=== PATIENT | male | born 1950 | race Caucasian/White ===

== ENCOUNTER 2017-09-06 16:12 | Observation (INO) | payer OTHER ==
[2017-09-06] MEDS ORDERED: MORPHINE 4 MG/ML SYR ONE (17:37)
[2017-09-06] MEDS ORDERED: ONDANSETRON 4 MG/2 ML VIAL ONE ×2 (17:37→21:20)
[2017-09-06] MEDS ORDERED: NA CHLORIDE 0.9% 1,000 ML ONE ×2 (17:37→20:48)
[2017-09-06 18:01] LABS: Absolute Lymphocytes (CBC) 1.5 K/uL (0.7-4.9); Absolute Monocytes 1.4 K/uL (0.1-1.3); Absolute Neutrophil 14.2 K/uL (1.8-8.0); Basophils % 0.6 % (0-1.3); Eosinophils % 1.8 % (0-4.4); Lymphocytes % 8.4 % (15.3-44.8); MCH 28.4 pg (27.0-35.0); MCV 87.1 fL (80-100); MPV 10.4 fL (7.6-11.3); Monocytes % 8.2 % (3.3-12.3); RBC Red Blood Cell Count 5.17 M/uL (4.33-5.43)
[2017-09-06 18:13] LABS: Bicarbonate 30 mEq/L (21-31); Glucose Level 99 mg/dL (65-120); Lipase 27 U/L (22-51); Potassium 3.9 mEq/L (3.6-5.0); Sodium Level 138 mEq/L (135-145)
[2017-09-06 18:19] LABS: ALT/SGPT 22 IU/L (10-60); AST/SGOT 17 IU/L (10-42); Albumin 4.4 g/dL (3.2-5.5); Alkaline Phosphatase 74 IU/L (42-121); Amylase Level 55 U/L (28-100); BUN Blood Urea Nitrogen 16 mg/dL (6-20); Bilirubin Direct 0.1 mg/dL (0-0.2); Bilirubin Total 0.9 mg/dL (0.3-1.2); Protein, Total 7.5 g/dL (6.0-8.3)
[2017-09-06 18:50] LABS: Urine Blood NEGATIVE (NEG); Urine Glucose 2+ (NEG); Urine Protein NEGATIVE (NEG); Urine Specific Gravity 1.025 (1.005-1.030); Urine pH 6.5 (5.0-7.0)
--- NOTE | 2017-09-06 20:30 | RAD REPORT ---
EXAM DESCRIPTION: CT - Abdomen Pelvis W Contrast - 09/06/2017 7:59 pm CLINICAL HISTORY: Abdominal pain. Lower abdominal pain COMPARISON: None. TECHNIQUE: Computed axial tomography of the abdomen and pelvis was obtained. 100 cc Isovue-300 is ad ministered intravenously. Oral contrast was given. All CT scans are performed using dose optimization technique as appropriate and may include automated exposure control or mA/KV adjustment according to patient size. FINDINGS: The liver, spleen, pancreas, adrenals and left kidney appear unremarkable. A nonobstructing [address] calculus is present within the right kidney A 6 millimeter calcification is present within the base of the appendix. The appendix is dilated and fluid-filled. Moderate stranding is present within the adjacent fat. A 26 x 1.5 millimeter curvilinear radiopaque structure is present within the posterior lower pelvis The heart is mildly enlarged IMPRESSION: Appendicitis 26 x 1.5 millimeter curvilinear radiopaque structure within the posterior lower pelvis is of uncertai n etiology. This may represent a foreign body
--- NOTE | 2017-09-06 20:42 | EDPHYS ---
Physician Documentation [facility] Name: Sony Luciano Age: 67 yrs Sex: Male : 1950 Arrival Date: 09/06/2017 Time: 16:12 Bed 15 Private MD: Rom Hamilton V ED Physician Kvng Kim HPI: 09/06 17:15 This 67 yrs old Male presents to ER via Ambulatory with complaints of kb Abdominal Pain. 17:15 The patient presents with abdominal pain in the lower abdomen. Onset: The kb symptoms/episode began/occurred this morning. The symptoms do not radiate. Associated signs and symptoms: Pertinent negatives: nausea, vomiting, and diarrhea, anorexia, fever. The symptoms are described as constant. Modifying factors: The symptoms are alleviated by nothing, the symptoms are aggravated by pressure. Severity of pain: At its worst the pain was moderate in the emergency department the pain is unchanged. The patient has not experienced similar symptoms in the past. The patient has not recently seen a physician. Pt reports lower abd pain since waking up this morning. Denies any other symptoms. States he has had a suppository and an enema today because he didn't have a BM this morning. Last BM was yesterday. States he is very regular so he should have had one this morning. Historical: - Allergies: 16:25 No Known Allergies; hb - Home Meds: 16:25 Pradaxa oral oral [Active]; hb - PMHx: 16:25 Irregular heart rate; hb - PSHx: 16:25 Shoulder - RIGHT; Shoulder - LEFT; hb - Immunization history:: Adult Immunizations up to date. - Social history:: Smoking status: Patient/guardian denies using tobacco. ROS: 17:18 Constitutional: Negative for fever, chills, and weight loss, Cardiovascular: Negative kb for chest pain, palpitations, and edema, Respiratory: Negative for shortness of breath, cough, wheezing, and pleuritic chest pain, Back: Negative for injury and pain, : Negative for injury, bleeding, discharge, and swelling, MS/Extremity: Negative for injury and deformity, Skin: Negative for injury, rash, and discoloration, Neuro: Negative for headache, weakness, numbness, tingling, and seizure. 17:18 Abdomen/GI: Positive for abdominal pain, Negative for nausea, vomiting, and diarrhea, constipation, abdominal cramps, abdominal distension, anorexia. Exam: 17:17 Constitutional: This is a well developed, well nourished patient who is awake, alert, kb and in no acute distress. Head/Face: Normocephalic, atraumatic. Chest/axilla: Normal chest wall appearance and motion. Nontender with no deformity. No lesions are appreciated. Cardiovascular: Regular rate and rhythm with a normal S1 and S2. No gallops, murmurs, or rubs. Normal PMI, no JVD. No pulse deficits. Respiratory: Lungs have equal breath sounds bilaterally, clear to auscultation and percussion. No rales, rhonchi or wheezes noted. No increased work of breathing, no retractions or nasal flaring. Back: No spinal tenderness. No costovertebral tenderness. Full range of motion. Skin: Warm, dry with normal turgor. Normal color with no rashes, no lesions, and no evidence of cellulitis. MS/ Extremity: Pulses equal, no cyanosis. Neurovascular intact. Full, normal range of motion. Neuro: Awake and alert, GCS 15, oriented to person, place, time, and situation. Cranial nerves II-XII grossly intact. Motor strength 5/5 in all extremities. Sensory grossly intact. Cerebellar exam normal. Normal gait. 17:17 Abdomen/GI: Inspection: abdomen appears normal, Bowel sounds: normal, in all quadrants, Palpation: soft, in all quadrants, nontender, in the right upper quadrant, left upper quadrant and left lower quadrant, moderate abdominal tenderness, in the right lower quadrant. Vital Signs: 16:23 BP 171 / 101; Pulse 87; Resp 18; Temp 98.4; Pulse Ox 100% on R/A; Weight 104.33 kg; hb Height 5 ft. 11 in. (180.34 cm); Pain 7/10; 18:00 BP 145 / 98; Pulse 92; Resp 18; Pulse Ox 99% on R/A; ph 19:00 BP 148 / 78; Pulse 90; Resp 18; Pulse Ox 99% on R/A; ph 20:04 BP 147 / 88; Pulse 84; Resp 16; Pulse Ox 97% on R/A; mt 21:30 BP 145 / 86; Pulse 82; Resp 17; Temp 97.9(O); Pulse Ox 100% ; Pain 6/10; bs1 16:23 Body Mass Index 32.08 (104.33 kg, 180.34 cm) hb MDM: 17:07 Patient medically screened. kb 17:17 Data reviewed: vital signs, nurses notes. Data interpreted: Pulse oximetry: on room air kb is 100 %. Interpretation: normal. 20:41 Counseling: I had a detailed discussion with the patient and/or guardian regarding: the kb historical points, exam findings, and any diagnostic results supporting the discharge/admit diagnosis, lab results, radiology results, the need for further work-up and treatment in the hospital. Physician consultation: Jamie Soto MD was contacted at 20:41, regarding admission, to the operating room, patient's condition, and will see patient in ED, shortly. 09/06 17:08 Order name: Amylase, Serum; Complete Time: 18:20 kb 09/06 17:08 Order name: Basic Metabolic Panel; Complete Time: 18:20 kb 09/06 17:08 Order name: CBC with Diff; Complete Time: 18:03 kb 09/06 17:08 Order name: Hepatic Function; Complete Time: 18:20 kb 09/06 17:08 Order name: Lipase; Complete Time: 18:20 kb 09/06 17:57 Order name: Urine Dipstick--Ancillary (enter results) bd 09/06 17:15 Order name: CT Abd/Pelvis - W/Contrast; Complete Time: 20:32 kb 09/06 17:57 Order name: Urine Dipstick-Ancillary; Complete Time: 18:53 EDMS 09/06 20:36 Order name: Chest Single View XRAY; Complete Time: 21:26 kb 09/06 17:08 Order name: Urine Dipstick-Ancillary (obtain specimen); Complete Time: 17:55 kb 09/06 17:08 Order name: IV Saline Lock; Complete Time: 17:55 kb 09/06 17:08 Order name: Labs collected and sent; Complete Time: 17:55 kb 09/06 20:36 Order name: EKG; Complete Time: 20:37 kb 09/06 20:36 Order name: EKG - Nurse/Tech; Complete Time: 21:12 kb 09/06 21:36 Order name: Blood Glucose Level; Complete Time: 21:36 bs1 Administered Medications: 17:54 Drug: Zofran 4 mg Route: IVP; Site: left antecubital; ph 21:42 Follow up: Response: No adverse reaction bs1 17:55 Drug: NS 0.9% 1000 ml Route: IV; Rate: 1000 ml; Site: left antecubital; ph 21:36 Follow up: IV Status: Completed infusion bs1 17:55 Drug: morphine 4 mg Route: IVP; Site: left antecubital; ph 21:42 Follow up: Response: No adverse reaction bs1 21:11 Drug: Flagyl 500 mg Volume: 100 ml; Route: IVPB; Rate: 200 ml/hr; Infused Over: 30 bs1 mins; Site: right antecubital; 21:36 Follow up: IV Status: Infusion continued upon admission bs1 21:11 Drug: NS 0.9% 1000 ml Route: IV; Rate: 125 ml/hr; Site: right antecubital; bs1 21:36 Follow up: IV Status: Infusion continued upon admission bs1 21:12 Drug: Cipro 400 mg Volume: 200 ml; Route: IVPB; Infused Over: 60 mins; Site: right bs1 antecubital; 21:37 Follow up: IV Status: Infusion continued upon admission bs1 Disposition: 09/06/17 20:41 Hospitalization ordered by Jamie Soto for Observation. Preliminary diagnosis is Acute appendicitis. - Bed requested for Telemetry/MedSurg (observation). - Status is Observation. bs1 - Condition is Stable. - Problem is new. - Symptoms are unchanged. UTI on Admission? No Addendum: 09/10/2017 19:16 Co-signature as Attending Physician, Kvng Kim MD. g s Signatures: Dispatcher [employer] EDWA Aline Tapia, LIAM-Rosa WHEELER-Augusta Kelley RN JUSTINA Fanny Whitlock RN JUSTINA Chelita Reaves, RN JUSTINA Kvng Kim MD MD Daniela Salcido, RN RN bs1 Corrections: (The following items were deleted from the chart) 09/06 20:45 20:41 Hospitalization Ordered by Jamie Soto MD for Observation. Preliminary mw diagnosis is Acute appendicitis. Bed requested for Telemetry/MedSurg (observation). Status is Observation. Condition is Stable. Problem is new. Symptoms are unchanged. UTI on Admission? No. kb 20:56 20:45 09/06/2017 20:41 Hospitalization Ordered by Jamie Soto MD for Observation. mw Preliminary diagnosis is Acute appendicitis. Bed requested for Telemetry/MedSurg (observation). Status is Observation. Condition is Stable. Problem is new. Symptoms are unchanged. UTI on Admission? No. mw 21:42 20:56 09/06/2017 20:41 Hospitalization Ordered by Jamie Soto MD for Observation. bs1 Preliminary diagnosis is Acute appendicitis. Bed requested for Telemetry/MedSurg (observation). Status is Observation. Condition is Stable. Problem is new. Symptoms are unchanged. UTI on Admission? No. mw
--- NOTE | 2017-09-06 20:42 | ER ---
Nurse's Notes [facility] Name: Sony Luciano Age: 67 yrs Sex: Male : 1950 Arrival Date: 09/06/2017 Time: 16:12 Bed 15 Private MD: Rom Hamilton V Diagnosis: Acute appendicitis Presentation: 09/06 16:21 Presenting complaint: Patient states: Lower abdominal pain upon waking today. Denies hb N/V/D. Last BM was yesterday. Transition of care: patient was not received from another setting of care. Onset of symptoms was September 06, 2017. Initial Sepsis Screen: Does the patient meet any 2 criteria? No. Patient's initial sepsis screen is negative. Does the patient have a suspected source of infection? No. Patient's initial sepsis screen is negative. Care prior to arrival: None. 16:21 Method Of Arrival: Ambulatory hb 16:21 Acuity: CHRIS 3 hb Historical: - Allergies: 16:25 No Known Allergies; hb - Home Meds: 16:25 Pradaxa oral oral [Active]; hb - PMHx: 16:25 Irregular heart rate; hb - PSHx: 16:25 Shoulder - RIGHT; Shoulder - LEFT; hb - Immunization history:: Adult Immunizations up to date. - Social history:: Smoking status: Patient/guardian denies using tobacco. Screenin:56 Abuse screen: Denies threats or abuse. Denies injuries from another. Nutritional ph screening: No deficits noted. Tuberculosis screening: No symptoms or risk factors identified. Fall Risk None identified. Assessment: 17:30 General: Appears in no apparent distress. comfortable, slender, well groomed, Behavior ph is calm, cooperative, appropriate for age, Denies fever, feeling ill. Pain: Complains of pain in right lower quadrant and left lower quadrant Pain does not radiate. Neuro: Level of Consciousness is awake, alert, obeys commands, Oriented to person, place, time, situation. Cardiovascular: Capillary refill < 3 seconds Patient's skin is warm and dry. Respiratory: Airway is patent Respiratory effort is even, unlabored, Respiratory pattern is regular, symmetrical. GI: Abdomen is flat, non-distended, Bowel sounds present X 4 quads. Abd is soft X 4 quads Abdomen is tender to palpation in right lower quadrant Reports lower abdominal pain, Patient currently denies constipation, diarrhea, nausea, vomiting. : Denies burning with urination, inability to void, urinary frequency. Derm: Skin is intact, is healthy with good turgor, Skin is pink, warm \T\ dry. Musculoskeletal: Circulation, motion, and sensation intact. Range of motion: intact in all extremities. 17:55 Reassessment: Pt completed PO contrast, CT notified. ph 18:31 Reassessment: Patient appears in no apparent distress at this time. Patient and/or ph family updated on plan of care and expected duration. Pain level reassessed. Patient is alert, oriented x 3, equal unlabored respirations, skin warm/dry/pink. Pt resting quietly, awaiting CT scan. 19:10 Reassessment: Patient appears in no apparent distress at this time. No changes from bs1 previously documented assessment. Patient and/or family updated on plan of care and expected duration. Pain level reassessed. Patient is alert, oriented x 3, equal unlabored respirations, skin warm/dry/pink. Report received from JUSTINA Escobedo. Pain: Complains of pain in abdomen and left lower quadrant and left upper quadrant and right upper quadrant and right lower quadrant Pain does not radiate. Neuro: Level of Consciousness is awake, alert, obeys commands, Oriented to person, place, time, situation, Appropriate for age. Respiratory: Airway is patent Respiratory effort is even, unlabored, Respiratory pattern is regular, symmetrical, Breath sounds are clear bilaterally. GI: Abdomen is flat, non-distended, Bowel sounds present X 4 quads. Abd is soft X 4 quads Abdomen is tender to palpation X 4 quads. 20:30 Reassessment: No changes from previously documented assessment. Patient and/or family bs1 updated on plan of care and expected duration. Pain level reassessed. Patient is alert, oriented x 3, equal unlabored respirations, skin warm/dry/pink. 21:39 Reassessment: Patient appears in no apparent distress at this time. No changes from bs1 previously documented assessment. Patient and/or family updated on plan of care and expected duration. Pain level reassessed. Patient is alert, oriented x 3, equal unlabored respirations, skin warm/dry/pink. Patient going straight to OR, report given to JUSTINA Mccann, EKG done, BG 89, vitals wnl. Vital Signs: 16:23 BP 171 / 101; Pulse 87; Resp 18; Temp 98.4; Pulse Ox 100% on R/A; Weight 104.33 kg; hb Height 5 ft. 11 in. (180.34 cm); Pain 7/10; 18:00 BP 145 / 98; Pulse 92; Resp 18; Pulse Ox 99% on R/A; ph 19:00 BP 148 / 78; Pulse 90; Resp 18; Pulse Ox 99% on R/A; ph 20:04 BP 147 / 88; Pulse 84; Resp 16; Pulse Ox 97% on R/A; mt 21:30 BP 145 / 86; Pulse 82; Resp 17; Temp 97.9(O); Pulse Ox 100% ; Pain 6/10; bs1 16:23 Body Mass Index 32.08 (104.33 kg, 180.34 cm) hb ED Course: 16:12 Patient arrived in ED. as 16:14 Rom Hamilton MD is Private Physician. as 16:23 Triage completed. hb 16:23 Arm band placed on left wrist. hb 17:07 Aline Tapia FNP-C is PHCP. kb 17:07 Kvng Kim MD is Attending Physician. kb 17:11 Fanny Whitlock, JUSTINA is Primary Nurse. ph 17:50 Initial lab(s) drawn, by me, sent to lab. Inserted saline lock: 22 gauge in left ph antecubital area, using aseptic technique. Blood collected. 17:59 Patient has correct armband on for positive identification. Placed in gown. Bed in low ph position. Call light in reach. Side rails up X 1. Pulse ox on. NIBP on. Warm blanket given. 18:00 No provider procedures requiring assistance completed. ph 19:[address] via wheelchair. nj 19:59 CT Abd/Pelvis - W/Contrast In Process Unspecified. EDMS 20:00 CT completed. Patient tolerated procedure well. Patient moved back from CT. nj 20:41 Jamie Soto MD is Hospitalizing Provider. kb 21:02 X-ray completed. Portable x-ray completed in exam room. Patient tolerated procedure bb2 well. 21:03 Chest Single View XRAY In Process Unspecified. EDMS 21:41 Patient admitted, IV remains in place. intact. bs1 Administered Medications: 17:54 Drug: Zofran 4 mg Route: IVP; Site: left antecubital; ph 21:42 Follow up: Response: No adverse reaction bs1 17:55 Drug: NS 0.9% 1000 ml Route: IV; Rate: 1000 ml; Site: left antecubital; ph 21:36 Follow up: IV Status: Completed infusion bs1 17:55 Drug: morphine 4 mg Route: IVP; Site: left antecubital; ph 21:42 Follow up: Response: No adverse reaction bs1 21:11 Drug: Flagyl 500 mg Volume: 100 ml; Route: IVPB; Rate: 200 ml/hr; Infused Over: 30 bs1 mins; Site: right antecubital; 21:36 Follow up: IV Status: Infusion continued upon admission bs1 21:11 Drug: NS 0.9% 1000 ml Route: IV; Rate: 125 ml/hr; Site: right antecubital; bs1 21:36 Follow up: IV Status: Infusion continued upon admission bs1 21:12 Drug: Cipro 400 mg Volume: 200 ml; Route: IVPB; Infused Over: 60 mins; Site: right bs1 antecubital; 21:37 Follow up: IV Status: Infusion continued upon admission bs1 Outcome: 20:41 Decision to Hospitalize by Provider. kb 21:40 Admitted to OR accompanied by nurse, via stretcher, with chart, Other Report given to bs1 JUSTINA Mccann. patient going straight to OR then to rm 211. 21:40 Condition: stable 21:40 Instructed on the need for admit, Demonstrated understanding of instructions. 21:42 Patient left the ED. bs1 Signatures: Dispatcher [employer] EDUT Aline Tapia, KRISTEN WHEELER-Sherly Hoffmann Patricia, RN RN Chelita Reaves RN RN Carlos, Kerwin Morelos, Daniela Reed mt, Brittany, RN RN bs1 Corrections: (The following items were deleted from the chart) 18:33 17:56 General: Appears in no apparent distress. comfortable, slender, well groomed, ph Behavior is calm, cooperative, appropriate for age, Denies fever, feeling ill, ph 18:33 17:56 Pain: Complains of pain in right lower quadrant and left lower quadrant Pain does ph not radiate. ph 18:33 17:56 Neuro: Level of Consciousness is awake, alert, obeys commands, Oriented to ph person, place, time, situation, ph 18:33 17:56 Cardiovascular: Capillary refill < 3 seconds Patient's skin is warm and dry. ph ph 18:33 17:56 Respiratory: Airway is patent Respiratory effort is even, unlabored, Respiratory ph pattern is regular, symmetrical, ph 18:33 17:56 GI: Abdomen is flat, non-distended, Bowel sounds present X 4 quads. Abd is soft X ph 4 quads Abdomen is tender to palpation in right lower quadrant Reports lower abdominal pain, Patient currently denies constipation, diarrhea, nausea, vomiting, ph 18:33 17:56 Derm: Skin is intact, is healthy with good turgor, Skin is pink, warm \T\ dry. ph ph 18:33 17:56 : Denies burning with urination, inability to void, urinary frequency, ph ph 18:33 17:56 Musculoskeletal: Circulation, motion, and sensation intact. Range of motion: ph intact in all extremities, ph
[2017-09-06] MEDS ORDERED: METRONIDAZOLE 500mg IVPB 500 MG/100 ML BAG IV ONE (20:48)
[2017-09-06] MEDS ORDERED: CIPROFLOXACIN 400mg IV 400 MG/200 ML BAG IV ONE (20:48)
[2017-09-06] MEDS ORDERED: PROPOFOL 200 MG/20 ML VIAL IV ONE (21:19)
[2017-09-06] MEDS ORDERED: MIDAZOLAM HCL 2 MG/2 ML INJ ONE (21:19)
[2017-09-06] MEDS ORDERED: GLYCOPYRROLATE 0.2 MG/ML SYR ONE (21:20)
[2017-09-06] MEDS ORDERED: FENTANYL CITR 100 MCG/2 ML ONE (21:20)
[2017-09-06] MEDS ORDERED: KETOROLAC 30 MG/ML INJ ONE (21:21)
[2017-09-06] MEDS ORDERED: LIDOCAINE 1% MPF 5 ML VIAL ONE (21:21)
[2017-09-06] MEDS ORDERED: ROCURONIUM 50 MG/5 ML VIAL IV ONE (21:21)
[2017-09-06] MEDS ORDERED: NEOSTIGMINE 1 MG/ML -5 ML SYRINGE ONE (21:22)
--- NOTE | 2017-09-06 21:23 | RAD REPORT ---
EXAM DESCRIPTION: [place] Single View09/06/2017 9:03 pm CLINICAL HISTORY: abd pain COMPARISON: June 2017 FINDINGS: The lungs appear clear of acute infiltrate. The heart is mildly to moderately enlarged IMPRESSION: No acute abnormalities displayed
--- NOTE | 2017-09-06 21:37 | P.BOP ---
Preoperative diagnosis: acute appendicitis Postoperative diagnosis: same Primary procedure: Laparoscopic appendectomy Estimated blood loss: <10cc Specimen: rhonda Findings: as above Anesthesia: General Complications: None Transferred to: Recovery Room Condition: Good
[2017-09-06] MEDS ORDERED: MORPHINE 4 MG/ML SYR IV PRN (22:06)
[2017-09-06] MEDS ORDERED: ACETAMINOPHEN 500 MG TAB PO PRN (22:06)
[2017-09-06] MEDS ORDERED: ONDANSETRON 4 MG/2 ML VIAL IV PRN (22:06)
[2017-09-06] MEDS ORDERED: HYDRALAZINE HCL 20 MG/ML VIAL ONE (22:57)
[2017-09-06] MEDS ORDERED: D50W 25 GM/50 ML SYRINGE IV ONE (23:04)
[2017-09-06] MEDS ORDERED: HYDROCODONE/APAP 7.5/325 MG TAB PO PRN (23:13)
[2017-09-06] MEDS: NA CHLORIDE 0.9% 1,000 ML IV SCH (23:47)
[2017-09-06] MEDS: METRONIDAZOLE 500mg IVPB 500 MG/100 ML BAG IV SCH (23:47)
[2017-09-07 05:15] LABS: Absolute Lymphocytes (CBC) 1.7 K/uL (0.7-4.9); Absolute Monocytes 1.4 K/uL (0.1-1.3); Absolute Neutrophil 12.2 K/uL (1.8-8.0); Basophils % 0.4 % (0-1.3); Eosinophils % 1.2 % (0-4.4); Hematocrit 40.5 % (39.6-49.0); Lymphocytes % 10.9 % (15.3-44.8); MCH 28.7 pg (27.0-35.0); MCV 87.6 fL (80-100); MPV 11.2 fL (7.6-11.3); Monocytes % 9.1 % (3.3-12.3); RBC Red Blood Cell Count 4.63 M/uL (4.33-5.43)
[2017-09-07 05:45] LABS: BUN Blood Urea Nitrogen 14 mg/dL (6-20); Bicarbonate 26 mEq/L (21-31); Glucose Level 80 mg/dL (65-120); Potassium 3.8 mEq/L (3.6-5.0); Sodium Level 141 mEq/L (135-145)
[2017-09-07] MEDS: NA CHLORIDE 0.9% 1,000 ML IV SCH (05:48)
[2017-09-07] MEDS: METRONIDAZOLE 500mg IVPB 500 MG/100 ML BAG IV SCH ×2 (05:48→11:48)
[2017-09-07] MEDS ORDERED: PNEUMOCOCCAL VACCINE 0.5 ML IMVAC ONE (06:00)
[2017-09-07] MEDS ORDERED: Morphine 2 MG/2 ML SYR IV PRN (07:18)
[2017-09-07] MEDS ORDERED: CIPROFLOXACIN 400mg IV 400 MG/200 ML BAG IV SCH (09:00)
--- NOTE | 2017-09-07 10:25 | HP ---
Date of Admission: 09/06/2017 Diagnosis: Right lower quadrant pain. History Of Present Illness: This is the case of a 67-year-old patient complaining of periumbilical r ight lower quadrant pain since yesterday associated with nausea and vomiting. Today, it is getting w orse, so he has had to come to the ER [facility]. He denies any dysuria, hematuria, hematochezia, or me carlos. Denies any recent traveling out of the country. Denies any family member sick at home. [facility] had a colonoscopy about 3 years ago and it was negative. The patient had a shoulder surgery about 2 weeks ago. He is a chronic user of Pradaxa. He is right now rehabbed for his shoul tyson. Past Medical History: Irregular heat rate. Medications: Pradaxa. Past Surgical History: Right shoulder surgery recently. Family History: No colon cancer. Social History: He does not smoke. He does not drink alcohol. Review of Systems: Constitutional: The patient denies any fever or chills. Respiratory: Denies any shortness of breath. Gastrointestinal: As above. He denies any dysuria, hematuria. Physical Examination: General: The patient is awake and alert. HEENT: Pupils are equal and reactive, anicteric. Neck: Supple. Chest: Clear. Heart: S1, S2. Abdomen: Right lower quadrant tenderness with guarding and rebound. Rectal: Deferred. Genitalia: Deferred. Extremities: In the right upper extremity, the patient has immobilized shoulder, although he can fle x his elbow and put it over his body torso. No cyanosis. Dorsalis pedis pulses bilaterally present. Also, no cyanosis of the hands. Neuro: Cranial nerves 2 through 12 grossly within normal limits. Laboratory Data: Blood work shows WBC count of 17.5 with a potassium 3.9 and creatinine is 0.78. Imaging: CAT scan of abdomen and pelvis interpreted by Dr. Taveras as acute appendicitis. Also righ t kidney stone, the patient has pain. Assessment: This is a 67-year-old patient with acute appendicitis. The benefits, alternatives, and risks of emergent laparoscopic, possible open appendectomy fully explained to the patient, which incl ude but are not limited to infection, bleeding, damage to adjacent structures, anesthesia complicatio n, abscess, PR, even . He also understands this may not relieve any symptoms. He might need mo re than one surgical intervention. He understood. The OR was emergently called. LINWOOD Voice ID: [id number]
--- NOTE | 2017-09-07 12:13 | P.HP ---
Certification for Inpatient Patient admitted to: Inpatient With expected LOS: >2 Midnights Practitioner: I am a practitioner with admitting privileges, knowledge of patient current condition, hospital course, and medical plan of care. Services: Services provided to patient in accordance with Admission requirements found in Title 42 Section 412.3 of the Code of Federal Regulations Patient History Date of Service: 09/07/17 Reason for admission: CONSTIPATION. History of Present Illness: MR. WALLACE HAS HAD CONSTIPATION JUST LATELY. HE IS USUALLY REGULAR. COMES TO ER . HE SAID HE DID NOT HAVE MUCH PAIN. HE HAD TAKEN AN ENEMA YESTERDAY. HE WAS TENDER RLQ PER EXAMINER. HIS CT SCAN SHOWED ACUTE APPENDICITIS. HE HAD SURGERY BY DR. Klarissa GALINDO AND NOW HE IS ON THE FLOOR. I AM HIS PCMD. THEY CALLED ME TO MANAGE HIS DM. Allergies No Known Allergies Allergy (Unverified 09/07/17 09:51) Home Medications: Allopurinol [Zyloprim*] 300 mg PO DAILY 09/07/17 Dabigatran Etexilate Mesylate [Pradaxa*] 150 mg PO DAILY 09/07/17 Digoxin [Lanoxin] 250 mg PO DAILY 09/07/17 Empagliflozin/Metformin HCl [Synjardy 12.5-1,000 mg Tablet] 12.5 units PO BID Furosemide 40 mg PO DAILY 09/07/17 Insulin Glargine,Hum.rec.anlog [Lantus] 70 units SQ BID 09/07/17 Lisinopril 40 mg PO DAILY 09/07/17 Potassium Chloride [Klor-Con 10] 10 meq PO DAILY 09/07/17 Rosuvastatin [Crestor*] 20 mg PO BEDTIME 09/07/17 - Past Medical/Surgical History Has patient received pneumonia vaccine in the past: Yes Diabetic: Yes -: Diabetes Mellitus -: Afib -: HTN -: Sleep Apnea -: R shoulder surgery - Family History Father -: Other (see notes) Notes: Dad has no known disease Mother -: Other (see notes) Notes: Brain tumor - Social History Smoking Status: Never smoker Alcohol use: Yes CD- Drugs: No Caffeine use: Yes Place of Residence: Home Review of Systems 10-point ROS is otherwise unremarkable Physical Examination - Vital Signs Temperature: 97.8 F Blood Pressure: 153/74 Pulse: 94 Respirations: 16 Pulse Ox (%): 98 - Physical Exam General: Alert, In no apparent distress HEENT: Atraumatic, PERRLA, Mucous membr. moist/pink, EOMI, Sclerae nonicteric Neck: Supple, 2+ carotid pulse no bruit, No LAD, Without JVD or thyroid abnormality Respiratory: Clear to auscultation bilaterally, Normal air movement Cardiovascular: Regular rate/rhythm, Normal S1 S2 Gastrointestinal: Normal bowel sounds, Non-distended (POST OP TENDER.), No tenderness Musculoskeletal: No tenderness Integumentary: No rashes Neurological: Normal gait, Normal speech, Normal strength at 5/5 x4 extr, Normal tone, Normal affect Lymphatics: No axilla or inguinal lymphadenopathy - Studies Laboratory Data (last 24 hrs) 09/06/17 17:50: WBC 17.5 H, Hgb 14.7, Hct 45.0, Plt Count 194 09/06/17 17:50: Sodium 138, Potassium 3.9, BUN 16, Creatinine 0.78, Glucose 99, Total Bilirubin 0.9, AST 17, ALT 22, Alkaline Phosphatase 74, Amylase 55, Lipase 27 Assessment and Plan - Problems (Diagnosis) (1) Foreign body Current Visit: Yes Status: Acute Plan: ON CT SCAN UNCLEAR WHAT THIS IS COULD THIS BE IN RECTUM? HE TOOK AN ENEMA BUT FRIEND SAYS THE WHOLE TUBE WAS INTACT. (2) Diabetes Current Visit: Yes Status: Acute Qualifiers: Diabetes mellitus type: type 2 (3) A-fib Current Visit: Yes Status: Acute Plan: STABLE. Qualifiers: Atrial fibrillation type: chronic Qualified Code(s): I48.2 - Chronic atrial fibrillation (4) Acute appendicitis Onset Date: 09/07/17 Current Visit: Yes Status: Acute Plan: SP SURGERY. STABLE MEDIALLY. - Advance Directives Does patient have a Living Will: Yes Does patient have a Durable POA for Healthcare: Yes
--- NOTE | 2017-09-07 14:19 | P.DS ---
Admission Date: 09/06/17 Discharge Date: 09/07/17 Disposition: ROUTINE DISCHARGE Discharge Condition: GOOD Reason for Admission: appendicitis, peritonitis Vital Signs/Physical Exam: Temp Pulse Resp BP Pulse Ox 97.8 F 94 H 16 153/74 H 98 09/07/17 12:13 09/07/17 12:13 09/07/17 12:13 09/07/17 12:13 09/07/17 12:13 General: Alert, In no apparent distress, Oriented x3, Cooperative HEENT: PERRLA, EOMI Neck: Supple Cardiovascular: No edema, Normal pulses Gastrointestinal: Soft and benign Musculoskeletal: No erythema, No tenderness, No warmth Integumentary: No rashes, No breakdown, No cyanosis Neurological: Normal speech Laboratory Data at Discharge: WBC 15.5 K/uL (4.3-10.9) H 09/07/17 04:17 Hgb 13.3 g/dL (13.6-17.9) L 09/07/17 04:17 Hct 40.5 % (39.6-49.0) 09/07/17 04:17 Plt Count 170 K/uL (152-406) 09/07/17 04:17 Sodium 141 mEq/L (135-145) 09/07/17 04:17 Potassium 3.8 mEq/L (3.6-5.0) 09/07/17 04:17 BUN 14 mg/dL (6-20) 09/07/17 04:17 Creatinine 0.71 mg/dL (0.61-1.24) 09/07/17 04:17 Glucose 80 mg/dL (65-120) 09/07/17 04:17 Total Bilirubin 0.9 mg/dL (0.3-1.2) 09/06/17 17:50 AST 17 IU/L (10-42) 09/06/17 17:50 ALT 22 IU/L (10-60) 09/06/17 17:50 Alkaline Phosphatase 74 IU/L (42-121) 09/06/17 17:50 Amylase 55 U/L (28-100) 09/06/17 17:50 Lipase 27 U/L (22-51) 09/06/17 17:50 Home Medications: Allopurinol [Zyloprim*] 300 mg PO DAILY 09/07/17 Ciprofloxacin HCl [Cipro 500 MG Tablet] 500 mg PO BID #12 tab 09/07/17 Codeine/APAP [Tylenol W/Codeine #3 tab] 1 tab PO Q4HP PRN #30 tab 09/07/17 Dabigatran Etexilate Mesylate [Pradaxa*] 150 mg PO DAILY 09/07/17 Digoxin [Lanoxin] 250 mg PO DAILY 09/07/17 Empagliflozin/Metformin HCl [Synjardy 12.5-1,000 mg Tablet] 12.5 units PO BID Furosemide 40 mg PO DAILY 09/07/17 Insulin Glargine,Hum.rec.anlog [Lantus] 70 units SQ BID 09/07/17 Lisinopril 40 mg PO DAILY 09/07/17 Potassium Chloride [Klor-Con 10] 10 meq PO DAILY 09/07/17 Rosuvastatin [Crestor*] 20 mg PO BEDTIME 09/07/17 New Medications: Ciprofloxacin HCl [Cipro 500 MG Tablet] 500 mg PO BID #12 tab Codeine/APAP [Tylenol W/Codeine #3 tab] 1 tab PO Q4HP PRN #30 tab PRN Reason: Pain Diet: AHA Activity: No lifting more than 10 lbs Followup: Rom Hamilton MD [ACTIVE - CAN ADMIT] - 1 Week (Follow up in office in 1 week. Call to schedule an appointment.) Jamie Soto MD [ACTIVE - CAN ADMIT] - 1 Week (Follow up in office in 1 week. Call to schedule an appointment. )
--- NOTE | 2017-09-07 14:38 | EKG ---
Test Date: 2017-09-06 Test Time: 22:50:14 Production Operations Engineer: RT Brown MEASUREMENT RESULTS: Intervals: Rate: 83 ID: QRSD: [id number] QT: 376 QTc: 441 [place]: P: ID: QRS: [id number] T: 158 INTERPRETIVE STATEMENTS: Atrial fibrillation Incomplete left bundle branch block Nonspecific ST and T wave abnormality, probably digitalis effect Abnormal ECG Compared to ECG 09/06/2017 21:02:57 No significant changes Electronically Signed On 09-07-17 14:34:20 CDT by Tad Renee
--- NOTE | 2017-09-07 14:39 | EKG ---
Test Date: 2017-09-06 Test Time: 21:02:57 Telecom Specialist: LES MEASUREMENT RESULTS: Intervals: Rate: 89 OR: QRSD: 118 QT: 364 QTc: 442 [place]: P: OR: QRS: -3 T: 120 INTERPRETIVE STATEMENTS: Atrial fibrillation Incomplete left bundle branch block Nonspecific ST and T wave abnormality, probably digitalis effect Abnormal ECG Compared to ECG 03/09/2012 10:08:12 ST (T wave) deviation now present Electronically Signed On 09-07-17 14:34:24 CDT by Tad Renee
[2017-09-07] MEDS ORDERED: EMPAGLIFLOZIN PO SCH (21:00)
[2017-09-07] MEDS ORDERED: ROSUVASTATIN 10 MG TAB PO SCH (21:00)
[2017-09-07] MEDS ORDERED: INSULIN DETEMIR 100 UNIT/1 ML INSULIN SQ SCH (21:00)
[2017-09-07] MEDS ORDERED: METFORMIN HCL PO SCH (21:00)
[2017-09-07] MEDS ORDERED: [UNRECOGNIZED DRUG - OTHER] PO SCH (21:00)
[2017-09-08] MEDS ORDERED: ALLOPURINOL 300 MG TAB PO SCH (09:00)
[2017-09-08] MEDS ORDERED: FUROSEMIDE 40 MG TABLET PO SCH (09:00)
[2017-09-08] MEDS ORDERED: LISINOPRIL 20 MG TAB PO SCH (09:00)
[2017-09-08] MEDS ORDERED: POTASSIUM CL SA 10 MEQ TAB PO SCH (09:00)
[2017-09-08] MEDS ORDERED: DIGOXIN 0.25 MG TABLET PO SCH (09:00)
[2017-09-08] MEDS ORDERED: DABIGATRAN 150 MG CAP PO SCH (09:00)
--- NOTE | 2017-10-19 00:53 | OP ---
Date of Procedure: 09/06/2017 Surgeon: Jamie Soto MD Diagnosis: Acute appendicitis. Postoperative Diagnosis: Acute appendicitis. Procedure: Laparoscopic appendectomy. Estimated Blood Loss: Less than 10 cc. Specimen: Appendix. Anesthesia: General plus local. Indications: This is a case of a male who came to us with above diagnosis. Fully explained the bene fits, alternatives, and risks of laparoscopic, possible open appendectomy which include but are not l imited to infection, bleeding, damage to adjacent structures, anesthesia complication, RI, and even d eath. He also understands that this may not relieve any symptoms. He might need more than one surgi zehra intervention. He understood and signed a consent. Description Of Procedure: The patient was brought to the operating room and placed in supine positio n. Anesthesia was done without complication. Abdominal area was prepped and draped in the usual elena rile fashion. Marcaine 0.5% was injected for local anesthetic, followed by sharp incision of the ski n in the periumbilical region. Incision was carried down to the fascia, which was opened under direc t vision. Peritoneum was encountered and opened under direct vision. Vicryl #1 was placed inside th e fascia. Tim trocar was carefully introduced. No bleeding was obtained. I proceeded to put 2 m ore trocars, 5 mm each one of them, 1 in the suprapubic area and another one in the left lower quadra nt using the same technique, which consisted of local anesthetic, sharp incision of the skin, and int roduction of the trocars under direct vision. This allowed me to visualize the area of the right upp er quadrant with that of an appendix, looks inflamed, so the base of the appendix seems to be spared, so we created a window in the base of the appendix, transected that with an Endo-ABBY 45 mm 3.5 and t ransected the base of the appendix with Endo-ABBY 45 mm 3.5 and the mesoappendix transected with an En do-ABBY 45 mm 2.5. No bowel leak and no bleeding. At that moment, I removed the appendix with an end o sac through the umbilical incision. The area was inspected once again after irrigation and suction and the area looks intact with no bleeding and no bowel leak. At that moment, I proceeded to remove the trocars under direct vision, deflated the pneumoperitoneum, closed the fascia with #1 Vicryl, ir rigated the subcu tissue, closed that with 3-0 chromic, and skin was approximated. Sponge count and instrument count were correct. The patient tolerated the procedure well. The patient was sent to re covery room in stable condition. RSOARIO/OZZIE Voice ID: [id number] Report ID: [id number]
== END 2017-09-07 14:21 | disposition home or self-care (01) ==
LOC: ER 16:12 → 2ND 21:02
PROVIDERS: ADMIT Surgery; ATTEND Surgery
PROC: 0DTJ4ZZ Resection of Appendix, Percutaneous Endoscopic Approach (ICD-10-PCS; principal; 2017-09-06 21:30)
DX: K35.80 Unspecified acute appendicitis (principal); E11.9 Type 2 diabetes mellitus without complications; I48.2 Chronic atrial fibrillation; I10 Essential (primary) hypertension; R93.5 Abnormal findings on diagnostic imaging of other abdominal regions, including retroperitoneum; Z23 Encounter for immunization
CPT/HCPCS: 36415; 71045; 74177; 80048; 80076; 81003; 82150; 82962; 83690; 85025; 88304; 88305; 90670; 93005; 96361; 96365; 96368; 96375; 99285; G0009; G0378; J0360; J0744; J2250; J2405; J2710; J3010; J7030; Q9967

== ENCOUNTER 2022-11-25 06:24 | Day surgery (SDC) | payer OTHER ==
--- NOTE | 2022-11-23 15:05 | RAD REPORT ---
EXAM DESCRIPTION: Campbell Castañeda (2 Views)11/23/2022 2:50 pm CLINICAL HISTORY: Preop for hernia repair COMPARISON: 2018 FINDINGS: The lungs appear clear of acute infiltrate. The heart is moderately to markedly enlarged IMPRESSION: No acute abnormalities displayed
[2022-11-23 15:07] LABS: Hematocrit 49.4 % (39.6-49.0); Lymphocytes % 19.6 % (15.3-44.8); MCV 92.3 fL (80-100); MPV 9.6 fL (7.6-11.3); RBC Red Blood Cell Count 5.35 M/uL (4.33-5.43)
[2022-11-23 17:52] LABS: Potassium 4.6 mEq/L (3.5-5.1)
[2022-11-25] MEDS ORDERED: NA CHLORIDE 0.9% 1,000 ML ONE ×2 (06:52→09:20)
[2022-11-25] MEDS ORDERED: CEFAZOLIN SODIUM 1 GM/VIAL ONE (06:52)
[2022-11-25] MEDS ORDERED: FENTANYL CITR 100 MCG/2 ML ONE (07:16)
[2022-11-25] MEDS ORDERED: KETOROLAC 30 MG/ML INJ ONE (07:16)
[2022-11-25] MEDS ORDERED: LIDOCAINE 2% MPF 5 ML VIAL ONE (07:16)
[2022-11-25] MEDS ORDERED: ROCURONIUM 50 MG/5 ML VIAL IV ONE (07:16)
[2022-11-25] MEDS ORDERED: propofoL 200 MG/20 ML VIAL IV ONE (07:16)
[2022-11-25] MEDS ORDERED: MIDAZOLAM HCL 2 MG/2 ML INJ ONE (07:17)
[2022-11-25] MEDS ORDERED: ONDANSETRON 4 MG/2 ML VIAL ONE (07:17)
[2022-11-25] MEDS ORDERED: GLYCOPYRROLATE 0.2 MG/ML SYR ONE ×3 (08:10→08:35)
--- NOTE | 2022-11-25 08:19 | P.BOP ---
Preoperative diagnosis: incarcerated tender umbilical hernia Postoperative diagnosis: same Primary procedure: Laparoscopic repair of incarcerated tender umbilical hernia with mesh 3x3cm Agriculture Inspector: SARAH MENDES (RACE CAR DRIVER) Estimated blood loss: <10cc Specimen: sac Findings: incarcerated omentum Anesthesia: General Complications: None Implants: medium ventralex Transferred to: Recovery Room Condition: Good
[2022-11-25] MEDS ORDERED: NEOSTIGMINE 1 MG/ML -10 ML VIAL ONE (08:43)
[2022-11-25 09:36] VITALS: BP 102/43; TEMP 96.4; O2SAT 96
--- NOTE | 2022-11-25 16:26 | DS ---
Date of Discharge: 11/25/2022 Diagnosis: Incarcerated tender umbilical hernia. Procedure: Laparoscopic repair of incarcerated tender umbilical hernia with mesh. Disposition: Home. Activity: As tolerated. No heavy lifting. Plan: Follow up in my office in 1 week. Call for appointment at [phone]. Keep area dry for 48 taj rs, then may shower. Keep Steri-Strips intact. ROSARIO/OZZIE Voice ID: [id number] Report ID: [id number]
--- NOTE | 2022-11-25 16:26 | OP ---
Date of Procedure: 11/25/2022 Surgeon: Jamie Soto MD Procurement Inspector: Deana Bustillo. Preoperative Diagnosis: Incarcerated tender umbilical hernia. Postoperative Diagnosis: Incarcerated tender umbilical hernia. Procedure: Laparoscopic repair of incarcerated tender umbilical hernia with mesh. Estimated Blood Loss: Less than 10 cc. Findings: Incarcerated omentum. Anesthesia: General plus local. Implant: A medium Ventralex mesh. Indication: This is the case of a male, who comes to us with a tender umbilical hernia, cannot be re duced. Benefits, alternatives, and risks of laparoscopic possible repair of umbilical hernia fully e xplained. The area of concern is about 3 x 3 cm. This patient understands the benefits, alternative s, and risks, which include, but not limited to infection, bleeding, damage to adjacent structures, a nesthesia complication, recurrence, CA, and even . He also understands this may not relieve any symptoms. He might need more than one surgical intervention. He also understands the importance of losing weight and being careful with heavy lifting. Constipation is important to avoid too. He und erstands we may use mesh in that regions, so all the pros and cons of mesh were discussed with the sawyer guzman and all the questions were answered to his satisfaction. He signed a consent. The area of con cern was marked by me and the patient in the holding room. Procedure In Detail: The patient was brought to the operating room, placed in supine position. Anes thesia was done without complication. Abdominal area was prepped and draped in the usual sterile fas hion. Local anesthesia was applied followed by sharp incision of the skin in the infraumbilical hammad on. The incision was carried down until we found the fascial edges. We opened the umbilical hernia sac and we found the patient to have the omentum trapped in that area. Some adhesions were removed w ith the scissors and then we were able to reduce omentum after fully inspecting and making sure it wa s viable. We cleaned the fascial edges. We noticed the fascial edges are friable, so we have to tri m them and then I believe he is going to benefit from a mesh in that region, so we put a Tim troca r through that region and obtained pneumoperitoneum. We placed 5 mm trocar to each side of the abdom en. This allowed me to change the camera to those and visualize the area properly. We selected the mesh that covered the area about 3-5 cm. We placed Vicryl #1 inside the fascia to approximate the ar ea after the mesh was placed in. The mesh was then secured in place circumferentially with the help of the SorbaFix fixation device to minimize the chance of intestines getting in between. Once we hav e those areas there, we were able to tie the umbilical fascial edges and approximate with the help wi th #1 Vicryl. This created air and water tight. We looked at the mesh once again inside, we already cut the straps that came attached to it. It looks nice and flat against the abdominal wall. We ins pected the omentum once again and looks viable. So, at that moment, I proceeded to deflate pneumoper itoneum, removed the trocars and closed the subcutaneous tissue with 3-0 chromic and skin with 3-0 ch romic and Steri-Strips on top. Sponge count, instrument counts correct. The patient tolerated the p rocedure well. The patient was sent to recovery in stable condition. ROSARIO/OZZIE Voice ID: [id number] Report ID: [id number]
== END 2022-11-25 10:15 | disposition home or self-care (01) ==
LOC: PRE 06:24 → OR 10:15
PROVIDERS: ATTEND Surgery
PROC: 0WUF4JZ Supplement Abdominal Wall with Synthetic Substitute, Percutaneous Endoscopic Approach (ICD-10-PCS; principal; 2022-11-25 07:30)
DX: K42.0 Umbilical hernia with obstruction, without gangrene (principal)
CPT/HCPCS: 85025; 80048; 36415; 82947 ×2; 88304; 71046; 49594; J2704; J2710; J2001; J2250; J3010; J2405; J7030 ×2; J0690

== ENCOUNTER 2022-12-03 11:46 | Inpatient (IN) | payer OTHER ==
[2022-12-03] MEDS ORDERED: NACHLORIDE 0.45% 1,000 ML IV SCH ×2 (13:00)
[2022-12-03] MEDS ORDERED: ONDANSETRON 4 MG/2 ML VIAL IV PRN (13:00)
[2022-12-03] MEDS ORDERED: ACETAMINOPHEN 325 MG TABLET PO PRN (13:00)
[2022-12-03] MEDS ORDERED: LOPERAMIDE HCL 2 MG CAPSULE PO PRN (13:00)
[2022-12-03] MEDS ORDERED: ONDANSETRON 4 MG (ODT) TAB PO PRN (13:00)
[2022-12-03] MEDS ORDERED: DIPHENHYDRAMINE 25 MG TAB/CAP PO PRN (13:00)
[2022-12-03] MEDS ORDERED: POLYETHYL GLY 3350 17 GM/DOSE PO PRN (13:00)
[2022-12-03] MEDS ORDERED: D50W 25 GM/50 ML SYRINGE IV PRN ×2 (13:05→13:37)
[2022-12-03] MEDS ORDERED: GLUCAGON 1 MG/VIAL IM PRN ×2 (13:05→13:37)
[2022-12-03] MEDS: INSULIN -REGULAR HUMAN 50 UNIT/0.5 ML ML IV ONE ×2 (13:08→16:54)
[2022-12-03] MEDS ORDERED: D50W 25 GM/50 ML SYRINGE IV ONE ×2 (13:15→16:37)
[2022-12-03] MEDS ORDERED: SODIUM ZIRCONIUM CYCLOSILICATE 10 GM/PKT PO ONE (13:15)
[2022-12-03] MEDS ORDERED: D10W 125 ML IV PRN (13:17)
--- NOTE | 2022-12-03 13:17 | EKG ---
Test Date: 2022-12-03 Test Time: 13:10:44 Account Collector: RIMMA MEASUREMENT RESULTS: Intervals: Rate: 29 [place]: QRSD: 162 QT: 502 QTc: 348 [place]: P: CA: QRS: -71 T: 75 INTERPRETIVE STATEMENTS: Idioventricular rhythm Left axis deviation Left bundle branch block Abnormal ECG Compared to ECG 09/06/2017 22:50:14 Idioventricular rhythm now present Left-axis deviation now present Atrial fibrillation no longer present ST (T wave) deviation no longer present Electronically Signed On 12-03-22 13:16:59 CDT by Luis Haque
[2022-12-03 13:57] LABS: Absolute Lymphocytes (CBC) 2.6 K/uL (0.7-4.9); Hematocrit 48.3 % (39.6-49.0); Lymphocytes % 20.5 % (15.3-44.8); MCV 93.1 fL (80-100); MPV 9.7 fL (7.6-11.3); RBC Red Blood Cell Count 5.18 M/uL (4.33-5.43)
[2022-12-03 14:00] LABS: Albumin 4.3 g/dL (3.4-5.0); Bilirubin Direct 0.2 mg/dL (0-0.2); Bilirubin Indirect, Calculated 0.3 mg/dL (0.2-0.8); Bilirubin Total 0.5 mg/dL (0.2-1.0); Protein, Total 7.9 g/dL (6.4-8.2)
[2022-12-03 14:19] LABS: Digoxin Level 1.7 ng/mL (0.80-2.00)
[2022-12-03 14:23] LABS: Potassium 8.1 mEq/L (3.5-5.1)
--- NOTE | 2022-12-03 14:42 | RAD REPORT ---
EXAM DESCRIPTION: RAD - Chest Pa And Lat (2 Views) - 12/03/2022 2:13 pm CLINICAL HISTORY: direct admit COMPARISON: Chest Pa And Lat (2 Views) dated 11/23/2022; Chest Single View dated 09/06/2017; Chest Pa And Lat (2 Views) dated 06/30/2017; CHEST PA AND LAT 2 VIEW dated 03/09/2012 FINDINGS: Lines: None. Lungs: No evidence of edema or pneumonia. Pleural: No significant pleural effusions or pneumothorax. Cardiac: Cardiomegaly. Mediastinum: Within normal limits. Bones: No acute fractures. Other: None IMPRESSION: No acute cardiopulmonary disease.
[2022-12-03] MEDS ORDERED: ALBUTEROL 2.5 MG/3 ML NEB SOL ONE (15:05)
[2022-12-03] MEDS ORDERED: ALBUTEROL 2.5 MG/3 ML NEB SOL NEB ONE (15:11)
[2022-12-03] MEDS ORDERED: CALCIUM GLUCONATE 1 GM IVPB 1 GM/50 ML BAG IV ONE (15:30)
[2022-12-03] MEDS ORDERED: NS 0.9% VIAL 10 ML ONE (15:40)
[2022-12-03] MEDS ORDERED: HEPARIN 5000 UNIT/ML 1 ML VIAL ONE (15:41)
[2022-12-03] MEDS ORDERED: NA CHLORIDE 0.9% 100 ML ONE (15:41)
[2022-12-03] MEDS ORDERED: NS 0.9% VIAL 20 ML ONE (15:48)
[2022-12-03 15:55] LABS: Phosphorus 6.4 mg/dL (2.5-4.9); Thyroid Stimulating Hormone 0.714 uIU/mL (0.358-3.740)
[2022-12-03] MEDS: ALBUTEROL 2.5 MG/3 ML NEB SOL NEB SCH ×3 (16:00→23:30)
[2022-12-03 16:12] LABS: Arterial Blood Carboxyhemoglob 1.2 % (0-1.5); Blood Gas Oxyhemoglobin 93.9 % (94-97); Blood O2 Saturation 96.2 % (92-98.5)
[2022-12-03] MEDS ORDERED: FUROSEMIDE 40 MG/4 ML VIAL IV ONE ×2 (16:17→23:22)
[2022-12-03] MEDS ORDERED: LIDOCAINE 1% 20 ML MDV ONE (16:17)
--- NOTE | 2022-12-03 16:51 | P.CNS ---
Date of Consult: 12/03/22 Reason for consult: Needs urgent dialysis History of present illness: Patient is a 72-year-old gentleman who was admitted with hyperkalemia. Patient was given Bactrim. He was unaware that he was allergic to it. He states that he had a hernia surgery about a week ago. Was doing well until recently. Once the labs were done and patient was admitted to ICU and nephrology consult was obtained. Patient's heart rate is in the 20s. Blood pressure is maintained however. There is no attempt to pace the patient at this time. And I was asked to put a stat Leo catheter for urgent hemodialysis. Review of systems: Patient is awake alert no acute distress. Past medical history: Diabetes type 2, A-fib, Past surgical history: Appendectomy and umbilical hernia repair Allergies: Bactrim Social history: Does not smoke drinks alcohol occasionally Family history: Noncontributory Vital signs: Heart rate in the 20s on paced, blood pressure is within normal limits and afebrile Physical exam: Awake, alert and oriented x3 Head and neck exam: No masses Chest: Clear Heart: S1-S2 Abdomen: Soft Extremity: Neurovascular intact, nontender Neuro: Nonfocal Diagnostic data: Potassium of 8.2 Assessment: Hyperkalemia requiring urgent dialysis Plan/recommendation: Placement of Leo catheter. Patient and understands risk, benefits and alternatives and agrees to procedure. Procedure note: First, patient prepped and draped in usual sterile fashion in the right groin. Doppler device used to locate the right femoral artery. It was difficult because of patient's significant bradycardia. Lidocaine 1% was infiltrated locally. 18-gauge needle used to access presumably the right femoral vein. Blood was dark and did not appear to be pulsatile. Vein was dilated and Seldinger technique was used catheter was placed. There was a very weak pulsatile flow at this time through the catheter. A stat ABG was done. It was consistent with arterial blood. Catheter was removed. Direct pressure was applied for at least 20 minutes. There was no hematoma noted and there was no evidence of bleeding noted pressure dressing was applied and a sandbag was placed. Right neck was prepped and draped in the usual sterile fashion. Lidocaine 1% was infiltrated locally. 18-gauge needle used to access the right IJ vein. Derrick dewire passed. Vein dilated. Seldinger technique used. Catheter placed and secured with 3-0 nylon. Nonpulsatile dark blood was seen. Catheter was flushed with heparin and packed with heparin with good blood flow. 3-0 nylon was used to secure the catheter to the skin. Sterile dressing was applied. Chest x-ray has been ordered. Patient tarted the procedure in stable condition. Dr. Hamilton and the were made aware of difficulty with the right groin region. CC:
--- NOTE | 2022-12-03 17:01 | RAD REPORT ---
EXAM DESCRIPTION: RAD - Chest Single View - 12/03/2022 4:55 pm CLINICAL HISTORY: R/O Pneumo. COMPARISON: Chest Pa And Lat (2 Views) dated 12/03/2022; Chest Pa And Lat (2 Views) dated 11/23/2022; Chest Single View dated 09/06/2017; Chest Pa And Lat (2 Views) dated 06/30/2017 FINDINGS: Lines: Right IJ approach dialysis catheter. The tip is partially obscured by the defibrill ator pads. Lungs: No evidence of edema or pneumonia. Pleural: No significant pleural effusions or pneumothorax. Cardiac: Cardiomegaly. Mediastinum: Within normal limits. Bones: No acute fractures. Other: None IMPRESSION: No pneumothorax. Tip of the dialysis catheter is obscured by the defibrillator pads and cannot be assessed.
[2022-12-03] MEDS ORDERED: DOPAMINE/D5W 400 MG/250 ML BAG IV SCH (17:15)
[2022-12-03] MEDS ORDERED: PNEUMOCOCCAL VACCINE 0.5 ML IMVAC ONE (18:00)
[2022-12-03 19:07] LABS: Protime INR 1.24
[2022-12-03 19:28] LABS: Potassium 6.4 mEq/L (3.5-5.1)
[2022-12-03 19:29] LABS: Bilirubin Total 0.5 mg/dL (0.2-1.0); Magnesium 2.5 mg/dL (1.6-2.4); Phosphorus 6.1 mg/dL (2.5-4.9); Protein, Total 7.4 g/dL (6.4-8.2); Troponin High Sensitivity 30.8 pg/mL (<58.9); Uric Acid 7.8 mg/dL (3.5-7.2)
[2022-12-03 19:32] LABS: Potassium 6.4 mEq/L (3.5-5.1)
[2022-12-03 20:11] LABS: Hepatitis B surface AG Interp. Nonreactive (Nonreactive)
[2022-12-03 20:13] LABS: Hepatitis B Surface Ab - Quant < 3.10 mIU/mL (<8.0)
--- NOTE | 2022-12-03 20:43 | RAD REPORT ---
EXAM DESCRIPTION: RAD - Abdomen 1 View (KUB) - 12/03/2022 6:17 pm CLINICAL HISTORY: jaimie COMPARISON: Chest Single View dated 12/03/2022; Abdomen Pelvis W Contrast dated 09/06/2017 FINDINGS: Nonobstructive bowel gas pattern. No acute osseous abnormality.Visualized lungs are unrema rkable.No abnormal calcifications. Thin linear radiopaque foreign body overlying the pelvis is of unc ertain etiology. It was present on the prior CT from 09/06/2017. IMPRESSION: Nonobstructive bowel gas pattern.
[2022-12-03 21:00] VITALS: BMI 33.2
[2022-12-03] MEDS: INSULIN -REGULAR HUMAN 50 UNIT/0.5 ML ML SQ SCH (21:00)
[2022-12-03] MEDS: SODIUM ZIRCONIUM CYCLOSILICATE 10 GM/PKT PO SCH (21:00)
--- NOTE | 2022-12-03 22:33 | CON ---
Date of Consultation: 12/03/2022 Reason For Consultation: Bradycardia. History Of Present Illness: 72-year-old male who has history of diabetes, atrial fibrillation, hyper tension, he was on digoxin and he was on some diuretics and potassium supplements. He apparently was given Bactrim recently. He went into acute renal failure and presented with severe symptomatic eliot ycardia, heart rate in the low 20s, very fatigued and however, maintaining good blood pressure. Eval uated him by bedside. He was alert, awake, oriented x3, and blood pressure is above 65 with a mean p erfusing pressure was about 65 and systolic was in the 130s. Past Medical History: As outlined above in the HPI. Medications: Refer reconciliation sheet for detailed list. Allergies: NO KNOWN DRUG ALLERGIES. Family History: No premature coronary artery disease or cancer. Social History: Does not smoke or drink. Does not use any drugs. Review of Systems: All systems reviewed and they are negative except mentioned in HPI. Physical Examination: Vital Signs: Reviewed. Head and Neck: Pupils are equal, reactive to light. Intact eye movements. No JVD. No cervical nod es. Neck is supple. Thyroid is not enlarged. Lungs: Clear to auscultation bilaterally. No rhonchi, rales, or crackles. No accessory muscle use. Heart: Regular rate and rhythm. No extra sounds. Abdomen: Soft, nontender. Bowel sounds positive. No organomegaly. No masses or hernia. No rigidi ty or rebound. Extremities: No edema, clubbing, cyanosis. Intact pulses. Skin: No rashes. Neurologic: Alert, awake, oriented x3. No acute focal deficits appreciated. Lymph Nodes: No cervical or axillary lymphadenopathy. Investigations: Potassium is 7, BUN 55, creatinine 7.35. Hemoglobin is 15.6. Assessment And Recommendation: 1.Profound sinus bradycardia. This is due to hyperkalemia. Recommend emergent dialysis, to place a Leo catheter, and start dialysis immediately. 2.I put the patient on transcutaneous pacing and he is maintaining good blood pressure and acceptabl e heart rate. After correcting the hyperkalemia, heart rate should improve, but also patient was on digoxin and the level is still within range at 1.7. So no need for Digibind unless he can sustain hi s bradycardia after dialysis. If bradycardia does not resolve or improve after dialysis, plan for pu tting a temporary intravenous pacemaker. 3.Acute renal failure with severe hyperkalemia, needs emergent dialysis and discussed the case with Nephrology and primary care physician, Dr. Hamilton. 4.Hyperkalemia with severe bradycardia. Plan as above. Thank you for the consult. TRESSA Voice ID: [id number] Report ID: [id number]
[2022-12-03] MEDS: NA CHLORIDE 0.9% 1,000 ML IV SCH (22:40)
[2022-12-03 23:17] LABS: Magnesium 2.1 mg/dL (1.6-2.4); Phosphorus 4.7 mg/dL (2.5-4.9); Potassium 5.8 mEq/L (3.5-5.1)
[2022-12-04] MEDS: NA CHLORIDE 0.9% 1,000 ML IV SCH ×4 (01:03→12:50)
[2022-12-04] MEDS: FLUDROCORTISONE 0.1 MG TAB PO SCH ×2 (01:04→08:42)
[2022-12-04] MEDS: INSULIN -REGULAR HUMAN 50 UNIT/0.5 ML ML SQ SCH ×5 (01:45→20:17)
[2022-12-04] MEDS: SODIUM ZIRCONIUM CYCLOSILICATE 10 GM/PKT PO SCH ×2 (01:47→08:42)
--- NOTE | 2022-12-04 02:02 | CON ---
Date of Consultation: 12/03/2022 Chief Complaint: Acute kidney injury, severe hyperkalemia. History Of Present Illness: The patient presented to the hospital when outpatient lab work was done by his primary care physician, Dr. Hamilton, and it showed severe elevation of BUN and creatinine level as well as hyperkalemia. Potassium was over 8. The patient was referred to the hospital for treatme nt of acute kidney injury and hyperkalemia. The patient is a 72-year-old man who had surgery done fo r abdominal hernia repair about 2 weeks ago. Subsequently, he was discharged home and was instructed to take Bactrim. Over last several days, the patient was not feeling well, and he denied fever, but he has decreased urine output, generalized weakness, and decreased appetite. The patient denied non steroidal antiinflammatory medication. He denies previous history of significant kidney issues. He denies kidney stone. Past Medical History: Diabetes mellitus, atrial fibrillation, gout, hyperuricemia, history of edema, hypertensive heart disease. The patient was taking digoxin for rate control. He has chronic atrial fibrillation. The patient has history of hypercholesterolemia and was taking Crestor. The patient has history of hypertension and was taking lisinopril, carvedilol. Nephrology consultation was reque sted for hyperkalemia. Lab work done in the hospital showed potassium 8.1, sodium 128, chloride 97, CO2 24, BUN 53, anion gap 15.1, creatinine 7.16, glucose 142, calcium 10.3. The patient was started on IV fluids. He received medical treatment for severe hyperkalemia including D50 and regular insuli n IV, albuterol nebulizers, Lokelma. He was started on normal saline fluids for volume depletion. U rine output has not improved. The patient had Gonzales catheter placed and it did not show significant residual volume. Renal ultrasound and bladder ultrasound were ordered and pending. The patient was medicated with IV calcium gluconate in view of severe hyperkalemia and bradycardia. Cardiology was c onsulted for severe bradycardia. The patient has chronic atrial fibrillation and Cardiology was eval uating the patient for pacemaker. He was transferred to ICU and had pacemaker done by Cardiology. N ephrology was consulted for emergent dialysis. The patient had non-tunneled dialysis catheter placed and dialysis was initiated for hyperkalemia. In response to medication, potassium level improved to 7 and subsequently to 6.4. The patient did not have significant metabolic acidosis. Bicarbonate wa s 25. CK level was checked to rule out rhabdomyolysis and it was within normal limits. Rhabdomyolys is was ruled out. Review of Systems: General: The patient denies fever, chills. Eyes: Denies vision changes. Ears, Nose, Mouth and Throat: Denies sore throat, earache. Respiratory: Denies PND, orthopnea, although he complains of generalized weakness. He denies syncop e. GI: He denies nausea, vomiting, although he had decreased p.o. intake. Denies melena, hematemesis. : Denies dysuria, hematuria. Denies incomplete voiding, although he had decreased urine output. Musculoskeletal: Complaining of generalized weakness. All other systems reviewed and all are negative. Past Medical History: Hypertension, hyperuricemia, gout, hyperlipidemia, diabetes mellitus, atrial f ibrillation, hypertension. Social History: Denies drug. He is a former smoker. Denies alcohol. Family History: No kidney disease. Physical Examination: General: The patient is awake, alert, oriented x3. Eyes: Anicteric sclerae. EOMI. Ears, Nose, Mouth, and Throat: Oral mucosa moist. No pallor. Neck: Supple. No bruits. Lungs: Diminished breath sounds at bases. Heart: S1, S2. Abdomen: Soft. Extremities: Slight edema. Impression And Plan: 1.Severe hyperkalemia, acute kidney injury, oliguric. The patient was medicated for severe hyperkal emia and received insulin regular IV with D50, calcium gluconate, albuterol nebulizer, IV fluids were started for acute kidney injury. The patient received 1 dose of Lasix in attempt to induce diuresis although he had oliguric urine output. Dialysis was initiated via temporary [facility]unneled [facility]. The patient was consulted by Cardiology for bradycardia and pacemaker. 2.Hypertension. Lisinopril was stopped due to hyperkalemia. 3.Acute kidney injury secondary to volume depletion, oliguric acute tubular necrosis as well as effe ct of Bactrim. Plan is to continue IV fluids and use Lasix as needed. Dialysis will be done to cont rol azotemia and to treat severe hyperkalemia. Plan is to re-evaluate potassium level after dialysis and make further recommendation. Lokelma was started is to treat severe hyperkalemia. Continue Jerson aly 10 g 3 times per day. LONG/OZZIE Voice ID: [id number] Report ID: [id number]
[2022-12-04] MEDS: ALBUTEROL 2.5 MG/3 ML NEB SOL NEB SCH ×8 (03:25→19:45)
[2022-12-04 05:01] LABS: Absolute Lymphocytes (CBC) 1.9 K/uL (0.7-4.9); Hematocrit 43.8 % (39.6-49.0); MCV 93.7 fL (80-100); MPV 9.6 fL (7.6-11.3); RBC Red Blood Cell Count 4.67 M/uL (4.33-5.43)
[2022-12-04 05:27] LABS: Magnesium 2.3 mg/dL (1.6-2.4)
[2022-12-04 05:28] LABS: Potassium 7.1 mEq/L (3.5-5.1)
[2022-12-04] MEDS ORDERED: INSULIN -REGULAR HUMAN 50 UNIT/0.5 ML ML IV ONE (06:19)
[2022-12-04] MEDS ORDERED: D50W 25 GM/50 ML SYRINGE IV ONE ×2 (06:23→08:30)
[2022-12-04] MEDS ORDERED: CALCIUM GLUC 10% INJ 4.65 MEQ in NA CHLORIDE 0.9% 100 ML IV ONE (06:30)
[2022-12-04] MEDS ORDERED: FUROSEMIDE 40 MG/4 ML VIAL IV ONE (06:31)
[2022-12-04] MEDS ORDERED: SODIUM ZIRCONIUM CYCLOSILICATE 10 GM/PKT PO ONE (06:32)
[2022-12-04] MEDS ORDERED: CALCIUM GLUCONATE 1 GM IVPB 1 GM/50 ML BAG IV ONE (07:30)
[2022-12-04 12:53] LABS: Absolute Lymphocytes (CBC) 1.2 K/uL (0.7-4.9); Hematocrit 43.9 % (39.6-49.0); Lymphocytes % 7.1 % (15.3-44.8); MCV 93.4 fL (80-100)
[2022-12-04 13:10] LABS: Magnesium 2.2 mg/dL (1.6-2.4); Potassium 4.4 mEq/L (3.5-5.1)
--- NOTE | 2022-12-04 15:05 | P.PN ---
Subjective Date of Service: 12/04/22 Subjective: Other (Received HD today.) Physical Examination - Vital Signs Temperature: 98 F Blood Pressure: 155/57 Pulse: 42 Respirations: 14 Pulse Ox (%): 100 - Physical Exam General: Other (chronically ill appearing) HEENT: Atraumatic, Normocephalic Neck: Supple, JVD not distended Respiratory: Other (symmetric chest expansion) Cardiovascular: No rubs, No murmurs Gastrointestinal: Soft and benign, No guarding Musculoskeletal: No clubbing Integumentary: No warmth Neurological: Normal tone Urinary: Other (no bladder distention) External genitalia: Deferred Rectal: Deferred - Studies Laboratory Data (last 24 hrs) 12/04/22 12:45: Sodium 131 L, Potassium 4.4 D, BUN 28 H, Creatinine 4.49 H, Glucose 195 H, Magnesium 2.2 12/04/22 12:45: WBC 16.50 H, Hgb 14.1, Hct 43.9, Plt Count 231 12/04/22 04:42: WBC 18.70 H, Hgb 14.3 D, Hct 43.8, Plt Count 220 12/04/22 04:42: Sodium 128 L, Potassium 7.1 H* D, BUN 43 H, Creatinine 6.51 H, Glucose 157 H, Magnesium 2.3 12/03/22 22:50: Sodium Cancelled, Potassium Cancelled, BUN Cancelled, Creatinine Cancelled, Glucose Cancelled, Phosphorus Cancelled 12/03/22 22:47: Phosphorus 4.7, Magnesium 2.1 12/03/22 22:47: Sodium 129 L, Potassium 5.8 H, BUN 41 H, Creatinine 5.55 H, Glucose 171 H 12/03/22 19:00: Sodium Cancelled, Potassium Cancelled, BUN Cancelled, Creatinine Cancelled, Glucose Cancelled 12/03/22 18:32: Sodium 130 L, Potassium 6.4 H*, BUN 59 H, Creatinine 7.35 H, Glucose 140 H 12/03/22 18:32: PT 14.5 H, INR 1.24 12/03/22 18:32: Sodium 128 L, Potassium 6.4 H*, BUN 59 H, Creatinine 7.47 H, Glucose 142 H, Uric Acid 7.8 H, Phosphorus 6.1 H, Magnesium 2.5 H, Total Bilirubin 0.5, AST 15, ALT 22, Alkaline Phosphatase 42 L 12/03/22 14:55: Sodium 129 L, Potassium 7.0 H* D, BUN 55 H, Creatinine 7.35 H, Glucose 169 H 12/03/22 14:55: Phosphorus 6.4 H 12/03/22 14:55: Magnesium 2.6 H Assessment And Plan - Plan # STEWART 2/2 prerenal state, ATN Bactrim also contributed to SCr rise Received HD today # Hyperkalemia HD as above # Bradycardia Has intermittent bradycardia as low as 20s bpm. EKG no p waves discernible. For transfer to [facility] for further cardiac intervention # Htn Monitor BP
--- NOTE | 2022-12-04 15:20 | PN ---
Date of Progress Note: 12/04/2022 Subjective: Seen by the bedside, still in idioventricular rhythm, but his potassium was still high 7 .1 this morning. Review of Systems: He does not have any chest pain, shortness of breath, orthopnea, cough, or dizziness. Maintaining bl ood pressure. All other systems reviewed are negative. Physical Examination: Vital Signs: Reviewed. Head and Neck: Pupils are equal, reactive to light. Intact eye movements. No JVD. No cervical lym phadenopathy. Neck is supple. Thyroid is not enlarged. Lungs: Clear to auscultation bilaterally. No rhonchi, wheezing, or crackles. No accessory muscle u se. Heart: Regular rate and rhythm. No extra sounds. Abdomen: Soft, nontender. Bowel sounds positive. No organomegaly. No masses or hernia. No rigidi ty or rebound. Extremities: No edema, clubbing, or cyanosis. Intact pulses. Skin: No rashes. Neurologic: Alert, awake, oriented x3. No acute focal deficits appreciated. Investigations: Potassium was 7.1, BUN 43, creatinine 6.5, and hemoglobin is 14.1. Assessment/recommendations: 1.Severe bradycardia. Patient has idioventricular rhythm. This is due to hyperkalemia. He is havi ng another session of dialysis today. Once potassium normalizes, sinus rhythm should be restored. W e will monitor. If he does not go back to sinus rhythm with acceptable rate, then we will consider p acemaker implantation, but at this point, likely his bradycardia is due to severe hyperkalemia and it should correct once the potassium is corrected. Also, patient was on digoxin. This was discontinue d, but no toxicity. We will monitor. Patient might remain bradycardic and sinus bradycardia after c orrecting the potassium due to the digoxin presence. 2.Acute renal failure requiring hemodialysis. 3.Hyperkalemia, severe. Chronic hemodialysis. We will monitor. SR/MODL Voice ID: [id number] Report ID: [id number]
--- NOTE | 2022-12-04 16:00 | P.PN ---
Subjective Date of Service: 12/04/22 Chief Complaint: WEAKNESS, LOW HR Subjective: Improving MR WALLACE CAME TO OFFICE YESTERDAY WE CALLED HIM IN STAT FOR K OF 6.0 FROM [facility]. PLAN IS TO ADMIT HIM HE HAS HIGH K AND ACUTE RENAL FAILURE. ON THE FLOOR HIS HR WAS NOTED TO BE 30 AND K WAS 8.1. WE DECIDED TO MOVE HIM TO ICU, START ALBUTEROL NEBULIZER, LOKELMA AND STAT DIALYSIS. I CALLED DR. MENDOZA FOR HD, DR TANG FOR QUITON CATHETER ND DR. WILKINSON FOR LOW HR. HE HAS EXTERNAL PACEMAKER AND AFTER STAT CATHETER HE HAD HD. HIS K CAME DOWN TO 7.1 AND AFTER ANOTHER HD TODAY IT IS DOWN TO 4.6. HIS HR IS UP TO 42. Review of Systems 10-point ROS is otherwise unremarkable General: Weakness Physical Examination - Vital Signs Temperature: 98 F Blood Pressure: 155/57 Pulse: 42 Respirations: 14 Pulse Ox (%): 100 - Physical Exam General: Oriented x3, Moderate distress, Obese HEENT: Atraumatic, PERRLA, EOMI Neck: Supple, JVD not distended Respiratory: Clear to auscultation bilaterally, Normal air movement Cardiovascular: Regular rate/rhythm, Normal S1 S2 Gastrointestinal: Normal bowel sounds, No tenderness Musculoskeletal: No tenderness Integumentary: No rashes Neurological: Normal speech, Normal tone, Normal affect Lymphatics: No axilla or inguinal lymphadenopathy - Studies Laboratory Data (last 24 hrs) 12/04/22 12:45: Sodium 131 L, Potassium 4.4 D, BUN 28 H, Creatinine 4.49 H, Glucose 195 H, Magnesium 2.2 12/04/22 12:45: WBC 16.50 H, Hgb 14.1, Hct 43.9, Plt Count 231 12/04/22 04:42: WBC 18.70 H, Hgb 14.3 D, Hct 43.8, Plt Count 220 12/04/22 04:42: Sodium 128 L, Potassium 7.1 H* D, BUN 43 H, Creatinine 6.51 H, Glucose 157 H, Magnesium 2.3 12/03/22 22:50: Sodium Cancelled, Potassium Cancelled, BUN Cancelled, Creatinine Cancelled, Glucose Cancelled, Phosphorus Cancelled 12/03/22 22:47: Phosphorus 4.7, Magnesium 2.1 12/03/22 22:47: Sodium 129 L, Potassium 5.8 H, BUN 41 H, Creatinine 5.55 H, Glucose 171 H 12/03/22 19:00: Sodium Cancelled, Potassium Cancelled, BUN Cancelled, Creatinine Cancelled, Glucose Cancelled 12/03/22 18:32: Sodium 130 L, Potassium 6.4 H*, BUN 59 H, Creatinine 7.35 H, Glucose 140 H 12/03/22 18:32: PT 14.5 H, INR 1.24 12/03/22 18:32: Sodium 128 L, Potassium 6.4 H*, BUN 59 H, Creatinine 7.47 H, Glucose 142 H, Uric Acid 7.8 H, Phosphorus 6.1 H, Magnesium 2.5 H, Total Bilirubin 0.5, AST 15, ALT 22, Alkaline Phosphatase 42 L 12/03/22 14:55: Phosphorus 6.4 H Medications List Reviewed: Yes Assessment And Plan - Current Problems (Diagnosis) (1) Acute renal failure Current Visit: Yes Status: Acute Plan: THIS CAN BE FROM BACTRIM HE IS ALREADY ON MEDS THAT CAN COMPOMISE RENAL FUNCTION AND AT THE SAME TIME HE DID NOT EAT OR DRINK WELL FOR A FEW DAYS AFTER UMBILLICAL HERNIA SURGERY. HD WILL BE SHORT TERM MOST LIKLEY. HE IS STABLE . (2) Hyperkalemia Current Visit: Yes Status: Acute Plan: K IS DOWN FROM 8.1 TO 4.6 NOW. THIS ALL POSSIBLE FROM MEDICATION LIKE SULFA. HE SHOULD AVOID SULFA IN FUTURE. (3) History of atrial fibrillation Current Visit: Yes Status: Chronic Plan: DIGOXIN LEVEL IS GOOD. HE GOES TO DR. LLANES. HE DOES NOT COME HERE. HE HAS BRADYCARDIA FROM HIGH K FOR NOW. (4) HTN (hypertension) Current Visit: Yes Status: Chronic
[2022-12-04 16:03] LABS: Specific Gravity 1.007 (1.005-1.030); Urine Bacteria <20 /HPF (<20); Urine Bilirubin NEGATIVE (Negative); Urine Blood 3+ (Negative); Urine Clarity Extremely Turbid (Clear); Urine Color Colorless (Yellow); Urine Glucose 1+ (Negative); Urine Mucus 2+ /HPF (None Seen); Urine Protein NEGATIVE (Negative); Urine RBC >50 /HPF (None Seen); Urine Urobilinogen Normal (Normal); Urine WBC Clump Occasional /HPF (None Seen)
--- NOTE | 2022-12-04 16:23 | RAD REPORT ---
EXAM DESCRIPTION: US - Urinary Bladder - 12/04/2022 12:05 am CLINICAL HISTORY: Hyperkalemia. COMPARISON: None. TECHNIQUE: Real-time ultrasound of the kidneys and urinary bladder with Doppler flow imaging was obt ained. FINDINGS: Right kidney measures 13.2 cm in length. Inferior pole simple cyst measures 3.2 cm (no fol low-up imaging recommended). No hydronephrosis or sonographic evidence of renal calculi. Slightly i ncreased renal parenchymal echogenicity. Unremarkable Doppler evaluation. Left kidney measures 11.8 cm in length. No solid or cystic lesion identified. No hydronephrosis. Possible few small nonobstructive calculi. Slightly increased renal parenchymal echogenicity. Unremar kable Doppler evaluation. The urinary bladder is decompressed by a balloon catheter. Normal caliber abdominal aorta. Unremarkable appearance of the visualized IVC. IMPRESSION: 1. No hydronephrosis. 2. Possible small nonobstructive left renal calculi. 3. Slightly increased renal parenchymal echogenicity, which can be seen with chronic medical renal disease. Electronically signed by: Grace Thompson MD 12/04/2022 12:47 AM CDT Due to temporary technical issues with the PACS/Fluency reporting system, reports are being signed by the in house radiologists without review as a courtesy to insure prompt reporting. The interpreting radiologist is fully responsible for the content of the report.
--- NOTE | 2022-12-04 16:25 | RAD REPORT ---
EXAM DESCRIPTION: US - Renal Ultrasound-Complete - 12/04/2022 12:05 am CLINICAL HISTORY: Hyperkalemia. COMPARISON: None. TECHNIQUE: Real-time ultrasound of the kidneys and urinary bladder with Doppler flow imaging was obt ained. FINDINGS: Right kidney measures 13.2 cm in length. Inferior pole simple cyst measures 3.2 cm (no fol low-up imaging recommended). No hydronephrosis or sonographic evidence of renal calculi. Slightly i ncreased renal parenchymal echogenicity. Unremarkable Doppler evaluation. Left kidney measures 11.8 cm in length. No solid or cystic lesion identified. No hydronephrosis. Possible few small nonobstructive calculi. Slightly increased renal parenchymal echogenicity. Unremar kable Doppler evaluation. The urinary bladder is decompressed by a balloon catheter. Normal caliber abdominal aorta. Unremarkable appearance of the visualized IVC. IMPRESSION: 1. No hydronephrosis. 2. Possible small nonobstructive left renal calculi. 3. Slightly increased renal parenchymal echogenicity, which can be seen with chronic medical renal disease. Electronically signed by: Grace Thompson MD 12/04/2022 12:47 AM CDT Due to temporary technical issues with the PACS/Fluency reporting system, reports are being signed by the in house radiologists without review as a courtesy to insure prompt reporting. The interpreting radiologist is fully responsible for the content of the report.
--- NOTE | 2022-12-04 17:20 | PN ---
Date of Progress Note: 12/04/2022 Subjective: Patient is awake, alert, feels better. Heart rate appears to be paced at 52. His potas sium went down to 5.8, back up to 7.1 this morning. Patient was just dialyzed again. Objective: Vital Signs: Stable. He is afebrile. Extremities: His catheter is in good place and right groin, is without hematoma or pain or tendernes s. Assessment: Status post Leo catheter placement for hyperkalemia. Recommendations: Continue management per the medical and renal team. Re-consult Surgery p.r.n. /MODL Voice ID: [id number] Report ID: [id number]
[2022-12-04 19:31] LABS: Albumin 3.8 g/dL (3.4-5.0); Bilirubin Total 0.3 mg/dL (0.2-1.0); Potassium 5.1 mEq/L (3.5-5.1); Protein, Total 7.3 g/dL (6.4-8.2)
[2022-12-04] MEDS ORDERED: INSULN SQ SCH (21:00)
[2022-12-04] MEDS ORDERED: INSULIN GLARGINE YFGN 100 UNIT/ML SQ SCH (21:00)
[2022-12-04] MEDS ORDERED: INSULIN GLARGINE 100 UNIT/ML SQ SCH (21:00)
[2022-12-04] MEDS ORDERED: ROSUVASTATIN 10 MG TAB PO SCH (21:00)
[2022-12-04 21:30] VITALS: O2SAT 97
--- NOTE | 2022-12-05 09:14 | P.DS ---
Admission Date: 12/04/22 Discharge Date: 12/05/22 Disposition: [facility]SF[facility] TO [facility] Reason for Admission: WEAKNESS, LOW HR - Problems (1) Acute renal failure Status: Acute (2) Hyperkalemia Status: Acute (3) History of atrial fibrillation Status: Chronic (4) HTN (hypertension) Status: Chronic Hospital Course: JEAN CLAUDE HAD ACUTE RENAL FAILURE SP HERNIA SURGERY POSSIBLY FROM SULFA MEDICATION AND DEHYDRATION. HE HAS SEVERE BRADYCARDIA FROM HYPERKALEMIA. HE NEEDED URGENT HEMODIALYSIS. HIS K CAME DOWN BUT HE CONTINUED TO HAVE BRADYCARDIA. HE TRANSFERRED TO [facility] PER DR. WILKINSON'S RECOMMENDATION FOR PACEMAKER PLACEMENT. AND PATIENT HAVE BEEN INFORMED ABOUT CHANGES ON DAILY BASIS. Vital Signs/Physical Exam: Temp Pulse Resp BP Pulse Ox 97.9 F 41 L 21 H 152/56 H 98 12/04/22 20:00 12/04/22 22:00 12/04/22 22:00 12/04/22 22:00 12/04/22 22:00 Laboratory Data at Discharge: WBC 16.50 thou/uL (4.3-10.9) H 12/04/22 12:45 Hgb 14.1 g/dL (13.6-17.9) 12/04/22 12:45 Hct 43.9 % (39.6-49.0) 12/04/22 12:45 Plt Count 231 thou/uL (152-406) 12/04/22 12:45 PT 14.5 SECONDS (9.2-12.8) H 12/03/22 18:32 INR 1.24 12/03/22 18:32 APTT 56.6 SECONDS (24.3-36.9) H 12/03/22 13:23 Sodium 129 mEq/L (136-145) L 12/04/22 18:50 Potassium 5.1 mEq/L (3.5-5.1) D 12/04/22 18:50 BUN 36 mg/dL (7-18) H 12/04/22 18:50 Creatinine 5.48 mg/dL (0.70-1.30) H 12/04/22 18:50 Glucose 255 mg/dL (74-106) H 12/04/22 18:50 Uric Acid 7.8 mg/dL (3.5-7.2) H 12/03/22 18:32 Phosphorus Cancelled 12/03/22 22:50 Magnesium 2.2 mg/dL (1.6-2.4) 12/04/22 12:45 Total Bilirubin 0.3 mg/dL (0.2-1.0) 12/04/22 18:50 AST 13 U/L (15-37) L 12/04/22 18:50 ALT 23 U/L (16-61) 12/04/22 18:50 Alkaline Phosphatase 46 U/L (45-117) 12/04/22 18:50 Home Medications: Dabigatran Etexilate Mesylate [Pradaxa*] 150 mg PO DAILY 09/07/17 Digoxin [Lanoxin] 250 mg PO DAILY 09/07/17 Empagliflozin/Metformin HCl [Synjardy 12.5-1,000 mg Tablet] 12.5 units PO BID 09/07/17 Furosemide 40 mg PO DAILY 09/07/17 Potassium Chloride [Klor-Con 10] 10 meq PO DAILY 09/07/17 Rosuvastatin [Crestor*] 20 mg PO BEDTIME 09/07/17 allopurinoL [Zyloprim*] 300 mg PO DAILY 09/07/17 lisinopriL [Lisinopril] 40 mg PO DAILY 09/07/17 Carvedilol [Coreg] 1 tab PO BID 11/25/22 Insulin Glargine-Yfgn [Semglee (Yfgn) Pen] 50 unit SQ BID 12/03/22 Followup: Rom Hamilton MD [Primary Care Provider] -
--- NOTE | 2022-12-06 13:15 | EKG ---
Test Date: 2022-12-04 Test Time: 15:25:27 [employer]unch [employer] Operator Helper: YVON MEASUREMENT RESULTS: Intervals: Rate: 36 NM: QRSD: 130 QT: 444 QTc: 343 [place]: P: NM: QRS: 26 T: 27 INTERPRETIVE STATEMENTS: Idioventricular rhythm Nonspecific intraventricular block Abnormal ECG Compared to ECG 12/03/2022 13:10:44 Left-axis deviation no longer present Left bundle-branch block no longer present Electronically Signed On 12-06-22 13:12:24 CDT by Luis Haque
[2022-12-08 07:21] VITALS: BP 155/57; TEMP 98
[2022-12-08 11:47] LABS: Vitamin D 1,25-Dihydroxy Total 12 pg/mL (18-72); Vitamin D,1,25-OH2, D2 <8 pg/mL
== END 2022-12-04 22:40 | disposition short-term general hospital (02) | DRG 640 ==
LOC: 2ND 12:09 → 3RD-ICU 14:00 → OBSVTOIN 12-04 10:10
PROVIDERS: ADMIT Internal Medicine; ATTEND Internal Medicine
PROC: 05HY33Z Insertion of Infusion Device into Upper Vein, Percutaneous Approach (ICD-10-PCS; 2022-12-03)
PROC: 5A1D70Z Performance of Urinary Filtration, Intermittent, Less than 6 Hours Per Day (ICD-10-PCS; principal; 2022-12-04)
DX: E87.5 Hyperkalemia (principal); N17.0 Acute kidney failure with tubular necrosis; I48.20 Chronic atrial fibrillation, unspecified; I10 Essential (primary) hypertension; M10.9 Gout, unspecified; E78.00 Pure hypercholesterolemia, unspecified; E11.9 Type 2 diabetes mellitus without complications; R00.1 Bradycardia, unspecified; Z79.4 Long term (current) use of insulin; Z95.0 Presence of cardiac pacemaker; Z88.1 Allergy status to other antibiotic agents; Z90.49 Acquired absence of other specified parts of digestive tract; Z79.02 Long term (current) use of antithrombotics/antiplatelets; Z79.899 Other long term (current) drug therapy; Z87.891 Personal history of nicotine dependence
CPT/HCPCS: 36415; 71045; 71046; 74018; 76770; 76857; 80048; 80053; 80076; 80162; 81001; 82140; 82550; 82607; 82652; 82805; 82947; 83036; 83735; 84100; 84443; 84484; 84550; 85025; 85610; 85730; 86706; 87040; 87086; 87088; 87340; 90935; 93005; 94640; A4216; J0612; J1265; J1644; J1815; J1940; J2001; J7030; J7613

== ENCOUNTER 2022-12-14 09:17 | Emergency (ER) | payer OTHER ==
--- OUTSIDE RECORDS SUMMARY | 2022-12-14 09:35 | XMS REPORT | Continuity of Care Document ---
:1950 Author Organization [facility] t Address [address] [place] [address] [address] [place] [address] Care Team Providers Name Role Phone Nisha Meeks Attending Clinician Unavailable Efra Lindsey Attending Clinician Physician, Non Associated Attending Clinician Unavailable Efra Lindsey Attending Clinician Kishan Kulkarni Admitting Clinician Unavailable Efra Lindsey Admitting Clinician Payers Payer Name Policy Type Policy Number Effective Date Expiration Date S ource Problems Condition Condition Condition Status Onset Resolution Last Treating Co mments Source Name Details Category Date Date Treatment Clinician Date BEDDED BEDDED Diagnosis Active 2016-052017-03-05 Nc moria OUTPATIENT OUTPATIENT - 09:29:00 l /US /US 00:00: Main GUIDANCE GUIDANCE 00 NEEDLE MIGUEL ANGEL NEEDLE MIGUEL ANGEL Active 03/03/2017 [facility] M24.819 - M24.819 - Diagnosis Active 2017-01-29 Memoria OT OT 12-21 17:46:00 l SPECIFIC SPECIFIC 00:01: Miller n JOINT JOINT 00 DERANGEMEN DERMALACHI T T Active 12/21/2016 TAYLOR Xiong Diabetes Diabetes Problem Active 2017-07-08 Memoria mellitus mellitus - 05:02:35 l (disorder) (disorder) 00:00: Bowen rmann Active 00 05/10/2010 Problem 07/08/2017 HgbA1c dated 05-27-17 7.8, fbs 90-95
insulin dependent x 1 year. fasting BS 80-110. Hgb A1C 7.9. monitored by pcp [facility] Atrial Atrial Problem Active 2017-07-08 Sukhwinder lina fibrillati fibrillati 05-10 05:02:35 l on on 00:00: Main (disorder) (disorder) 00 Active 05/10/1999 Problem 07/08/2017 sees cardio every [address] [facility] Hypertensi Hypertens Problem Resolve 2017-03-08 Memoria ve kevin d 01:33:08 l disorder, disorder, Herm yady systemic systemic arterial arterial (disorder) (disorder) Resolved Problem 03/08/2017 [facility] Malignant Malignant Problem Resolve 2017-03-08 Memoria neoplasm neoplasm d 01:33:08 l of skin of of skin of [facility] upper limb upper limb (disorder) (disorder) Resolved Problem 03/08/2017 [facility] Gout Gout Problem Active 2017-07-08 Memor ia (disorder) (disorder) 05:02:35 l Active [facility] Problem 07/08/2017 [facility] Loose body Loose Problem Active 2017-07-08 M emoria in body in 05:02:35 l shoulder shoulder Miller n joint joint (disorder) (disorder) Active Problem 07/08/2017 [facility] Shoulder Shoulder Problem Active 2017-07-08 Memoria pain pain 05:02:35 l (finding) (finding) Herm yady Active Problem 07/08/2017 [facility] Snoring Snoring Problem Active 2017-07-08 Me moria (finding) (finding) 05:02:35 l Active [facility] Problem 07/08/2017 [facility] History of Past Illness Condition Condition Condition Status Onset Resolution Last Treating Co mments Source Name Details Category Date Date Treatment Clinician Date Impingemen Impingeme Problem 2017-2017-07-08 2017-07-08 Memoria t syndrome nt 2-27 05:02:35 05:02:35 l of right syndrome 06:00: [facility] shoulder of right 00 shoulder 07/06/2017 8 [facility] Allergies, Adverse Reactions, Alerts Allergy Allergy Status Severity Reaction(s) Onset Inactive Treating Comm ents Source Name Type Date Date Clinician sulfamet DA Active [facility] hoxazole FAILURE 12-05 Clear 00:00: Aguilar 00 [facility] trimetho DA Active [facility] prim FAILURE 12-05 Clear 00:00: Aguilar 00 [facility] Social History Smoking Status Start Date Stop Date Source Social History [facility] Medications Ordered Filled Start Stop Current Ordering Indication Dosage Frequency Signature Comments Components Source Medication Medication Date Date Medication? Clinician (SIG) Name Name Lactated No IV, start Sukhwinder lina Ringers 07-06 date l Injection 20:44: 07/06/17 Herm yady 14:44:00 BREEDER SERVICE TECHNICIAN, stop date 07/06/17 14:44:00 BREEDER SERVICE TECHNICIAN LR 1,000 mL No 1,000 mL, M emoria 07-06 IV, 75 l 20:33: mL/hr, 00 start date 07/06/17 14:33:00 BREEDER SERVICE TECHNICIAN Saline Lock No 10 mL, Sukhwinder lina Flush 07-06 Soln, IV l 20:33: Push, As Indicated PRN for flush, first dose 07/06/17 14:33:00 BREEDER SERVICE TECHNICIAN Morphine No 2 mg = 0.2 Mem oria 2-27 mL, l 20:33: Injection, IV Push, q5min PRN for pain, first dose 07/06/17 14:33:00 BREEDER SERVICE TECHNICIAN Dilaudid No 0.5 mg = Memor ia 27 0.5 mL, l 20:33: Injection, IV Push, q10min PRN for pain severe (7-10), first dose 07/06/17 14:33:00 BREEDER SERVICE TECHNICIAN Ketorolac No Notes: Memori a 07-06 "Restricte l 20:33: d: No more [facility] 00 than 5 days of therapy from any route of administra tion." Bupivacaine No 300 mL, Mem oria 0.25% 300 07-06 Nerve l mL pump 300 20:33: Block, 5 He rmann mL 00 mL/hr, start date 07/06/17 14:33:00 BREEDER SERVICE TECHNICIAN Diphenhydra 2018-0 No 25 mg = Mem oria mine 2-27 0.5 mL, l 20:33: Injection, Main 00 IV Push, Once PRN for itching, first dose 07/06/17 14:33:00 BREEDER SERVICE TECHNICIAN Promethazin 2018-0 No 12.5 mg = M emoria e 2-27 0.5 mL, l 20:33: Injection, [facility] 00 IM, Once PRN for vomiting, first dose 07/06/17 14:33:00 BREEDER SERVICE TECHNICIAN Ondansetron 2017-0 No 8 mg = 1 Me moria 2-27 tabs, l 20:33: Tab-Dis, [facility] 00 Oral, Once PRN for nausea, first dose 07/06/17 14:33:00 BREEDER SERVICE TECHNICIAN Levalbutero 2017-0 No 0.63 mg = M emoria l 0.21 2-27 3 mL, l MG/ML 20:33: Soln, NEB, Miller n Inhalant 00 Once PRN Solution for [Xopenex] wheezing, first dose 07/06/17 14:33:00 BREEDER SERVICE TECHNICIAN ondansetron 2017-0 No 4 mg = 2 Me moria 2-27 mL, l 19:56: Injection, Main 00 IV, Once, first dose 07/06/17 13:56:00 BREEDER SERVICE TECHNICIAN, stop date 07/06/17 13:56:00 BREEDER SERVICE TECHNICIAN fentaNYL 2018-0 No 25 mcg = Memor ia 2-27 0.5 mL, l 19:53: Injection, Main IV, Once, first dose 07/06/17 13:53:00 BREEDER SERVICE TECHNICIAN, stop date 07/06/17 13:53:00 BREEDER SERVICE TECHNICIAN Dextrose 2018-0 No 6.25 gm = Sukhwinder lina 50% in 2-27 12.5 mL, l Water 19:05: Injection, Miller n 00 IV, Once, first dose 07/06/17 13:05:00 BREEDER SERVICE TECHNICIAN, stop date 07/06/17 13:05:00 BREEDER SERVICE TECHNICIAN ceFAZolin 2017-0 No 2 gm, Memoria 2-27 Soln-IV, l 17:56: IV Main 00 Piggyback, Once, first dose 07/06/17 11:56:00 BREEDER SERVICE TECHNICIAN, stop date 07/06/17 11:56:00 BREEDER SERVICE TECHNICIAN dexamethaso 2018-0 No 4 mg = 1 Me moria ne 2-27 mL, l 17:52: Injection, IV, Once, first dose 07/06/17 11:52:00 BREEDER SERVICE TECHNICIAN, stop date 07/06/17 11:52:00 BREEDER SERVICE TECHNICIAN Misc 2018-0 No 1,000 mL, Memoria Medication 2-27 Soln-IV, l 17:52: IV, Once, first dose 07/06/17 11:52:00 BREEDER SERVICE TECHNICIAN, stop date 07/06/17 11:52:00 BREEDER SERVICE TECHNICIAN fentaNYL 2018-0 No 25 mcg = Memor ia 2-27 0.5 mL, l 17:46: Injection, IV, Once, first dose 07/06/17 11:46:00 BREEDER SERVICE TECHNICIAN, stop date 07/06/17 11:46:00 BREEDER SERVICE TECHNICIAN lidocaine 2018-0 No 3 mL, Memoria 2-27 Injection, l 17:46: IV, Once, first dose 07/06/17 11:46:00 BREEDER SERVICE TECHNICIAN, stop date 07/06/17 11:46:00 BREEDER SERVICE TECHNICIAN propofol 2018-0 No 150 mg = Memor ia 2-27 15 mL, l 17:46: Emulsion, IV, Once, first dose 07/06/17 11:46:00 BREEDER SERVICE TECHNICIAN, stop date 07/06/17 11:46:00 BREEDER SERVICE TECHNICIAN midazolam 2018-0 No 1 mg = 1 Sukhwinder lina 2-27 mL, l 17:40: Injection, [facility] 00 IV, Once, first dose 07/06/17 11:40:00 BREEDER SERVICE TECHNICIAN, stop date 07/06/17 11:40:00 BREEDER SERVICE TECHNICIAN midazolam 2018-0 No 1 mg = 1 Sukhwinder lina 2-27 mL, l 16:36: Injection, Main 00 IV, Once, first dose 07/06/17 10:36:00 BREEDER SERVICE TECHNICIAN, stop date 07/06/17 10:36:00 BREEDER SERVICE TECHNICIAN Cefazolin 2018-0 No 2 gm, Memoria 2-27 Soln-IV, l 15:00: IV [facility] 00 Piggyback, Once, infuse over 30 minutes, first dose 07/06/17 9:00:00 BREEDER SERVICE TECHNICIAN, stop date 07/06/17 9:00:00 BREEDER SERVICE TECHNICIAN, patient weight 50-120 kg, Prophylaxi s LR 1,000 mL No 1,000 mL, M emoria 2-27 IV, 30 l 14:12: mL/hr, [facility] start date 07/06/17 8:12:00 BREEDER SERVICE TECHNICIAN Lidocaine Yes 0.2 mL, Memor ia 2% 0.2 mL 07-06 Injection, l IV Start 14:12: Subcutaneo Her thurston [[place]] 00 us, Once PRN for other (see comment), first dose 07/06/17 8:12:00 BREEDER SERVICE TECHNICIAN icosapent Yes 2 gm = 2 Sukhwinder lina ethyl 1000 2- caps, l MG Oral 21:48: Oral, BID, Herm yady Capsule 00 0 [Vascepa] Refill(s), supplement Rosuvastati Yes 20 mg = 1 M emoria n calcium 2-26 tabs, l 20 MG Oral 21:46: Oral, qHS, H ermann Tablet 00 0 [Crestor] Refill(s), cholestero l Lantus Yes 70 units, Memori a - Subcutaneo l 21:43: us, BID, Main 00 pt inst take 1/2 dose am of sx, 0 Refill(s), diabetes canaglifloz No 100 mg = 1 Memoria in 100 MG 2- tabs, l Oral Tablet 21:41: Oral, Mary Alice nn [Invokana] 00 Daily, pt ins to not take the am of sx, 0 Refill(s), diabetes Misc No [facility] 800 mL, Memor ia Medication 08-14 Pronk Soln-IV, l 15:18: IV, Once, Main 00 first dose 08/14/14 10:18:00 CDT, stop date 08/14/14 10:18:00 CDT diphenhydrA No [facility] 25 mg = Memoria MINE 08-14 Pronk 0.5 mL, l 15:09: Injection, Main 00 IV Push, Once PRN for itching, first dose 08/14/14 10:09:00 CDT Demerol HCl No [facility] 12.5 mg = Memoria 08-14 Pronk 0.25 mL, l 15:09: Injection, [facility] 00 IV Push, Once PRN for shivers, first dose 08/14/14 10:09:00 CDT Dilaudid No [facility] 0.5 mg = Memoria 4-07 Pronk 0.25 mL, l 15:09: Injection, [facility] 00 IV Push, q10min PRN for pain severe (7-10), first dose 08/14/14 10:09:00 CDT morphine No [facility] 2 mg = 0.2 Memoria 4-07 Pronk mL, l 15:09: Injection, [facility] 00 IV Push, q5min PRN for Pain Moderate (4-6), first dose 08/14/14 10:09:00 CDT ondansetron No Baptist 8 mg = 1 Memoria 4-07 Pronk tabs, l 15:09: Tab-Dis, [facility] 00 Oral, Once PRN for nausea/vom iting, first dose 08/14/14 10:09:00 CDT Xopenex No [facility] 0.63 mg = Memoria 0.63 mg/3 4-07 Pronk 3 mL, l mL 15:09: Soln, NEB, [facility] inhalation 00 Once PRN solution for wheezing, first dose 08/14/14 10:09:00 CDT LR 1,000 mL No [facility] 1,000 mL, Memoria 4-07 Pronk IV, 75 l 15:09: mL/hr, [facility] 00 start date 08/14/14 10:09:00 CDT Saline Lock No [facility] 10 mL, Memoria Flush 4-07 Pronk Soln, IV l 15:09: Push, As [facility] 00 Indicated PRN for flush, first dose 08/14/14 10:09:00 CDT ondansetron No [facility] 4 mg = 2 Memoria 4-07 Pronk mL, l 14:33: Injection, Main 00 IV, Once, first dose 08/14/14 9:33:00 CDT, stop date 08/14/14 9:33:00 CDT ketorolac No Baptist 30 mg = 1 Memoria 4-07 Pronk mL, l 14:33: Injection, Main 00 IV, Once, first dose 08/14/14 9:33:00 CDT, stop date 08/14/14 9:33:00 CDT acetaminoph No [facility] 1,000 mg, Memoria en 4-07 Pronk Soln-IV, l 13:42: IV, Once, [facility] 00 first dose 08/14/14 8:42:00 CDT, stop date 08/14/14 8:42:00 CDT fentaNYL No [facility] 25 mcg = Memoria 4-07 Pronk 0.5 mL, l 13:15: Injection, Main 00 IV, Once, first dose 08/14/14 8:15:00 CDT, stop date 08/14/14 8:15:00 CDT midazolam No [facility] 0.5 mg = Memoria 4-07 Pronk 0.5 mL, l 13:15: Injection, Main 00 IV, Once, first dose 08/14/14 8:15:00 CDT, stop date 08/14/14 8:15:00 CDT ceFAZolin No [facility] 2 gm, Me moria 4-07 Pronk Soln-IV, l 13:15: IV Main 00 Piggyback, Once, first dose 08/14/14 8:15:00 CDT, stop date 08/14/14 8:15:00 CDT dexamethaso No [facility] 4 mg = 1 Memoria ne 4-07 Pronk mL, l 13:07: Injection, [facility] 00 IV, Once, first dose 08/14/14 8:07:00 CDT, stop date 08/14/14 8:07:00 CDT propofol No [facility] 60 mg = 6 Memoria 4-07 Pronk mL, l 13:06: Emulsion, [facility] 00 IV, Once, first dose 08/14/14 8:06:00 CDT, stop date 08/14/14 8:06:00 CDT propofol No Baptist 140 mg = Memoria 4-07 Pronk 14 mL, l 12:55: Emulsion, [facility] 00 IV, Once, first dose 08/14/14 7:55:00 CDT, stop date 08/14/14 7:55:00 CDT lidocaine No Baptist 3 mL, Me moria 4-07 Pronk Injection, l 12:54: IV, Once, Main 00 first dose 08/14/14 7:54:00 CDT, stop date 08/14/14 7:54:00 CDT fentaNYL No [facility] 50 mcg = 1 Memoria - Pronk mL, l 11:54: Injection, Main 00 IV, Once, first dose 08/14/14 6:54:00 CDT, stop date 08/14/14 6:54:00 CDT midazolam No Baptist 1 mg = 1 Memoria 08-14 Pronk mL, l 11:54: Injection, [facility] 00 IV, Once, first dose 08/14/14 6:54:00 CDT, stop date 08/14/14 6:54:00 CDT ceFAZolin No Efra 2 gm, Sukhwinder lina 08-14s Soln-IV, l 11:00: IV [facility] 00 Piggyback, Once, infuse over 30 minutes, first dose 08/14/14 6:00:00 CDT, stop date 08/14/14 6:00:00 CDT Lidocaine No Efra 0.2 mL, Me moria 2% 0.2 mL 08-14 Injection, l IV Start 10:58: Subcutaneo [facility] [[facility]] 00 us, Once PRN for other (see comment), first dose 08/14/14 5:58:00 CDT LR 1,000 mL No Efra 1,000 mL, Memoria 08-14s IV, 30 l 10:58: mL/hr, Main 00 start date 08/14/14 5:58:00 CDT Ibuprofen No See Memoria 200 MG Oral 3-26 Instructio l Tablet 21:34: ns, 4 tabs Mary Alice nn 00 Oral BID- instructed to hold 5 days prior to sx, 0 Refill(s), pain allopurinol Yes 300 mg = 1 Memoria 300 mg oral 3-26 tabs, l tablet 21:34: Oral, Main 00 Daily, 0 Refill(s), gout canaglifloz No 300 mg = 1 Memoria in 300 MG 3-26 tabs, l Oral Tablet 21:34: Oral, qPM, Main [Invokana] 00 0 Refill(s), DM Insulin No See Memoria Glargine -26 Instructio l 100 UNT/ML 21:34: ns, 40 Mary Alice nn Injectable 00 units Solution Subcutaneo [Lantus] us QAM- take 1/2 dose AM of procedure, 0 Refill(s), DM Prinivil 40 Yes 40 mg = 1 M emoria mg oral 3-26 tabs, l tablet 21:34: Oral, [facility] 00 Daily, hold AM of procedure, 0 Refill(s), heart ibuprofen Yes See Memoria 200 mg oral 3-26 Instructio l tablet 21:34: ns, 4 tabs Mary Alice nn 00 Oral BID- instructed to hold 5 days prior to sx, 0 Refill(s), pain4 tabs Oral BID- instructed to hold 5 days prior to sx allopurinol Yes 300 mg = 1 Memoria 300 mg oral 3-26 tabs, l tablet 21:34: Oral, [facility] 00 Daily, 0 Refill(s), gout Invokana Yes 300 mg = 1 Mem oria 300 mg oral 3-26 tabs, l tablet 21:34: Oral, qPM, Mary Alice nn 00 0 Refill(s), DM Lantus 100 Yes See Memoria units/mL - Instructio l subcutaneou 21:34: ns, 40 Herm yady s solution 00 units Subcutaneo us QAM- take 1/2 dose AM of procedure, 0 Refill(s), DM40 units Subcutaneo us QAM- take 1/2 dose AM of procedure Prinivil 40 Yes 40 mg = 1 M emoria mg oral 3-26 tabs, l tablet 21:34: Oral, [facility] 00 Daily, hold AM of procedure, 0 Refill(s), hearthold AM of procedure dabigatran Yes 150 mg = 1 M emoria etexilate 3-26 caps, l 150 MG Oral 21:33: Oral, BID, Main Capsule 00 # 60 caps, [Pradaxa] 0 Refill(s), blood thinner Digoxin Yes 250 mcg = Memor ia 0.25 MG 3-26 1 tabs, l Oral Tablet 21:33: Oral, Mary Alice nn 00 Daily, take AM of procedure, 0 Refill(s), AFIB carvedilol Yes 25 mg = 1 Me moria 25 MG Oral 3-26 tabs, l Tablet 21:33: Oral, BID, Mary Alice nn [Coreg] 00 0 Refill(s), AFIB Glyburide No 1 tabs, Memor ia 2.5 MG / 3-26 Oral, BID, l Metformin 21:33: hold AM of He rmann hydrochlori 00 procedure, de 500 MG 0 Oral Tablet Refill(s), DM Potassium Yes 10 mEq = 1 Me moria Chloride 10 3-26 tabs, l MEQ 21:33: Oral, [facility] Extended 00 Daily, 0 Release Refill(s), Tablet replacemen [K-Tab] t furosemide Yes 40 mg = 1 Me moria 40 mg oral 3-26 tabs, l tablet 21:33: Oral, [facility] 00 Daily, 0 Refill(s), heart Pradaxa 150 Yes 150 mg = 1 Memoria mg oral 3-26 caps, l capsule 21:33: Oral, BID, Herm yady 00 instructed to get stop date from cardio, # 60 caps, 0 Refill(s), blood thinnerins tructed to get stop date from cardio digoxin 250 Yes 250 mcg = M emoria mcg (0.25 3-26 1 tabs, l mg) oral 21:33: Oral, Main tablet 00 Daily, take AM of procedure, 0 Refill(s), AFIBtake AM of procedure Coreg 25 mg Yes 25 mg = 1 M emoria oral tablet 3-26 tabs, l 21:33: Oral, BID, [facility] 00 0 Refill(s), AFIB glyBURIDE-m Yes 1 tabs, Mem oria etformin 3-26 Oral, BID, l 2.5 mg-500 21:33: hold AM of H ermann mg oral 00 procedure, tablet 0 Refill(s), DMhold AM of procedure K-Tab 10 Yes 10 mEq = 1 Mem oria mEq oral 3-26 tabs, l tablet, 21:33: Oral, Main extended 00 Daily, 0 release Refill(s), replacemen t furosemide Yes 40 mg = 1 Me moria 40 mg oral 3-26 tabs, l tablet 21:33: Oral, [facility] 00 Daily, 0 Refill(s), heart Vital Signs Vital Name Observation Time Observation Value Comments Source Respitory Rate 2017-07-06 22:20:00 Memori al [facility] Respitory Rate 2017-07-06 21:10:00 Memori al Main Systolic (mm Hg) 2017-07-06 21:10:00 Sukhwinder rial Main Diastolic (mm Hg) 2017-07-06 21:10:00 Mem orial [facility] Heart Rate 2017-07-06 21:10:00 [facility] Heart Rate 2017-07-06 21:00:00 [facility] Respitory Rate 2017-07-06 21:00:00 Memori al Main Systolic (mm Hg) 2017-07-06 21:00:00 Sukhwinder rial [facility] Diastolic (mm Hg) 2017-07-06 21:00:00 Mem orial [facility] Heart Rate 2017-07-06 20:50:00 [facility] Systolic (mm Hg) 2017-07-06 20:50:00 Sukhwinder rial Main Diastolic (mm Hg) 2017-07-06 20:50:00 Mem orial Main Temperature Oral (F) 2017-07-06 20:20:00 36.2 [facility] Main Temperature Oral (F) 2017-07-06 14:20:00 36.8 [facility] Main Height 2017-07-06 14:20:00 180.34 cm Memorial Main Height 2017-07-05 21:19:00 180.34 cm [facility] Systolic (mm Hg) 2017-03-05 14:15:00 Sukhwinder rial [facility] Diastolic (mm Hg) 2017-03-05 14:15:00 Mem orial Main Respitory Rate 2017-03-05 14:15:00 Memori al [facility] Weight 2017-03-05 13:58:00 [facility] BMI Calculated 2017-03-05 13:58:00 Memori al Main Height 2017-03-05 13:58:00 180.34 cm [facility] Respitory Rate 2014-08-14 16:30:00 Memori al Main Systolic (mm Hg) 2014-08-14 16:30:00 Sukhwinder rial [facility] Diastolic (mm Hg) 2014-08-14 16:30:00 Mem orial [facility] Diastolic (mm Hg) 2014-08-14 15:40:00 Mem orial Main Systolic (mm Hg) 2014-08-14 15:40:00 Sukhwinder rial Main Respitory Rate 2014-08-14 15:40:00 Memori al Main Heart Rate 2014-08-14 15:40:00 [facility] Diastolic (mm Hg) 2014-08-14 15:30:00 Mem orial Main Systolic (mm Hg) 2014-08-14 15:30:00 Sukhwinder rial Main Heart Rate 2014-08-14 15:30:00 [facility] Respitory Rate 2014-08-14 15:30:00 Memori al Main Heart Rate 2014-08-14 15:20:00 [facility] Temperature Oral (F) 2014-08-14 15:00:00 36.3 [facility] Height 2014-08-14 11:10:00 180.34 cm [facility] Main Weight 2014-08-14 11:10:00 [facility] Temperature Oral (F) 2014-08-14 11:10:00 36.6 [facility] Main Weight 2014-08-02 21:29:00 [facility] Height 2014-08-02 21:29:00 180.34 cm [facility] Main Procedures Procedure Date / Time Performing Clinician Source Performed [id number] 2022-12-07 00:00:00 CUEJO.01 [facility] [id number] 2022-12-07 00:00:00 CUEJO.01 [facility] [id number] 2022-12-07 00:00:00 CUEJO.01 [facility] [id number] 2022-12-05 00:00:00 RAMED [facility] ARTHROSCOPY SHOULDER 2017-07-06 18:29:00 Ansley Quach SURGICAL CAPSULORRHAPHY [id number] (Right)<sup>1</sup> ARTHROSCOPY SHOULDER 2017-07-06 18:29:00 Ansley Quach W/SUBACROMIAL DECOMPRESSION/ACROMIOPLAS TY [id number] (Right)<sup>2</sup> ARTHROSCOPIC DEBRIDEMENT 2014-08-14 13:18:00 Efra Lindsey Mem [facility]ly [facility] SHOULDER-LIMITE (Left)<sup>1</sup> ARTHROSCOPY SHOULDER FOR 2014-08-14 13:18:00 Efra Lindsey Mem [facility] EXCISION OF DIS (Left)<sup>2</sup> colonoscopy 2011-05-10 00:00:00 Vijay Her thurston cyst removal back 2011-05-10 00:00:00 Vijay welsh Encounters Start End Encounter Admission Attending Care Care Encounter Source Date/Time Date/Time Type Type Clinicians Facility Department ID 2022-12-05 2022-12-09 Inpatient UR Jeanna, MARILYNCL INTE [id number] [facility] 00:10:00 15:57:[address] 2017-07-06 2017-07-06 Outpatient [facility] [id number] Memoria 13:41:31 22:20:00 [facility] 2017-07-06 2017-07-06 Outpatient Rosalia [id number] 07:41:31 16:20:00 Efra Brown 2017-07-06 2017-07-06 Outpatient [facility] [id number] Memoria 07:41:31 16:20:00 r [facility] 2017-03-05 2017-03-05 Bedded [facility] [id number] Memoria 13:52:00 16:25:[address] 2017-03-05 2017-03-05 Outpatient Physician, [facility] [id number] 08:52:00 11:25:00 Non 00 Associated 2017-01-29 2017-01-30 Outpt Diag [facility] [id number] Memoria 22:38:00 04:59:00 Services r [address] 2017-01-29 2017-01-29 [facility] [id number] 17:38:00 23:59:00 Efra Yesenia 2014-08-14 2014-08-14 Outpatient [id number] Memoria 05:21:11 11:30:00 [id number] 81.2000 Miller n [facility] 2014-08-14 2014-08-14 Outpatient nullFlavo [facility] [id number] Memoria 05:21:11 11:30:00 r sana Quach 2014-06-01 2014-06-02 Outpt Diag nullFlavo [facility] [id number] Memoria 19:03:00 05:59:00 Services r Outpatient 03 l [facility] 2014-06-01 2014-06-01 Outpatient Lindsey, [id number] 13:03:00 23:59:00 Efra Patterson [id number] 01 Results Test Description Test Time Test Comments Results Result Comments Source GLUCOSE BEDSIDE 2022-12-09 12:57:00 Test Item Value Reference Range Interpretation Comme nts GLUCOSE BEDSIDE (test code = 157 MG/DL 70-110 H Performed by certified 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 [facility]) [facility] GLUCOSE [id number] 07:59:00 Test Item Value Reference Range Interpretation Comments GLUCOSE BEDSIDE (test 171 MG/DL 70-110 H [facility] med by certified code = GLUBED) 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 [facility] BASIC METABOLIC [id number] 06:06:00 Test Item Value Reference Range Interpretation Comments SODIUM (test code = 134 mEq/L 134-147 N NA) POTASSIUM (test code 3.8 mEq/L 3.4-5.0 N = K) CHLORIDE (test code 101 mEq/L 100-108 N = CL) CARBON DIOXIDE (test 25 mEq/l 21-33 N code = CO2) ANION GAP (test code 12 0-20 N = GAP) GLUCOSE (test code = 229 mg/dL 70-110 H GLU) BLOOD UREA NITROGEN 26 mg/dL 7-18 H (test code = BUN) GLOMERULAR 40.0 70-80 L The Glomerular FILTRATION RATE Filtration R ate is a (test code = GFR) calculated parameterbased on serum Creatinine, pat ient age and sex. GFR va luesless than 60 mL/min/ 1.73 square meters a re indicative ofCh ronic Kidney Disease. Values less than 15 mL/min/1.73squa re meters indicate Kidney failure. The calculation forGFR is based on the CKD-EPI (2020) calculat ion. This formulais race indifferent and is the recommended for marty for GFRby the [facility] on for Adults.The GFR will not calculate if th e sex is unknown or if thepatient's ag e is <18 years. CREATININE (test 1.8 mg/dL 0.6-1.3 H code = CREAT) CALCIUM (test code = 8.8 mg/dL 8.0-10.5 N CA) [id number] 06:06:00 Test Item Value Reference Range Interpretation Comments PHOSPHOROUS (test code = PHOS) 2.9 MG/DL 2.5-4.9 N [id number] 06:06:00 Test Item Value Reference Range Interpretation Comments MAGNESIUM (test code = MAG) 1.53 mg/dL 1.80-2.40 L CALCIUM [id number] 06:06:00 Test Item Value Reference Range Interpretation Comments CALCIUM IONIZED (test code = NAZARIO) 1.11 MMOL/L 1.09-1.30 N CBC W/AUTO [id number] 05:27:00 Test Item Value Reference Range Interpretation Comments WHITE BLOOD CELL (test code = 7.7 x10 3/uL 4.5-11.0 N WBC) RED BLOOD CELL (test code = 4.07 x10 6/uL 4.00-5.60 N RBC) HEMOGLOBIN (test code = HGB) 12.5 g/dL 12.5-16.9 N HEMATOCRIT (test code = HCT) 36.9 % 37.5-50.7 L MEAN CELL VOLUME (test code = 90.7 fL 81.0-99.0 N MCV) MEAN CELL HGB (test code = MCH) 30.7 pg 27.0-33.0 N MEAN CELL HGB CONCETRATION 33.9 g/dL 33.0-37.0 N (test code = MCHC) RED CELL DISTRIBUTION WIDTH CV 14.0 % 11.5-14.5 N (test code = RDW) RED CELL DISTRIBUTION WIDTH SD 46.6 fL 37.0-54.0 N (test code = RDW-SD) PLATELET COUNT (test code = 191 x10 3/uL 150-400 N PLT) MEAN PLATELET VOLUME (test code 11.3 fL 7.0-9.0 H = MPV) NEUTROPHIL % (test code = NT%) 56.9 % 56.0-77.0 N IMMATURE GRANULOCYTE % (test 0.8 % 0.0-2.0 N code = IG%) LYMPHOCYTE % (test code = LY%) 15.4 % 14.0-32.0 N MONOCYTE % (test code = MO%) 17.0 % 4.8-9.0 H EOSINOPHIL % (test code = EO%) 9.2 % 0.3-3.7 H BASOPHIL % (test code = BA%) 0.7 % 0.0-2.0 N NUCLEATED RBC % (test code = 0.0 % 0-0 N NRBC%) NEUTROPHIL # (test code = NT#) 4.36 x10 3/uL 2.0-7.6 N IMMATURE GRANULOCYTE # (test 0.06 x10 3/uL 0.00-0.03 H code = IG#) LYMPHOCYTE # (test code = LY#) 1.18 x10 3/uL 1.0-3.8 N MONOCYTE # (test code = MO#) 1.30 x10 3/uL 0.1-0.8 H EOSINOPHIL # (test code = EO#) 0.70 x10 3/uL 0.0-0.2 H BASOPHIL # (test code = BA#) 0.05 x10 3/uL 0.0-0.2 N NUCLEATED RBC # (test code = 0.00 x10 3/uL 0.0-0.1 N NRBC#) MANUAL DIFF REQUIRED (test code NO = MDIFF) - XR CHEST 1 [id number] 00:00:00 [facility] [place] [place]: JEAN CLAUDE WALLACE ROSE MARIE : 1950 Sex: MFAX: Nisha Meeks MD [phone] [place]: St: ADM FAX: Clara Mary CNP FAX: Kishan aMc [phone] Name: JEAN CLAUDE WALLACE [facility] : 1950 Age/S: 72/M [address] [place] [address] Unit #: [id number] Loc: G.[address] [place] [address] Phys: Clara Mary CNP Acct: [id number] Dis Date: Status: ADM IN PHONE #: [phone] Exam Date: 12/09/2022614 FAX #: [phone] Reason: Pulmonary edema EXAMS: CPT CODE: [id number] XR CHEST 1 V 87649 PROCEDURE INFORMATION: Exam: XR Chest Exam date and time: 12/09/2022 5:42 AM Age: 72 years old Clinical indication: Other: Pulmonary edema TECHNIQUE: Imaging protocol: Radiologic exam of the chest. Views: 1 view. COMPARISON: CR XR CHEST 1V 12/08/2022 5:49 AM FINDINGS: Tubes, catheters and devices: Support apparatus is unchanged in position. Lungs: Stable bibasilar airspace opacities. Pleural spaces: Unremarkable. No pleural effusion. No pneumothorax. Heart/Mediastinum: Stable cardiomediastinal silhouette. Bones/joints: Unchanged osseous structures. IMPRES DEMARCUS: Stable examination. at 0630 Reported and signed by: Thor Mccartney M.D. 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 [facility] GLUCOSE [id number] 17:39:00 Test Item Value Reference Range Interpretation Comments GLUCOSE BEDSIDE (test 202 MG/DL 70-110 H Perfor med by certified code = GLUBED) 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 [facility] GLUCOSE [id number] 12:06:00 Test Item Value Reference Range Interpretation Comments GLUCOSE BEDSIDE (test 171 MG/DL 70-110 H Perfor med by certified code = GLUBED) 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 [facility] CBC W/AUTO [id number] 08:17:00 Test Item Value Reference Range Interpretation Comments WHITE BLOOD CELL 5.9 x10 3/uL 4.5-11.0 N (test code = WBC) RED BLOOD CELL (test 4.17 x10 6/uL 4.00-5.60 N code = RBC) HEMOGLOBIN (test code 12.8 g/dL 12.5-16.9 N = HGB) HEMATOCRIT (test code 38.3 % 37.5-50.7 N = HCT) MEAN CELL VOLUME 91.8 fL 81.0-99.0 N (test code = MCV) MEAN CELL HGB (test 30.7 pg 27.0-33.0 N code = MCH) MEAN CELL HGB 33.4 g/dL 33.0-37.0 N CONCETRATION (test code = MCHC) RED CELL DISTRIBUTION 14.4 % 11.5-14.5 N WIDTH CV (test code = RDW) PLATELET COUNT (test 158 x10 3/uL 150-400 N code = PLT) NEUTROPHIL % (test 49.4 % 56.0-77.0 L code = NT%) LYMPHOCYTE % (test 19.3 % 14.0-32.0 N code = LY%) NEUTROPHIL # (test 2.92 x10 3/uL 2.0-7.6 N code = NT#) LYMPHOCYTE # (test 1.14 x10 3/uL 1.0-3.8 N code = LY#) MANUAL DIFF REQUIRED NO SLIDE R EVTAVONWED, (test code = MDIFF) CONSISTE NT WITH AUTO DIFF. RED CELL DISTRIBUTION 48.7 fL 37.0-54.0 N WIDTH SD (test code = RDW-SD) MEAN PLATELET VOLUME 11.2 fL 7.0-9.0 H (test code = MPV) IMMATURE GRANULOCYTE 1.2 % 0.0-2.0 N % (test code = IG%) MONOCYTE % (test code 23.6 % 4.8-9.0 H = MO%) EOSINOPHIL % (test 5.1 % 0.3-3.7 H code = EO%) BASOPHIL % (test code 1.4 % 0.0-2.0 N = BA%) NUCLEATED RBC % (test 0.0 % 0-0 N code = NRBC%) IMMATURE GRANULOCYTE 0.07 x10 3/uL 0.00-0.03 H # (test code = IG#) MONOCYTE # (test code 1.39 x10 3/uL 0.1-0.8 H = MO#) EOSINOPHIL # (test 0.30 x10 3/uL 0.0-0.2 H code = EO#) BASOPHIL # (test code 0.08 x10 3/uL 0.0-0.2 N = BA#) NUCLEATED RBC # (test 0.00 x10 3/uL 0.0-0.1 N code = NRBC#) GLUCOSE [id number] 06:51:00 Test Item Value Reference Range Interpretation Comments GLUCOSE BEDSIDE (test 196 MG/DL 70-110 H [facility] med by certified code = GLUBED) 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 [facility] BASIC METABOLIC [id number] 05:16:00 Test Item Value Reference Range Interpretation Comments SODIUM (test code = 131 mEq/L 134-147 L NA) POTASSIUM (test code 4.3 mEq/L 3.4-5.0 N = K) CHLORIDE (test code 97 mEq/L 100-108 L = CL) CARBON DIOXIDE (test 26 mEq/l 21-33 N code = CO2) ANION GAP (test code 12 0-20 N = GAP) GLUCOSE (test code = 172 mg/dL 70-110 H GLU) BLOOD UREA NITROGEN 27 mg/dL 7-18 H (test code = BUN) GLOMERULAR 31.4 70-80 L The Glomerular FILTRATION RATE Filtration R ate is a (test code = GFR) calculated parameterbased on serum Creatinine, pat ient age and sex. GFR va luesless than 60 mL/min/ 1.73 square meters a re indicative ofCh ronic Kidney Disease. Values less than 15 mL/min/1.73squa re meters indicate Kidney failure. The calculation forGFR is based on the CKD-EPI (2020) calculat ion. This formulais race indifferent and is the recommended for marty for GFRby the [facility] nal Kidney Foundati on for Adults.The GFR will not calculate if th e sex is unknown or if thepatient's ag e is <18 years. CREATININE (test 2.2 mg/dL 0.6-1.3 H code = CREAT) CALCIUM (test code = 8.2 mg/dL 8.0-10.5 N CA) [id number] 05:16:00 Test Item Value Reference Range Interpretation Comments PHOSPHOROUS (test code = PHOS) 3.0 MG/DL 2.5-4.9 N [id number] 05:16:00 Test Item Value Reference Range Interpretation Comments MAGNESIUM (test code = MAG) 1.71 mg/dL 1.80-2.40 L CALCIUM [id number] 05:16:00 Test Item Value Reference Range Interpretation Comments CALCIUM IONIZED (test code = NAZARIO) 1.07 MMOL/L 1.09-1.30 L AB HEPATITIS B [id number] 05:13:00 Test Item Value Reference Range Interpretation Comments AB HEPATITIS B < 3.1 mIU/mL See_Comment L Status of Im munity SURFACE (test code = Anti-HB s Level HBSAB) --- I nconsi stent with Immu nity 0.0 - 9.9Consis tent with Immunity >9.9Performed A t: HD [facility] [address] [id number] Kyle L MD Ph:[phone] [Automated mess age] The system [employer] generated this result transmitted ref erence range: Immunity >9.9. The reference r ana was not used to interpret this result as normal/abnor mal. - XR CHEST 1 [id number] 00:00:00 [facility] : 1950 Sex: MFAX: Clara Mary CNP [place]: St: ADM FAX: Kishan Mac [phone] Name: JEAN CLAUDE WALLACE [facility] : 1950 Age/S: 72/M [address] [place] [address] Unit #: [id number] Loc: G.[address] [place] [address] Phys: Clara Mary DIPLOMA DENTAL ASSISTANT Acct: [id number] Dis Date: Status: ADM IN PHONE #: [phone] Exam Date: 12/08/2022 0553 FAX #: [phone] Reason: Pulmonary edema EXAMS: CPT CODE: [id number] XR CHEST 1 V 48566 PROCEDURE INFORMATION: Exam: XR Chest Exam date and time: 12/08/2022 5:49 AM Age: 72 years old Clinical indication: Other: Pulmonary edema TECHNIQUE: Imaging protocol: Radiologic exam of [facility]. Views: 1 view. COMPARISON: CR XR CHEST 1V 07/12/2022 16:54 FINDINGS: Tubes, catheters and devices: Stable right IJ temporary dialysis catheter and left subclavian dual lead pacemaker. Lungs: There are persistent mild perihilar and interstitial opacities. There is no lung consolidation. Pleural spaces: There is no pleural effusion or pneumothorax. Heart/Mediastinum: The cardiac silhouette is moderately enlarged. Bones/joints: There are no acute bony abnormalities. [place] screw overlies the proximal right humerus suggestive of prior rotator cuff repair. IMPRESSION: 1. Stable chest with findings suggestive of mild pulmonary edema or infection. 2. Stable moderate cardiomegaly. ElectronicallySigned by Nia Barreto on 12/08/2022 at 0718 Reported and signed by: Elizabeth Barreto M.D. 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 [facility] GLUCOSE [id number] 12:08:00 Test Item Value Reference Range Interpretation Comments GLUCOSE BEDSIDE (test 116 MG/DL 70-110 H Perfor med by certified code = GLUBED) 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 [facility] GLUCOSE [id number] 08:21:00 Test Item Value Reference Range Interpretation Comments GLUCOSE BEDSIDE (test 146 MG/DL 70-110 H Perfor med by certified code = GLUBED) 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 [facility] BASIC METABOLIC [id number] 06:55:00 Test Item Value Reference Range Interpretation Comments SODIUM (test code = 133 mEq/L 134-147 L NA) POTASSIUM (test code 4.5 mEq/L 3.4-5.0 N = K) CHLORIDE (test code 98 mEq/L 100-108 L = CL) CARBON DIOXIDE (test 27 mEq/l 21-33 N code = CO2) ANION GAP (test code 12 0-20 N = GAP) GLUCOSE (test code = 139 mg/dL 70-110 H GLU) BLOOD UREA NITROGEN 38 mg/dL 7-18 H (test code = BUN) GLOMERULAR 21.7 70-80 L The Glomerular FILTRATION RATE Filtration R ate is a (test code = GFR) calculated parameterbased on serum Creatinine, pat ient age and sex. GFR va luesless than 60 mL/min/ 1.73 square meters a re indicative ofCh ronic Kidney Disease. Values less than 15 mL/min/1.73squa re meters indicate Kidney failure. The calculation forGFR is based on the CKD-EPI (2020) calculat ion. This formulais race indifferent and is the recommended for marty for GFRby the Natio nal Kidney Foundati on for Adults.The GFR will not calculate if th e sex is unknown or if thepatient's ag e is <18 years. CREATININE (test 3.0 mg/dL 0.6-1.3 H code = CREAT) CALCIUM (test code = 9.2 mg/dL 8.0-10.5 N CA) [id number] 06:55:00 Test Item Value Reference Range Interpretation Comments PHOSPHOROUS (test code = PHOS) 3.5 MG/DL 2.5-4.9 N [id number] 06:55:00 Test Item Value Reference Range Interpretation Comments MAGNESIUM (test code = MAG) 1.82 mg/dL 1.80-2.40 N CALCIUM [id number] 06:55:00 Test Item Value Reference Range Interpretation Comments CALCIUM IONIZED (test code = NAZARIO) 1.20 MMOL/L 1.09-1.30 N CBC W/AUTO [id number] 06:42:00 Test Item Value Reference Range Interpretation Comments WHITE BLOOD CELL (test code = 9.2 x10 3/uL 4.5-11.0 N WBC) RED BLOOD CELL (test code = 4.21 x10 6/uL 4.00-5.60 N RBC) HEMOGLOBIN (test code = HGB) 12.9 g/dL 12.5-16.9 N HEMATOCRIT (test code = HCT) 38.2 % 37.5-50.7 N MEAN CELL VOLUME (test code = 90.7 fL 81.0-99.0 N MCV) MEAN CELL HGB (test code = MCH) 30.6 pg 27.0-33.0 N MEAN CELL HGB CONCETRATION 33.8 g/dL 33.0-37.0 N (test code = MCHC) RED CELL DISTRIBUTION WIDTH CV 14.3 % 11.5-14.5 N (test code = RDW) RED CELL DISTRIBUTION WIDTH SD 47.3 fL 37.0-54.0 N (test code = RDW-SD) PLATELET COUNT (test code = 190 x10 3/uL 150-400 N PLT) MEAN PLATELET VOLUME (test code 11.1 fL 7.0-9.0 H = MPV) NEUTROPHIL % (test code = NT%) 76.1 % 56.0-77.0 N IMMATURE GRANULOCYTE % (test 0.7 % 0.0-2.0 N code = IG%) LYMPHOCYTE % (test code = LY%) 5.9 % 14.0-32.0 L MONOCYTE % (test code = MO%) 14.4 % 4.8-9.0 H EOSINOPHIL % (test code = EO%) 2.0 % 0.3-3.7 N BASOPHIL % (test code = BA%) 0.9 % 0.0-2.0 N NUCLEATED RBC % (test code = 0.0 % 0-0 N NRBC%) NEUTROPHIL # (test code = NT#) 7.01 x10 3/uL 2.0-7.6 N IMMATURE GRANULOCYTE # (test 0.06 x10 3/uL 0.00-0.03 H code = IG#) LYMPHOCYTE # (test code = LY#) 0.54 x10 3/uL 1.0-3.8 L MONOCYTE # (test code = MO#) 1.32 x10 3/uL 0.1-0.8 H EOSINOPHIL # (test code = EO#) 0.18 x10 3/uL 0.0-0.2 N BASOPHIL # (test code = BA#) 0.08 x10 3/uL 0.0-0.2 N NUCLEATED RBC # (test code = 0.00 x10 3/uL 0.0-0.1 N NRBC#) MANUAL DIFF REQUIRED (test code NO = MDIFF) - XR CHEST 1 [id number] 00:00:00 [facility] [place]: JEAN CLAUDE WALLACE : 1950 Sex: MFAX: Kishan Mac [phone] [place]: St: ADM FAX: Parker Gallegos [phone] ---- [facility] 1950 Age/S: 72/M [address] [place] [address] Unit #: [id number] Loc: G.3[address] [place] [address] Phys: Parker Gallegos BAG TURNER Acct: [id number] Dis Date: Status: ADM IN PHONE #: Exam Date: 12/07/2022 1722 FAX #: [phone] Reason: Post PM/ICD EXAMS: CPT CODE: [id number] XR CHEST 1 V 99054 PROCEDURE INFORMATION: Exam: XR Chest Exam date and time: 12/07/2022 4:54 PM Age: 72 years old Clinical indication: Screening exam; Other screening; Additional info: Post pm/icd TE CHNIQUE: Imaging protocol: Radiologic exam of the chest. Views: 1 view. COMPARISON: CR XR CHEST 1V 12/07/2022 5:47 AM FINDINGS: Tubes, catheters and devices: Left chest pacemaker device is demonstrated.Right neck dialysis catheter tip is positioned over the distal SVC region. Lungs: Mild bilateral perihilar and basilar interstitial lung opacities, suggesting pulmonary edema versus infiltrates. The peripheral lungs are otherwise clear. No consolidation. Pleural spaces: No pleural effusion. No pneumothorax. Heart/Mediastinum: Cardiac silhouette appears moderately enlarged. Vasculature: Moderate to severe atherosclerotic calcification demonstrated within the aorta. Bones/joints: [place] screw hardwareoverlies the proximal right humerus, suggesting previous rotator cuff repair. IMPRESSION: 1. Moderate enlarged cardiac silhouette. 2. Mild interstitial pulmonary edema versus infiltrates. at 1832 Reported and signed by: Bruno Tineo M.D. CC: Kishan Kulkarni MD; Parker Gallegos Technologist: RT Cleo(Edgar) Trnscrd Date/Time/By: 12/07/2022 (1831) : By: [email or web address] Orig Print D/T: S: 12/07/2022 (1832) PAGE 1 Signed Report- XR CHEST 1 [id number] 00:00:00 [facility] : 1950 Sex: MFAX: Clara Mary CNP [place]: St: ADM FAX: Kishan Mac [phone] Name: RODRIGOJEAN CLAUDE TROTTER [facility] : 1950 Age/S: 72/M [address] [facility] Unit #: [id number] Loc: G.3307 [place] [address] Phys: Clara Mary CNP Acct: [id number] Dis Date: Status: ADM IN PHONE #: [phone] Exam Date: 12/07/2022651 FAX #: [phone] Reason: Pulmonary edema EXAMS: CPT CODE: [id number] XR CHEST 1 V 59805 PROCEDURE INFORMATION: Exam: XR Chest Exam date and time: 12/07/2022 5:47 AM Age: 72 years old Clinical indication: Other: Pulmonary edema TECHNIQUE: Imaging protocol: Radiologic exam of the chest. Views: 1 view. COMPARISON: CR XR CHEST 1V 12/06/2022 7:14 AM FINDINGS: Tubes, catheters and devices: Non tunneled right internal jugular central venous catheter with tip in the right atrium, unchanged. Lungs: Mild prominence of the interstitial markings and central pulmonary vasculature bilaterally, stable. No focal consolidation. Pleural spaces: Unremarkable. No pleural effusion. No pneumothorax. Heart/Mediastinum: Stable cardiomegaly. Bones/joints: Stable. IMPRESSION: Stable exam findingsof cardiomegaly with probable mild pulmonary edema, correlate clinically. 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 [facility] GLUCOSE [id number] 16:34:00 Test Item Value Reference Range Interpretation Comments GLUCOSE BEDSIDE (test 162 MG/DL 70-110 H Perfor med by certified code = GLUBED) 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 [facility] GLUCOSE [id number] 11:44:00 Test Item Value Reference Range Interpretation Comments GLUCOSE BEDSIDE (test 172 MG/DL 70-110 H Perfor med by certified code = GLUBED) 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 [facility] GLUCOSE [id number] 07:55:00 Test Item Value Reference Range Interpretation Comments GLUCOSE BEDSIDE (test 121 MG/DL 70-110 H Perfor med by certified code = GLUBED) 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 [facility] BASIC METABOLIC [id number] 07:30:00 Test Item Value Reference Range Interpretation Comments SODIUM (test code = 133 mEq/L 134-147 L NA) POTASSIUM (test code 4.4 mEq/L 3.4-5.0 N = K) CHLORIDE (test code 100 mEq/L 100-108 N = CL) CARBON DIOXIDE (test 27 mEq/l 21-33 N code = CO2) ANION GAP (test code 10 0-20 N = GAP) GLUCOSE (test code = 143 mg/dL 70-110 H GLU) BLOOD UREA NITROGEN 29 mg/dL 7-18 H (test code = BUN) GLOMERULAR 15.8 70-80 L The Glomerular FILTRATION RATE Filtration R ate is a (test code = GFR) calculated parameterbased on serum Creatinine, pat ient age and sex. GFR va luesless than 60 mL/min/ 1.73 square meters a re indicative ofCh ronic Kidney Disease. Values less than 15 mL/min/1.73squa re meters indicate Kidney failure. The calculation forGFR is based on the CKD-EPI (2020) calculat ion. This formulais race indifferent and is the recommended for marty for GFRby the [facility] Kidney Foundati on for Adults.The GFR will not calculate if th e sex is unknown or if thepatient's ag e is <18 years. CREATININE (test 3.9 mg/dL 0.6-1.3 H code = CREAT) CALCIUM (test code = 8.4 mg/dL 8.0-10.5 N CA) [id number] 07:30:00 Test Item Value Reference Range Interpretation Comments PHOSPHOROUS (test code = PHOS) 4.6 MG/DL 2.5-4.9 N [id number] 07:30:00 Test Item Value Reference Range Interpretation Comments MAGNESIUM (test code = MAG) 1.99 mg/dL 1.80-2.40 N CALCIUM [id number] 07:30:00 Test Item Value Reference Range Interpretation Comments CALCIUM IONIZED (test code = NAZARIO) 1.08 MMOL/L 1.09-1.30 L CBC W/AUTO [id number] 06:36:00 Test Item Value Reference Range Interpretation Comments WHITE BLOOD CELL (test code = 13.6 x10 3/uL 4.5-11.0 H WBC) RED BLOOD CELL (test code = 4.07 x10 6/uL 4.00-5.60 N RBC) HEMOGLOBIN (test code = HGB) 12.6 g/dL 12.5-16.9 N HEMATOCRIT (test code = HCT) 37.6 % 37.5-50.7 N MEAN CELL VOLUME (test code = 92.4 fL 81.0-99.0 N MCV) MEAN CELL HGB (test code = MCH) 31.0 pg 27.0-33.0 N MEAN CELL HGB CONCETRATION 33.5 g/dL 33.0-37.0 N (test code = MCHC) RED CELL DISTRIBUTION WIDTH CV 14.5 % 11.5-14.5 N (test code = RDW) RED CELL DISTRIBUTION WIDTH SD 49.1 fL 37.0-54.0 N (test code = RDW-SD) PLATELET COUNT (test code = 174 x10 3/uL 150-400 N PLT) MEAN PLATELET VOLUME (test code 11.3 fL 7.0-9.0 H = MPV) NEUTROPHIL % (test code = NT%) 71.8 % 56.0-77.0 N IMMATURE GRANULOCYTE % (test 0.6 % 0.0-2.0 N code = IG%) LYMPHOCYTE % (test code = LY%) 11.6 % 14.0-32.0 L MONOCYTE % (test code = MO%) 13.7 % 4.8-9.0 H EOSINOPHIL % (test code = EO%) 1.8 % 0.3-3.7 N BASOPHIL % (test code = BA%) 0.5 % 0.0-2.0 N NUCLEATED RBC % (test code = 0.0 % 0-0 N NRBC%) NEUTROPHIL # (test code = NT#) 9.79 x10 3/uL 2.0-7.6 H IMMATURE GRANULOCYTE # (test 0.08 x10 3/uL 0.00-0.03 H code = IG#) LYMPHOCYTE # (test code = LY#) 1.58 x10 3/uL 1.0-3.8 N MONOCYTE # (test code = MO#) 1.87 x10 3/uL 0.1-0.8 H EOSINOPHIL # (test code = EO#) 0.24 x10 3/uL 0.0-0.2 H BASOPHIL # (test code = BA#) 0.07 x10 3/uL 0.0-0.2 N NUCLEATED RBC # (test code = 0.00 x10 3/uL 0.0-0.1 N NRBC#) MANUAL DIFF REQUIRED (test code NO = MDIFF) [id number] 01:37:00 Test Item Value Reference Range Interpretation Comments PHOSPHOROUS (test code = PHOS) 4.2 MG/DL 2.5-4.9 [id number] 01:37:00 Test Item Value Reference Range Interpretation Comments MAGNESIUM (test code = MAG) 2.02 mg/dL 1.80-2.40 N CALCIUM [id number] 01:37:00 Test Item Value Reference Range Interpretation Comments CALCIUM IONIZED (test code = NAZARIO) 1.10 MMOL/L 1.09-1.30 N GLUCOSE [id number] 01:15:00 Test Item Value Reference Range Interpretation Comments GLUCOSE BEDSIDE (test 123 MG/DL 70-110 H [facility] med by certified code = GLUBED) 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 [facility] BASIC METABOLIC [id number] 00:53:00 Test Item Value Reference Range Interpretation Comments SODIUM (test code = 133 mEq/L 134-147 L NA) POTASSIUM (test code 4.4 mEq/L 3.4-5.0 N = K) CHLORIDE (test code 99 mEq/L 100-108 L = CL) CARBON DIOXIDE (test 26 mEq/l 21-33 code = CO2) ANION GAP (test code 12 0-20 N = GAP) GLUCOSE (test code = 127 mg/dL 70-110 H GLU) BLOOD UREA NITROGEN 22 mg/dL 7-18 H (test code = BUN) GLOMERULAR 17.4 70-80 L The Glomerular FILTRATION RATE Filtration R ate is a (test code = GFR) calculated parameterbased on serum Creatinine, pat ient age and sex. GFR va luesless than 60 mL/min/ 1.73 square meters a re indicative ofCh ronic Kidney Disease. Values less than 15 mL/min/1.73squa re meters indicate Kidney failure. The calculation forGFR is based on the CKD-EPI (2020) calculat ion. This formulais race indifferent and is the recommended for marty for GFRby the [facility] on for Adults.The GFR will not calculate if th e sex is unknown or if thepatient's ag e is <18 years. CREATININE (test 3.6 mg/dL 0.6-1.3 H code = CREAT) CALCIUM (test code = 8.6 mg/dL 8.0-10.5 N CA) - XR CHEST 1 [id number] 00:00:00 [facility] : 1950 Sex: MFAX: Clara Mary CNP [place]: St: ADM FAX: Kishan Mac [phone] Name: JEAN CLAUDE WALLACE [facility] : 1950 Age/S: 72/M [address] [place] [address] Unit #: [id number] Loc: G.5154 [place] [address] Phys: Clara Mary DIPLOMA DENTAL ASSISTANT Acct: [id number] Dis Date: Status: ADM IN PHONE #: [phone] Exam Date: 12/06/2022 0706 FAX #: [phone] Reason: Pulmonary edema EXAMS: CPT CODE: [id number] XR CHEST 1 V [id number] PROCEDURE INFORMATION: Exam: XR Chest Exam date and time: 12/06/2022 7:14 AM Age: 72 years old Clinical indication: Other: Pulmonary edema TECHNIQUE: Imaging protocol: Radiologic exam of the chest. Views: 1 view. COMPARISON: CR XR CHEST 1V 12/05/2022 6:19 AM FINDINGS: Tubes, catheters anddevices: Right neck dialysis catheter tip is positioned over the SVC region. Lungs: Mild bilateral perihilar and basilar interstitial lung opacities, suggesting pulmonary edema versus infiltrates. The peripheral lungs are otherwise clear. No consolidation. Pleural spaces: No pleural effusion. No pneumothorax. Heart/Mediastinum: Cardiac silhouette appears dvlx-bw-mojhtappho enlarged. Vasculature: Rrka-ep-gpmuhtoj atherosclerotic calcification demonstrated within the aorta. Bones/joints: Generalized bony degenerative changes. [place] screw hardware overlies the proximal right humerus, suggesting previous rotator cuff repair. IMPRESSION: 1. Gqtc-re-ringblbfkp enlarged cardiac silhouette. 2. Mild interstitial pulmonary edema versus infiltrates. at 0909 Reported and signed by: Bruno Tineo M.D. CC: Clara Mary; Kishan Kulkarni MD Technologist: RT Irene(R) Trnscrd Date/Time/By: 12/06/2022 (908) :By: [email or web address] Orig Print D/T: S: 12/07/2022 (706) PAGE 1 Signed ReportACUTE HEPATITIS [id number] 19:02:00 Test Item Value Reference Range Interpretation Comments AB HEPATITIS A IGM (test NON REACTIVE INDEX NON REACT. code = HAVMAB) AG HEPATITIS B SURFACE NON REACTIVE INDEX NonReactive (test code = HBSAG) AB HEPATITIS B CORE IGM NON REACTIVE INDEX NON REACT. (test code = HBCMAB) AB HEPATITIS C (test code NON REACTIVE INDEX NON REACT. 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 [facility] CBC W/AUTO [id number] 11:15:00 Test Item Value Reference Range Interpretation Comments WHITE BLOOD CELL (test code = 17.4 x10 3/uL 4.5-11.0 H WBC) RED BLOOD CELL (test code = 4.26 x10 6/uL 4.00-5.60 N RBC) HEMOGLOBIN (test code = HGB) 13.3 g/dL 12.5-16.9 N HEMATOCRIT (test code = HCT) 39.5 % 37.5-50.7 N MEAN CELL VOLUME (test code = 92.7 fL 81.0-99.0 N MCV) MEAN CELL HGB (test code = 31.2 pg 27.0-33.0 N MCH) MEAN CELL HGB CONCETRATION 33.7 g/dL 33.0-37.0 N (test code = MCHC) RED CELL DISTRIBUTION WIDTH CV 14.8 % 11.5-14.5 H (test code = RDW) RED CELL DISTRIBUTION WIDTH SD 50.4 fL 37.0-54.0 N (test code = RDW-SD) PLATELET COUNT (test code = 215 x10 3/uL 150-400 N PLT) MEAN PLATELET VOLUME (test 11.1 fL 7.0-9.0 H code = MPV) NEUTROPHIL % (test code = NT%) 76.5 % 56.0-77.0 N IMMATURE GRANULOCYTE % (test 0.7 % 0.0-2.0 N code = IG%) LYMPHOCYTE % (test code = LY%) 8.1 % 14.0-32.0 L MONOCYTE % (test code = MO%) 13.7 % 4.8-9.0 H EOSINOPHIL % (test code = EO%) 0.7 % 0.3-3.7 N BASOPHIL % (test code = BA%) 0.3 % 0.0-2.0 N NUCLEATED RBC % (test code = 0.0 % 0-0 N NRBC%) NEUTROPHIL # (test code = NT#) 13.33 x10 3/uL 2.0-7.6 H IMMATURE GRANULOCYTE # (test 0.13 x10 3/uL 0.00-0.03 H code = IG#) LYMPHOCYTE # (test code = LY#) 1.41 x10 3/uL 1.0-3.8 N MONOCYTE # (test code = MO#) 2.39 x10 3/uL 0.1-0.8 H EOSINOPHIL # (test code = EO#) 0.13 x10 3/uL 0.0-0.2 N BASOPHIL # (test code = BA#) 0.05 x10 3/uL 0.0-0.2 N NUCLEATED RBC # (test code = 0.00 x10 3/uL 0.0-0.1 N NRBC#) MANUAL DIFF REQUIRED (test NO code = MDIFF) GLUCOSE [id number] 07:45:00 Test Item Value Reference Range Interpretation Comments GLUCOSE BEDSIDE (test 185 MG/DL 70-110 H Perfor med by certified code = GLUBED) 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 [facility] UA RFLX MICR CULT IF [id number] 05:52:00 Test Item Value Reference Range Interpretation Comments UA COLOR (test code = COLU) RED YEL/STRAW A UA APPEARANCE (test code = SL CLOUDY CLEAR A APPU) UA GLUCOSE DIPSTICK (test code 3+ NEGATIVE A = DGLUU) UA BILIRUBIN DIPSTICK (test NEGATIVE NEGATIVE code = BILU) UA KETONE DIPSTICK (test code = 1+ NEGATIVE A KETU) UA SPECIFIC GRAVITY (test code 1.020 1.005-1.030 N = SGU) UA BLOOD DIPSTICK (test code = 5+ NEGATIVE DINA) UA PH DIPSTICK (test code = 5.0 5.0-7.0 N CHRIS) UA PROTEIN DIPSTICK (test code 3+ NEGATIVE A = PROU) UA UROBILINIOGEN DIPSTICK (test 0.2 mg/dL 0.2-1.0 code = URO) UA NITRITE DIPSTICK (test code NEGATIVE NEGATIVE = ELIZABETH) UA LEUKOCYTE ESTERASE DIPSTICK 3+ NEGATIVE A (test code = LEUU) UA WBC (test code = WBCU) 10-20 WBC/HPF 0-3 A UA RBC (test code = RBCU) >50 RBC/HPF 0-3 A UA WBC NO REFLEX (test code = 10-20 WBC/HPF 0-3 A WBCUCL) UA BACTERIA (test code = BACU) 2+ /HPF NONE SEEN A UA SQUAMOUS CELLS (test code = 0-5 /HPF NONE SEEN SQU) UA HYALINE CAST (test code = 6-10 /LPF NONE SEEN HYALU) UA MUCUS (test code = MUCU) TRACE /LPF NONE SEEN Indication for culture: RiskForSepsis-no oth srcSpecimen Description: INDWELLING CATH (MACKEY)Cath Status: Less than 14 daysBASIC METABOLIC [id number] 05:41:00 Test Item Value Reference Range Interpretation Comments SODIUM (test code = 126 mEq/L 134-147 L NA) POTASSIUM (test code 5.4 mEq/L 3.4-5.0 H = K) CHLORIDE (test code 96 mEq/L 100-108 L = CL) CARBON DIOXIDE (test 20 mEq/l 21-33 L code = CO2) ANION GAP (test code 15 0-20 N = GAP) GLUCOSE (test code = 186 mg/dL 70-110 H GLU) BLOOD UREA NITROGEN 26 mg/dL 7-18 H (test code = BUN) GLOMERULAR 10.7 70-80 L The Glomerular FILTRATION RATE Filtration R ate is a (test code = GFR) calculated parameterbased on serum Creatinine, pat ient age and sex. GFR va luesless than 60 mL/min/ 1.73 square meters a re indicative ofCh ronic Kidney Disease. Values less than 15 mL/min/1.73squa re meters indicate Kidney failure. The calculation forGFR is based on the CKD-EPI (2020) calculat ion. This formulais race indifferent and is the recommended for marty for GFRby the [facility] Kid[facility] Found[facility] on for Adults.The GFR will not calculate if th e sex is unknown or if thepatient's ag e is <18 years. CREATININE (test 5.4 mg/dL 0.6-1.3 H code = CREAT) CALCIUM (test code = 8.5 mg/dL 8.0-10.5 N CA) CBC W/AUTO [id number] 05:31:00 Test Item Value Reference Range Interpretation Comments WHITE BLOOD CELL (test code = 17.3 x10 3/uL 4.5-11.0 H WBC) RED BLOOD CELL (test code = 4.47 x10 6/uL 4.00-5.60 N RBC) HEMOGLOBIN (test code = HGB) 13.5 g/dL 12.5-16.9 N HEMATOCRIT (test code = HCT) 41.8 % 37.5-50.7 N MEAN CELL VOLUME (test code = 93.5 fL 81.0-99.0 N MCV) MEAN CELL HGB (test code = 30.2 pg 27.0-33.0 N MCH) MEAN CELL HGB CONCETRATION 32.3 g/dL 33.0-37.0 L (test code = MCHC) RED CELL DISTRIBUTION WIDTH CV 15.1 % 11.5-14.5 H (test code = RDW) RED CELL DISTRIBUTION WIDTH SD 51.8 fL 37.0-54.0 N (test code = RDW-SD) PLATELET COUNT (test code = 218 x10 3/uL 150-400 N PLT) MEAN PLATELET VOLUME (test 10.8 fL 7.0-9.0 H code = MPV) NEUTROPHIL % (test code = NT%) 79.3 % 56.0-77.0 H IMMATURE GRANULOCYTE % (test 0.8 % 0.0-2.0 N code = IG%) LYMPHOCYTE % (test code = LY%) 7.7 % 14.0-32.0 L MONOCYTE % (test code = MO%) 11.4 % 4.8-9.0 H EOSINOPHIL % (test code = EO%) 0.5 % 0.3-3.7 N BASOPHIL % (test code = BA%) 0.3 % 0.0-2.0 N NUCLEATED RBC % (test code = 0.0 % 0-0 N NRBC%) NEUTROPHIL # (test code = NT#) 13.71 x10 3/uL 2.0-7.6 H IMMATURE GRANULOCYTE # (test 0.14 x10 3/uL 0.00-0.03 H code = IG#) LYMPHOCYTE # (test code = LY#) 1.34 x10 3/uL 1.0-3.8 N MONOCYTE # (test code = MO#) 1.98 x10 3/uL 0.1-0.8 H EOSINOPHIL # (test code = EO#) 0.08 x10 3/uL 0.0-0.2 N BASOPHIL # (test code = BA#) 0.06 x10 3/uL 0.0-0.2 N NUCLEATED RBC # (test code = 0.00 x10 3/uL 0.0-0.1 N NRBC#) MANUAL DIFF REQUIRED (test NO code = MDIFF) [id number] 01:12:00 Test Item Value Reference Range Interpretation Comments MAGNESIUM (test code = MAG) 2.24 mg/dL 1.80-2.40 N CALCIUM [id number] 01:12:00 Test Item Value Reference Range Interpretation Comments CALCIUM IONIZED (test code = NAZARIO) 1.07 MMOL/L 1.09-1.30 L BASIC METABOLIC [id number] 01:12:00 Test Item Value Reference Range Interpretation Comments SODIUM (test code = 128 mEq/L 134-147 L NA) POTASSIUM (test code 5.1 mEq/L 3.4-5.0 H = K) CHLORIDE (test code 97 mEq/L 100-108 L = CL) CARBON DIOXIDE (test 22 mEq/l 21-33 N code = CO2) ANION GAP (test code 14 0-20 N = GAP) GLUCOSE (test code = 174 mg/dL 70-110 H GLU) BLOOD UREA NITROGEN 29 mg/dL 7-18 H (test code = BUN) GLOMERULAR 11.2 70-80 L The Glomerular FILTRATION RATE Filtration R ate is a (test code = GFR) calculated parameterbased on serum Creatinine, pat ient age and sex. GFR va luesless than 60 mL/min/ 1.73 square meters a re indicative ofCh ronic Kidney Disease. Values less than 15 mL/min/1.73squa re meters indicate Kidney failure. The calculation forGFR is based on the CKD-EPI (2020) calculat ion. This formulais race indifferent and is the recommended for marty for GFRby the Nat nal Kidney Foundati on for Adults.The GFR will not calculate if th e sex is unknown or if thepatient's ag e is <18 years. CREATININE (test 5.2 mg/dL 0.6-1.3 H code = CREAT) CALCIUM (test code = 8.5 mg/dL 8.0-10.5 N CA) HEPATIC FUNCTION [id number] 01:12:00 Test Item Value Reference Range Interpretation Comments TOTAL PROTEIN (test code = PROT) 7.2 g/dL 6.4-8.2 N ALBUMIN (test code = ALB) 4.20 g/dL 3.4-5.0 N BILIRUBIN TOTAL (test code = BILT) 0.50 mg/dL 0.0-1.0 N BILIRUBIN DIRECT (test code = 0.20 MG/DL 0.0-0.30 N BILD) SGOT/AST (test code = AST) 19 IUnit/L 15-37 N SGPT/ALT (test code = ALT) 12 IUnit/L 30-65 L ALKALINE PHOSPHATASE TOTAL (test 42 IUnit/L 20-125 N code = ALKP) BILIRUBIN INDIRECT (test code = 0.30 MG/DL BILIND) [id number] 01:12:00 Test Item Value Reference Range Interpretation Comments PHOSPHOROUS (test code = PHOS) 6.4 MG/DL 2.5-4.9 H CBC W/AUTO [id number] 00:51:00 Test Item Value Reference Range Interpretation Comments WHITE BLOOD CELL (test code = 17.8 x10 3/uL 4.5-11.0 H WBC) RED BLOOD CELL (test code = 4.46 x10 6/uL 4.00-5.60 N RBC) HEMOGLOBIN (test code = HGB) 13.9 g/dL 12.5-16.9 N HEMATOCRIT (test code = HCT) 42.1 % 37.5-50.7 N MEAN CELL VOLUME (test code = 94.4 fL 81.0-99.0 N MCV) MEAN CELL HGB (test code = 31.2 pg 27.0-33.0 N MCH) MEAN CELL HGB CONCETRATION 33.0 g/dL 33.0-37.0 N (test code = MCHC) RED CELL DISTRIBUTION WIDTH CV 14.8 % 11.5-14.5 H (test code = RDW) RED CELL DISTRIBUTION WIDTH SD 51.4 fL 37.0-54.0 N (test code = RDW-SD) PLATELET COUNT (test code = 211 x10 3/uL 150-400 N PLT) MEAN PLATELET VOLUME (test 11.1 fL 7.0-9.0 H code = MPV) NEUTROPHIL % (test code = NT%) 79.6 % 56.0-77.0 H IMMATURE GRANULOCYTE % (test 0.6 % 0.0-2.0 N code = IG%) LYMPHOCYTE % (test code = LY%) 7.3 % 14.0-32.0 L MONOCYTE % (test code = MO%) 11.5 % 4.8-9.0 H EOSINOPHIL % (test code = EO%) 0.6 % 0.3-3.7 N BASOPHIL % (test code = BA%) 0.4 % 0.0-2.0 N NUCLEATED RBC % (test code = 0.0 % 0-0 N NRBC%) NEUTROPHIL # (test code = NT#) 14.13 x10 3/uL 2.0-7.6 H IMMATURE GRANULOCYTE # (test 0.11 x10 3/uL 0.00-0.03 H code = IG#) LYMPHOCYTE # (test code = LY#) 1.30 x10 3/uL 1.0-3.8 N MONOCYTE # (test code = MO#) 2.05 x10 3/uL 0.1-0.8 H EOSINOPHIL # (test code = EO#) 0.10 x10 3/uL 0.0-0.2 N BASOPHIL # (test code = BA#) 0.07 x10 3/uL 0.0-0.2 N NUCLEATED RBC # (test code = 0.00 x10 3/uL 0.0-0.1 N NRBC#) MANUAL DIFF REQUIRED (test NO code = MDIFF) - [facility]/[id number] 00:00:00 [facility] : 1950 Sex: MName: JEAN CLAUDE WALLACE [facility] : 1950 Age/S: 72 / M [address] [place] [address] Blvd Unit #: [id number] Loc: [place] [address] Phys: Clara Mary CNP Acct: [id number] Dis Date: Status: ADM IN PHONE #: [phone] Exam Date: 12/05/2022 1148 FAX #: [phone] Reason: R/O RIGHT GROIN HEM ATOMA/PSEUDOANEURYSM EXAMS: CPT CODE: [id number] DUP VEIN UNI/LTD 60494 PROCEDURE INFORMATION: Exam: US Duplex Right Lower Extremity Veins, Limited Exam date and time: 12/05/2022 10:54 AM Age: 72 years old Clinical indication: Injury or trauma; Other: Surgery; Wound, open; Right; Lower extremity, hip and thigh level; Vessel not specified; Additional info: R/O right groin hematoma/pseudoaneurysm TECHNIQUE: Imaging protocol: Real-time duplex ultrasound of the right extremity with 2-D beltran scale, color Doppler flow and spectral waveform analysis including responses to compression and other maneuvers (when performed) with image documentation. Limited exam was focused on the right lower extremity veins. COMPARISON: No relevant prior studies available. FINDINGS: Limited groin vasculature assessment by overlying bandages. No fluid collection noted. Patent right lower extremity venous system with normal compressibility. IMPRESSION: 1. Limited right groin assessment by overlying bandages. Unable to assessfor pseudoaneurysm or fistula at this moment. 2. Negative for soft tissue hematoma. 3. Patent right lower extremity venous system with normal compressibility. at 1237 Reported and signed by: Clinton Santos M.D. CC: Johnnie Kulkarni MD Technologist: Alexa Schmidt Trnscb Date/Time: 12/05/2022(1237) [email or web address] Orig Print D/T: S: 12/05/2022 (1237) Probe: PAGE 1 Signed Report- XR CHEST 1 [id number] 00:00:00 [facility] : 1950 Sex: MFAX: Kishan Mac [phone] [place]: St: ADM Name: JEAN CLAUDE WALLACE [facility] : 1950 Age/S:72/M [address] [place] [address] Bl Unit #: [id number] Loc: [address] [place] [address] Phys: Kishan Kulkarni MD Acct: [id number] Dis Date: Status: ADM IN PHONE #: [phone] Exam Date: 12/05/2022 0744 FAX#: [phone] Reason: leukocytosis EXAMS: CPT CODE: [id number] XR CHEST 1 V 34237 PROCEDURE INFORMATION: Exam: XR Chest Exam date and time: 12/05/2022 6:19 AM Age: 72 years old Clinical indication: Other: Leukocytosis TECHNIQUE: Imaging protocol: Radiologic exam of the chest. Views: 1 view. COMPARISON: No relevant prior studies available. FINDINGS: Tubes, catheters and devices: Right neck central catheter tip is positioned over the SVC region. Lungs: Mild bilateral perihilar and basilar interstitial lung opacities, suggesting pulmonary edema versus infiltrates. The peripheral lungs are otherwiseclear. No consolidation. Pleural spaces: No pleural effusion. No pneumothorax. Heart/Mediastinum: Cardiac silhouette appears mildly enlarged. Vasculature: Moderate atherosclerotic calcification demonstrated within the aorta. Bones/joints: Generalized bony degenerative changes. [place] screw hardware overlies the proximal right humerus, suggesting previous rotator cuff repair. IMPRESSION: 1. Mild enlarged cardiac silhouette. 2. Mild interstitial pulmonary edema versus infiltrates. at 0843 Reported and signed by: Bruno Tineo M.D. CC: Kishan Kulkarni MD Technologist: RT Irene(R) Trnscrd Date/Time/By: 12/05/2022 (43) : By: [email or web address] Orig Print D/T: S: 12/05/2022 (0843) PAGE 1 Signed ReportLABORATORY 2017-07-06 21:14:00 Test Item Value Reference Range Interpretation Comments Blood Glucose, Capillary (test code = 118 74-106 Blood Glucose, Capillary) [id number] 20:30:00 Test Item Value Reference Range Interpretation Comments Blood Glucose, Capillary (test code = 78 74-106 Blood Glucose, Capillary) [facility] [id number] 14:20:00 Test Item Value Reference Range Interpretation Comments Blood Glucose, Capillary (test code = 96 74-106 Blood Glucose, Capillary) [facility] [id number] 15:09:00 Test Item Value Reference Range Interpretation Comments Blood Glucose, Capillary (test code = 192 74-106 H Blood Glucose, Capillary) [facility] [id number] 11:10:00 Test Item Value Reference Range Interpretation Comments Blood Glucose, Capillary (test code = 157 74-106 H Blood Glucose, Capillary) [facility] Date/Time Note Provider Source 2022-12-13 [facility] 22:50:00-00:00 [facility] Discharge Summary REPORT#:[id number] REPORT STATUS: Signed DATE:12/13/22 TIME: 2249 PATIENT: JEAN CLAUDE WALLACE UNIT #: [id number] ROOM/BED: 3301 : 52 AGE: 72 SEX: M ATTEND: Doc Meeks MD ADM AUTHOR: Nisha Meeks MD * ALL edits or amendments must be made on the [employer]/computer document * PCP PCP PCP: PCP: No Primary or Family Physician Discharge to: home General Information Problem List/A P: 1. Bradycardia A P - Initially thought to be secondary to hyperkal emia but this has been effectively treated and currently patient contin ues to be bradycardic with an idioventricular rhythm. -At home patient was taking beta-blockers and digoxin but this was discontinued when he was admitted to the hospital 3 days ago. -EP consult for possible pacemaker placement -Currently on dopamine to help increase his hea rt rate 2. Acute renal failure (ARF) A P Believed to be secondary to Bactrim invasion de bility depletion. Patient at home was taking Lasix and also oral potassium. -Nephrology consult for continuation of hemodia lysis. -Patient have a temporary dialysis catheter on the right IJ. 3. Leukocytosis A P Patient denies any fever or chills. No physical signs of infection. -UA done as a look [place] yesterday is cons istent with UTI. Chest x-ray was negative. -Chest x-ray and UA will be repeated here. We w ill send urine culture as needed. -Patient started on Rocephin 1 g IV gill ry 24 hours pending results of the UA. -Continue to monitor WBCs 4. JAMEY (obstructive sleep apnea) A P Continue with home CPAP 5. DM type 2 (diabetes mellitus, type 2) A P Resume insulin sliding scale and Lantus insulin . We will hold metformin. 6. Dyslipidemia A P Resume home medication. 7. Afib A P Currently has a idioventricular rhythm. -EP was consulted -Patient was on Pradaxa at home which has been held since prior to his surgery Date of admission: Observation Start Date: Date of admission: 12/05/22 Discharge date: 12/09/22 Admission diagnosis: bradycardia Discharge diagnosis: bradycardia status post pacemaker STEWART, resolved Hospital course: 72-year-old man with past medical history of ana betes, dyslipidemia, atrial fibrillation and obstructive sleep apnea that wa s admitted to [facility] 3 days ago when his find out to have severe hyperkalemia and acute renal failure on routine blood work done with [facility] primary care this past Wednesday. Patient underwent umbilical hernia re pair 9 days ago without any complication. Patient was discharged home on Grecia trim prophylactically. Wants to sign out to have severe hyperkalemia and acut e renal failure this past Wednesday patient was admitted to the hospital. Patient was found to have severe bradycardia with hear t rate in the 20s and 30s the initial thought to be secondary to his hyperkalemia and acute renal fa ilure. Patient required hemodialysis to treat his hyperkalemia a nd after hyperkalemia was resolved his heart rate did not improve. Has been thought jeremias t the reason for the acute renal failure is due to Bactrim in addition to b owling depletion. Patient was transferred here to be evaluated for pacemaker p lacement. Patient currently does not have any complaints. Seen by Cardiology, EP and ICC. received Pacemak er. Also seen to have STEWART for which he received HD. it was due to bactrim. was seen to have renal recovery not needing any more HD. nurse Pulled the trialysis catheter and was sent home. Consultants: cardiology, critical/malariologist, e lectrophysiology, nephrology Med Rec PCP PCP: PCP: No Primary or Family Physician Med Rec Discharge meds: Stop taking the following medications: FLUDROCORTISONE ACETATE (FLORINEF) 0.1 MG TAB 0.1 MILLIGRAM ORAL DAILY. DEXTROSE 10%-WATER (D10W) 10 % IV.SOLN 125 MILLILITERS INTRAVENOUS DIRECTED. as nee ded for HYPOGLYCEMIA INSULIN REGULAR (NovoLIN R) 100 UNIT/ML VIAL 0 UNITS SUBCUTANEOUS BEFORE MEALS AND AT BEDTIM E. ONDANSETRON (ONDANSETRON) 4 MG/2 ML VIAL 4 MILLIGRAM INTRAVENOUS EVERY 6 HOURS NEEDED . as needed for NAUSEA AND VOMITING POTASSIUM CHLORIDE ER (KLOR-CON 10) 10 MEQ TAB.S A 10 MILLIEQUIVALENT ORAL DAILY. FUROSEMIDE (LASIX) 40 MG TAB 40 MILLIGRAM ORAL DAILY. GlipiZIDE/METFORMIN HCL (GLIPIZIDE-METFORMIN 2.5 -500 MG) 2.5 MG-500 MG TAB 1 TABLET ORAL TWICE DAILY WITH MEALS. DIGOXIN (LANOXIN) 250 MCG TAB 0.25 MILLIGRAM ORAL DAILY. LISINOPRIL (ZESTRIL) 40 MG TAB 40 MILLIGRAM ORAL DAILY. ALLOPURINOL (ZYLOPRIM) 300 MG TAB 300 MILLIGRAM ORAL BEDTIME. LIRAGLUTIDE (VICTOZA (6mL)) 0.6 MG/0.1 ML (18 MG /3 ML) PEN.INJCTR 1.25 MILLILITERS SUBCUTANEOUS DAILY. Continue taking these medications: ACETAMINOPHEN (TYLENOL) 325 MG TAB 650 MILLIGRAM ORAL EVERY 6 HOURS NEEDED. as needed for OCHOA AND FEVER diphenhydrAMINE (BENADRYL) 25 MG TAB 25 MILLIGRAM ORAL BEDTIME. as needed for INSOMN IA INSULIN GLARGINE (LANTUS) 100 UNIT/ML VIAL 10 UNITS SUBCUTANEOUS TWICE DAILY. ROSUVASTATIN (CRESTOR) 20 MG TAB 20 MILLIGRAM ORAL BEDTIME. CARVEDILOL (COREG) 25 MG TAB 25 MILLIGRAM ORAL TWICE DAILY WITH MEALS. FENOFIBRATE (FENOFIBRATE) 48 MG TAB 67 MILLIGRAM ORAL DAILY. Start taking the following new medications: DOXYCYCLINE MONOHYDRATE (MONODOX) 100 MG CAP 100 MILLIGRAM ORAL EVERY 12 HOURS. Qty = 14 No Refills ALLOPURINOL (ZYLOPRIM) 100 MG TAB 200 MILLIGRAM ORAL BEDTIME. Qty = 60 No Refills The following medications have been changed: Old: ALBUTEROL (ALBUTEROL 2.5 MG/3 ML (75mL)) 2.5 MILLIGRAM NEB RT - EVERY 4 HOURS. New: ALBUTEROL (ALBUTEROL 2.5 MG/3 ML (75mL)) 2.5 MG/ 3 ML (0.083 %) NEB 2.5 MILLIGRAM NEB RT - EVERY 4 HOURS. as needed for SOB Old: DABIGATRAN (PRADAXA) 150 MILLIGRAM ORAL DAILY. New: DABIGATRAN (PRADAXA) 150 MG CAP 150 MILLIGRAM ORAL DAILY. Instructions: RESUME TOMORROW Objective VS/I O Last Documented: Result Date Time Pulse Ox 94 12/09 1115 B/P 161/87 12/09 1115 B/P Mean 117 12/09 1115 Pulse 61 12/09 1115 Resp 18 12/09 1115 Temp 97.3 12/09 0800 O2 Delivery Room air 12/09 0400 PATIENT WEIGHT: Weight (lb): 248 Weight (oz): 10.9 Weight (kg): 112.491 General appearance: no acute distress Head/Eyes: atraumatic, clear cornea, EOMI, PERRL A Neck: no JVD, supple/no meningismus Cardiovascular: regular rate rhythm, no gallop, no murmur, no rub Respiratory: clear to auscultation, no distress GI: soft, non-tender, no guarding, no rebound, n o distention Extremities: no edema-all extremities Discharge Instructions PCP PCP: PCP: No Primary or Family Physician )( Discharge to: Home/Self Care Discharge Instructions Additional Discharge Routines: PCP Follow-Up, Co nsultant Follow-Up )( Diet: Cardiac )( Activity: As Tolerated Discharge management: greater than 30 mins Follow-up Appointments PCP follow up: PCP: No Primary or Family Physician PCP follow up timeframe: In 1-2 weeks Consulting provider 1: Provider 1: Luis Haque MD Specialty: CardiologyInterventional Consult follow up timeframe: In 1-2 weeks Special instructions: F/UP IN ONE WEEK Consulting provider 2: Provider 2: Pedro Calix MD Specialty: CardiologyInterventional Follow up timeframe: In 1-2 weeks Special instructions: F/UP IN 2 WEEKS Consulting provider 3: Provider 3: Jonah Velazco MD Specialty: Nephrology Follow up timeframe: In 1-2 weeks Special instructions: F/UP IN 2 WEEKS Consulting provider 4: Provider 4: Miguelangel Mari MD Specialty: ELECTROPHYSIOLOGY CAR DELIVERER Follow up timeframe: In 1-2 weeks Special instructions: FOLLOW UP SCHEDULED Quality: Discharge Advanced Care Plan 65 or Older Discussed with: patient Current Medications Current medication review: I attest that the foregoing medication list in t he medical record is true, accurate, and complete to the best of my knowled ge. Electronically Signed by Nisha Meeks MD on 0 12/13/22 at 2300 RPT #:[id number] END OF REPORT 2022-12-13 [facility]00[facility]00 [facility] REPORT#:[id number] REPORT STATUS: Signed DATE:12/13/22 TIME: 2245 PATIENT: JEAN CLAUDE WALLACE UNIT #: [id number] ROOM/BED: [place] [address] : [birth year] AGE: 72 SEX: M ATTEND: Doc Meeks MD ADM AUTHOR: Nisha Meeks MD * ALL edits or amendments must be made on the [employer]/computer document * Subjective Chief complaint: late entry progress note for december 08 got pacemaker yesterday HPI: 72-year-old man with past medical history of ana betes, dyslipidemia, atrial fibrillation and obstructive sleep apnea that wa s admitted to [facility] 3 days ago when his find out to have severe hyperkalemia and acute renal failure on routine blood work done with [facility] primary care this past Wednesday. Patient underwent umbilical hernia re pair 9 days ago without any complication. Patient was discharged home on Grecia trim prophylactically. Wants to sign out to have severe hyperkalemia and acut e renal failure this past Wednesday patient was admitted to the hospital. Patient was found to have severe bradycardia with hear t rate in the 20s and 30s the initial thought to be secondary to his hyperkalemia and acute renal fa ilure. Patient required hemodialysis to treat his hyperkalemia a nd after hyperkalemia was resolved his heart rate did not improve. Has been thought jeremias t the reason for the acute renal failure is due to Bactrim in addition to b owling depletion. Patient was transferred here to be evaluated for pacemaker p lacement. Patient currently does not have any complaints. Objective General VS/I O: PATIENT WEIGHT: Weight (lb): 248 Weight (oz): 10.9 Weight (kg): 112.491 Physical Exam General appearance: no acute distress Head/Eyes: atraumatic, EOMI, normal conjunctiva/sclera, normal eyelids/periorb., normocephalic ENT: moist mucosal membranes Neck: full range of motion, no bruit/NL carotids , no JVD Cardiovascular: bradycardic, normal heart sounds Respiratory: aerating well, clear to auscultatio n, symmetric expansion, no distress Abdomen: non-tender, normal bowel sounds, soft, no distention, no guarding Extremities: moves all, no cyanosis, no edema 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, oriented X 3, normal speech, n o motor deficits, no sensory deficits Skin: intact, normal color, no rash Treatment Prophylaxis Treatment Prophylaxis Drain(s)/tube(s): Drain(s)/tube(s): urinary catheter Diagnosis, Assessment Plan Problem List/A P: 1. Bradycardia - Initially thought to be secondary to hyperkal emia but this has been effectively treated and currently patient contin ues to be bradycardic with an idioventricular rhythm. -At home patient was taking beta-blockers and digoxin but this was discontinued when he was admitted to the hospital 3 days ago. -EP consult for possible pacemaker placement -Currently on dopamine to help increase his hea rt rate 2. Acute renal failure (ARF) Believed to be secondary to Bactrim invasion de bility depletion. Patient at home was taking Lasix and also oral potassium. -Nephrology consult for continuation of hemodia lysis. -Patient have a temporary dialysis catheter on the right IJ. 3. Leukocytosis Patient denies any fever or chills. No physical signs of infection. -UA done as a look [place] yesterday is cons istent with UTI. Chest x-ray was negative. -Chest x-ray and UA will be repeated here. We w ill send urine culture as needed. -Patient started on Rocephin 1 g IV gill ry 24 hours pending results of the UA. -Continue to monitor WBCs 4. JAMEY (obstructive sleep apnea) Continue with home CPAP 5. DM type 2 (diabetes mellitus, type 2) Resume insulin sliding scale and Lantus insulin . We will hold metformin. 6. Dyslipidemia Resume home medication. 7. Afib Currently has a idioventricular rhythm. -EP was consulted -Patient was on Pradaxa at home which has been held since prior to his surgery Consultants: cardiology, critical/malariologist, e lectrophysiology, nephrology Free Text DxA P Notes Free text DxA P notes: Bradycardia Cardiology and Ep seen status post ppm now on doxy till december 15 [facility] renal renal wants to watch him one more day to make bernal re about the renal recovery no need for HD at this time not on bactrim anymore UTI urine culture negative dc IV Rocehin HTN monitor for now follow labs Quality: Gen Med Crit Care VTE Prophylaxis VTE prophylaxis initiated: yes Current Medications Current medication review: I attest that the foregoing medication list in t he medical record is true, accurate, and complete to the best of my knowled ge. Advanced Care Plan 65 or Older Discussed with: patient Discussion included: living will (yes), power of ip technology transactions attorney (yes), code status ( full code) Electronically Signed by Nisha Meeks MD on 0 12/13/22 at 2250 RPT #:[id number] END OF REPORT 2022-12-09 [facility] 10:25:00-00:00 [facility] Cardiology Progress Note REPORT#:[id number] REPORT STATUS: Signed DATE:12/09/22 TIME: 1025 PATIENT: JEAN CLAUDE WALLACE UNIT #: [id number] ROOM/BED: [place] [address] : 52 AGE: 72 SEX: M ATTEND: Doc Meeks MD ADM AUTHOR: Penny Toribio CNP * ALL edits or amendments must be made on the [employer]/computer document * Subjective Patient reports: No: complaints. Objective General VS/I O: 24 hour I O ending at 0700: 12/09 0700 08 1900 Intake Total 240 1250.00 Output Total 1400 1800 Balance -1160 -550.00 Intake, IV 50.00 Intake, Oral 240 1200 Number 1 Bowel Movements Number Voids 4 1 Output, Urine 1400 1800 Vital Signs: Date Time Temp Pulse Resp B/P B/P Pulse O2 O2 F low FiO2 Mean Ox Delivery Rate 12/09 0840 69 21 152/95 119 96 08/02 0800 36.3 62 17 169/80 114 95 08/02 0700 74 16 150/73 104 95 08/02 0630 74 13 147/74 104 94 08/02 0600 61 14 156/72 103 94 08/02 0530 64 16 157/73 105 94 08/02 0500 69 15 155/74 107 95 08/02 0431 85 18 146/78 107 96 08/02 0400 36.9 Room air 08/02 0400 61 15 153/77 107 95 08/02 0330 75 15 159/80 111 94 08/02 0300 69 13 149/75 103 94 08/02 0230 82 13 152/71 102 94 08/02 0200 64 16 150/74 105 94 08/02 0130 81 12 155/72 103 94 08/02 0100 60 13 151/70 100 95 08/02 0030 75 13 162/74 106 93 08/02 0000 36.8 Room air 08/02 0000 60 13 152/72 103 94 08/01 2330 65 15 157/74 107 94 08/01 2300 64 13 159/77 111 95 08/ 2245 68 14 157/76 109 97 08/01 2230 81 19 169/79 113 96 08/ 2215 64 21 158/75 108 95 08/ 2200 84 15 159/76 109 94 08/ 2141 65 23 176/82 118 97 08/ 2138 83 21 174/81 116 96 08/ 2130 70 20 169/77 111 95 08/ 2102 62 20 166/78 112 96 08/ 2100 61 21 171/79 113 96 08/1999 36.9 Room air 08 2000 81 21 161/83 115 96 08/ 1921 69 18 165/79 114 98 08/ 1900 73 20 165/78 112 98 08/ 1600 36.8 08 1200 36.8 08/ 1200 66 22 178/94 127 96 08/ 1100 61 17 155/81 111 96 PATIENT WEIGHT: Weight (lb): 248 Weight (oz): 10.9 Weight (kg): 112.491 Medications: Active Meds + DC'd Last 24 Hrs Magnesium Sulfate (MAGNESIUM SULFATE 2GM/SWFI 50 ML) 50 ML ONCE ONE IV Hydralazine HCl (APRESOLINE) 10 MG Q6H PRN PRN I V Carvedilol (COREG) 12.5 MG BID@0900,2100 PO Doxycycline Monohydrate (DOXYCYCLINE MONOHYDRATE ) 100 MG Q12HR PO Senna/Docusate Sodium (SENOKOT S) 1 TAB BID 9A 5 P PO Hydrocodone Bitart/Acetaminophen (NORCO 5/325) 2 TAB Q4H PRN PRN PO Mupirocin (BACTROBAN 2% 22 GM OINTMENT) 1 APPLIC BID NASAL Allopurinol (ZYLOPRIM) 200 MG BEDTIME PO Atorvastatin Calcium (LIPITOR) 40 MG 2100 PO Albumin Human (ALBUMINAR-25%) 12.5 GM ASDIR PRN IV Heparin Sodium (Porcine) (HEPARIN SODIUM) 3,000 UNIT ASDIR PRN DIALYSIS Lidocaine HCl (LIDOCAINE HCL/PF) 0.5 ML ASDIR MT N I-DERMAL (CKD) Mannitol (Mannitol 20%) 12.5 GM ASDIR PRN IV Sodium Chloride (SODIUM CHLORIDE 0.9%) 2,000 ML ASDIR PRN IV Sodium Chloride (SODIUM CHLORIDE) 5 ML ASDIR PRN IV Sodium Chloride (SODIUM CHLORIDE) 10 ML ASDIR MT N IV Sodium Chloride (SODIUM CHLORIDE 0.9%) 250 ML DIR PRN IV Fludrocortisone Acetate (FLORINEF ACETATE) 0.1 M G DAILY PO Insulin Glargine (Semglee) 10 UNIT BID SUBQ Insulin Human Lispro (HUMALOG) 0 AC HS SUBQ Acetaminophen (TYLENOL) 650 MG Q4H PRN PRN PO Dextrose/Water (DEXTROSE 10% IN WATER) 125 ML DIR PRN IV (CKD) Dextrose/Water (DEXTROSE 10% IN WATER) 250 ML DIR PRN IV (CKD) Docusate Sodium (COLACE) 100 MG BID PRN PRN PO Glucagon (GLUCAGON) 1 MG ASDIR PRN IM Loperamide HCl (IMODIUM CAPSULE) 2 MG Q4H PRN MT N PO Ondansetron HCl (ZOFRAN) 4 MG Q4H PRN PRN IV Status post: PPM Pacemaker: permanent Physical Exam General appearance: alert, awake Neck: full range of motion, non-tender, no JVD Cardiovascular: CV assessment: regular rate and rhythm, paced Respiratory: clear to auscultation, no distress Abdomen: distended Genitourinary: no flank pain, no urinary cathete r Lower extremity: LE assessment: normal capillary refill, no jared a Musculoskeletal: normal inspection 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, oriented X 3, normal speech Skin: dry, intact, normal color Psychiatry: normal affect, normal judgment/insig ht, normal mood Results Findings/Data: Laboratory Tests 12/09 12/09 12/08 12/08 12/08 0742 0434 1952 1649 1128 Chemistry Sodium (134 - 147 mEq/L) 134 Potassium (3.4 - 5.0 mEq/L) 3.8 Chloride (100 - 108 mEq/L) 101 Carbon Dioxide (21 - 33 mEq/l) 25 Anion Gap (0 - 20) 12 BUN (7 - 18 mg/dL) 26 H Creatinine (0.6 - 1.3 mg/dL) 1.8 H Glomerular Filtr Rate (70 - 80) 40.0 L Glucose (70 - 110 mg/dL) 229 H POC Glucose (70 - 110 MG/DL) 171 H 217 H 202 H 171 H Calcium (8.0 - 10.5 mg/dL) 8.8 Ionized Calcium Ly (1.09 - 1.30 1.11 MMOL/L) Phosphorus (2.5 - 4.9 MG/DL) 2.9 Magnesium (1.80 - 2.40 mg/dL) 1.53 L Laboratory Tests 12/09 0434 Hematology WBC (4.5 - 11.0 x10 3/uL) 7.7 RBC (4.00 - 5.60 x10 6/uL) 4.07 Hgb (12.5 - 16.9 g/dL) 12.5 Hct (37.5 - 50.7 %) 36.9 L MCV (81.0 - 99.0 fL) 90.7 MCH (27.0 - 33.0 pg) 30.7 MCHC (33.0 - 37.0 g/dL) 33.9 RDW (11.5 - 14.5 %) 14.0 Plt Count (150 - 400 x10 3/uL) 191 MPV (7.0 - 9.0 fL) 11.3 H Neut % (Auto) (56.0 - 77.0 %) 56.9 Lymph % (Auto) (14.0 - 32.0 %) 15.4 Carlisle % (Auto) (4.8 - 9.0 %) 17.0 H Eos % (Auto) (0.3 - 3.7 %) 9.2 H Baso % (Auto) (0.0 - 2.0 %) 0.7 Neut # (Auto) (2.0 - 7.6 x10 3/uL) 4.36 Lymph # (Auto) (1.0 - 3.8 x10 3/uL) 1.18 [place] # (Auto) (0.1 - 0.8 x10 3/uL) 1.30 H Eos # (Auto) (0.0 - 0.2 x10 3/uL) 0.70 H Baso # (Auto) (0.0 - 0.2 x10 3/uL) 0.05 Abs Immat Gran (auto) (0.00 - 0.03 x10 3/uL) 0. 06 H Add Manual Diff NO Immature Gran % (0.0 - 2.0 %) 0.8 Nucleated RBC % (0 - 0 %) 0.0 Nucleated RBCs # (Man) (0.0 - 0.1 x10 3/uL) 0.0 0 Laboratory Tests 12/09 0434 Chemistry Magnesium (1.80 - 2.40 mg/dL) 1.53 L Radiology data: Recent Impressions: RADIOLOGY - XR CHEST 1 V 12/09 0615 Report Impression - Status: SIGNED Entered: 12/09/2022 06 IMPRESSION: Stable examination. Impression By: [email or web address] - Sudheer Pate Results: labs reviewed, vital signs reviewed, [facility] personally rev'd Diagnosis, Assessment Plan Plan discussed with: patient, spouse/partner, co chaparro CALLE, nurse Free Text DxA P Notes Free Text DxA P Notes: 72 YO male with MHx of paroxysmal atrial fibrill ation (on Pradaxa, Coreg, and Digoxin), diastolic CHF (on Lasix and potassium) , DM, HLD, HTN, JAMEY (on CPAP) who is here due to symptomatic bradycardia, acut e kidney failure, and hyperkalemia. We are consulted for cardiac evalu ation. 1. Symptomatic bradycardia s/p PPM * Echo reviewed - normal EF * s/p PPM ([place]) 2. Atrial fibrillation with sick sinus syndrome - paced * s/p PPM * hold Pradaxa for 72 hours - resume tomorrow * replace low magnesium 3. Acute kidney injury * s/p acute Hemodialysis * per nephrology * creat trending down, 1.8 today 4. Hyperkalemia - resolved 5. Diabetes mellitus * manage per primary team 6. Hypertension * BP remains elevated * up coreg to 25 mg BID Doing well. Ok to DC from cardiology. outpatient follow-up with Dr. Haque next week instructed patient to resume Pradaxa tomorrow. MDM by Dr. Calix. at 1843 Electronically Signed by Pedro Calix MD on at 6865 RPT #:[id number] END OF REPORT 2022-12-08 [facility] 23:27:00-00:00 [facility] ([facility]) Nephrology Progress Note REPORT#:[id number] REPORT STATUS: Signed DATE:12/08/22 TIME: 2326 PATIENT: JEAN CLAUDE WALLACE UNIT #: [id number] ROOM/BED: 3307-1 : 52 AGE: 72 SEX: M ATTEND: Doc Meeks MD ADM AUTHOR: Jonah Velazco MD * ALL edits or amendments must be made on the [employer]/computer document * Subjective Chief complaint: Patient seen and examind. He is clinically uncha nged. s/p dual chamber pacemaker placement for complete heart block. Objective General VS/I O: Vital Signs: Date Time Temp Pulse Resp B/P B/P Pulse O2 O2 F low FiO2 Mean Ox Delivery Rate 12/08 2000 36.9 Room air 08/ 1600 36.8 08/ 1200 36.8 08/ 1200 66 22 178/94 127 96 08/01 1100 61 17 155/81 111 96 08/01 1000 63 16 164/77 111 94 08/01 0900 69 19 172/84 121 94 08/01 0800 36.2 08/01 0800 71 17 151/87 106 95 08/01 0730 68 11 141/78 104 95 08/01 0700 62 14 150/74 104 95 08/01 0600 65 12 149/82 107 94 08/01 0530 65 13 141/69 99 93 08/01 0500 62 13 150/79 106 93 08/01 0431 65 13 149/70 101 95 08/01 0401 67 18 157/73 105 96 08/01 0400 36.9 08/01 0300 62 17 153/70 101 95 08/01 0201 73 15 147/68 98 96 08/01 0100 62 14 151/71 102 93 08/01 0035 62 14 146/76 104 93 08/01 0000 37.4 Room air 08/ 0000 67 15 154/72 104 95 12/07 2330 63 128/67 90 92 24 hour I O ending at 0700: 12/08 0700 12/07 1900 Intake Total 480 580.00 Output Total 1100 1850 Balance -620 -1270.00 Intake, IV 100.00 Intake, Oral 480 480 Output, 1000 Hemodialysis Output, Urine 1100 850 PATIENT WEIGHT: Weight (lb): 248 Weight (oz): 10.9 Weight (kg): 112.800 Medications Active Meds + DC'd Last 24 Hrs Hydralazine HCl (APRESOLINE) 10 MG Q6H PRN PRN I V Carvedilol (COREG) 12.5 MG BID@0900,2100 PO Doxycycline Monohydrate (DOXYCYCLINE MONOHYDRATE ) 100 MG Q12HR PO Senna/Docusate Sodium (SENOKOT S) 1 TAB BID 9A 5 P PO Calcium Gluconate (Calcium Gluconate 1 GM/NS 50 mL (B2)) 50 ML ONCE ONE IV (DC) Hydrocodone Bitart/Acetaminophen (NORCO 5/325) 2 TAB Q4H PRN PRN PO Mupirocin (BACTROBAN 2% 22 GM OINTMENT) 1 APPLIC BID NASAL Isoproterenol HCl (isoproterenol HCL) 1 MG TITRA TE IV (DC) Sodium Chloride (SODIUM CHLORIDE 0.9%) 500 ML Allopurinol (ZYLOPRIM) 200 MG BEDTIME PO Atorvastatin Calcium (LIPITOR) 40 MG 2100 PO Albumin Human (ALBUMINAR-25%) 12.5 GM ASDIR PRN IV Heparin Sodium (Porcine) (HEPARIN SODIUM) 3,000 UNIT ASDIR PRN DIALYSIS Lidocaine HCl (LIDOCAINE HCL/PF) 0.5 ML ASDIR MT N I-DERMAL (CKD) Mannitol (Mannitol 20%) 12.5 GM ASDIR PRN IV Sodium Chloride (SODIUM CHLORIDE 0.9%) 2,000 ML ASDIR PRN IV Sodium Chloride (SODIUM CHLORIDE) 5 ML ASDIR PRN IV Sodium Chloride (SODIUM CHLORIDE) 10 ML ASDIR MT N IV Sodium Chloride (SODIUM CHLORIDE 0.9%) 250 ML DIR PRN IV Fludrocortisone Acetate (FLORINEF ACETATE) 0.1 M G DAILY PO Insulin Glargine (Semglee) 10 UNIT BID SUBQ Insulin Human Lispro (HUMALOG) 0 AC HS SUBQ Ceftriaxone Sodium (ROCEPHIN 1000MG VIAL) 1,000 MG Q24H IV (DC) Sodium Chloride (SODIUM CHLORIDE) 10 ML Acetaminophen (TYLENOL) 650 MG Q4H PRN PRN PO Dextrose/Water (DEXTROSE 10% IN WATER) 125 ML DIR PRN IV (CKD) Dextrose/Water (DEXTROSE 10% IN WATER) 250 ML DIR PRN IV (CKD) Docusate Sodium (COLACE) 100 MG BID PRN PRN PO Glucagon (GLUCAGON) 1 MG ASDIR PRN IM Loperamide HCl (IMODIUM CAPSULE) 2 MG Q4H PRN MT N PO Ondansetron HCl (ZOFRAN) 4 MG Q4H PRN PRN IV Dopamine HCl/Dextrose (DOPamine 400MG/D5W 250ML) 250 ML ASDIR IV (DC) Dietitian nutrition assessment The data set between the solid lines has been im ported from the dietitian's assessment. BMI Calculated: 35.7 Nutrition related diagnosis: Nutrition diagnosis details: Nutrition problem: Nutrition etiology: Nutrition signs and symptoms: Nutrition prescription: Dietitian name: Assessment completed: Nutrition provider diagnosis: underweight Physical Exam General appearance: alert, awake Head/eyes: atraumatic, EOMI, normocephalic ENT: dry mucous membranes, moist mucous membrane s, normal nose Neck: non-tender, supple/no meningismus, no brui t/NL carotids, no JVD, no lymphadenopathy Cardiovascular: normal heart sounds, regular rat e and rhythm, pedal pulses present, no murmur Respiratory: aerating well, clear to auscultatio n Abdomen: non-tender, soft, no distention Extremities: non-tender, normal inspection, no e linette Results Findings/Data: Laboratory Tests 12/08 12/08 12/08 12/08 1952 1649 1128 0348 Chemistry Sodium (134 - 147 mEq/L) 131 L Potassium (3.4 - 5.0 mEq/L) 4.3 Chloride (100 - 108 mEq/L) 97 L Carbon Dioxide (21 - 33 mEq/l) 26 Anion Gap (0 - 20) 12 BUN (7 - 18 mg/dL) 27 H Creatinine (0.6 - 1.3 mg/dL) 2.2 H Glomerular Filtr Rate (70 - 80) 31.4 L Glucose (70 - 110 mg/dL) 172 H POC Glucose (70 - 110 MG/DL) 217 H 202 H 171 H Calcium (8.0 - 10.5 mg/dL) 8.2 Ionized Calcium Ly (1.09 - 1.30 MMOL/L) 1.07 L Phosphorus (2.5 - 4.9 MG/DL) 3.0 Magnesium (1.80 - 2.40 mg/dL) 1.71 L Laboratory Tests 12/08 0348 Hematology WBC (4.5 - 11.0 x10 3/uL) 5.9 RBC (4.00 - 5.60 x10 6/uL) 4.17 Hgb (12.5 - 16.9 g/dL) 12.8 Hct (37.5 - 50.7 %) 38.3 MCV (81.0 - 99.0 fL) 91.8 MCH (27.0 - 33.0 pg) 30.7 MCHC (33.0 - 37.0 g/dL) 33.4 RDW (11.5 - 14.5 %) 14.4 Plt Count (150 - 400 x10 3/uL) 158 MPV (7.0 - 9.0 fL) 11.2 H Neut % (Auto) (56.0 - 77.0 %) 49.4 L Lymph % (Auto) (14.0 - 32.0 %) 19.3 Carlisle % (Auto) (4.8 - 9.0 %) 23.6 H Eos % (Auto) (0.3 - 3.7 %) 5.1 H Baso % (Auto) (0.0 - 2.0 %) 1.4 Neut # (Auto) (2.0 - 7.6 x10 3/uL) 2.92 Lymph # (Auto) (1.0 - 3.8 x10 3/uL) 1.14 [place] # (Auto) (0.1 - 0.8 x10 3/uL) 1.39 H Eos # (Auto) (0.0 - 0.2 x10 3/uL) 0.30 H Baso # (Auto) (0.0 - 0.2 x10 3/uL) 0.08 Abs Immat Gran (auto) (0.00 - 0.03 x10 3/uL) 0. 07 H Add Manual Diff NO Immature Gran % (0.0 - 2.0 %) 1.2 Nucleated RBC % (0 - 0 %) 0.0 Nucleated RBCs # (Man) (0.0 - 0.1 x10 3/uL) 0.0 0 Radiology data: Recent Impressions: RADIOLOGY - XR CHEST 1 V 12/08 552 Report Impression - Status: SIGNED Entered: 12/08/2022718 IMPRESSION: 1. Stable chest with findings suggestive of mild pulmonary edema or infection. 2. Stable moderate cardiomegaly. Impression By: GinoPKYesenia Boateng Results: labs reviewed Treatment Prophylaxis Treatment Prophylaxis Drain(s)/tube(s): Drain(s)/tube(s): urinary catheter Diagnosis, Assessment Plan Free Text A P: 1. Acute renal failure on chronic kidney disease , likely due to acute interstitial nephritis from exposure to Bactrim for 1 week. The patient is now off of Bactrim and status post acute hemodialysi s x2 doses. Will monitor for renal recovery. Hopefully, no further need for a cute HD. 2. Hyperkalemia. Corrected with HD. 3. Metabolic acidosis, will correct on hemodialy sis. 4. Bradycardia/ Sick Sinus Syndrome/ Complete he art block. s/p dual chamber pacemaker placement. 5. Type 2 diabetes mellitus. 6. Obstructive sleep apnea. 7. Atrial fibrillation. 8. Hyponatremia. We will place the patient on 1. 5 liter free water restriction. 9. Diarrhea. This developed soon after taking Ba ctrim. Resolving with immmodium. Consultants: cardiology, critical/malariologist, e lectrophysiology, nephrology Electronically Signed by Jonah Velazco MD on 3 at 1928 RPT #:[id number] END OF REPORT 2022-12-08 [facility] 12:00:00-00:00 [facility] Critical Care Progress Note REPORT#:[id number] REPORT STATUS: Signed DATE:12/08/22 TIME: 1200 PATIENT: JEAN CLAUDE WALLACE UNIT #: [id number] ROOM/BED: [place] [address] : 52 AGE: 72 SEX: M ATTEND: Doc Meeks MD ADM AUTHOR: Jewels Cerna * ALL edits or amendments must be made on the el [employer]/computer document * Subjective Chief complaint: Severe bradycardia HPI: This is a 72 years old male with medical history significant for hypertension, hyperlipidemia, diabetes mellitus, atrial fibril lation, and JAMEY, who was admitted to [facility] day s ago as he was found with severe hyperkalemia and acute renal failure that was done on an outpatient basis. Patient underwent umbilical herni a repair 9 days ago and was discharged home on Bactrim prophylactically and he was foun d to have significant hyperkalemia before discharg e. The patient was transferred to us for EP consult for possible pacemaker placement. The patient ochoa d hemodialysis earlier in the morning. The patient is asymptomatic from his br adycardia. He was admitted to CCU for further observation and management. Objective General VS/I O Last Documented: Result Date Time Pulse Ox 94 12/08 0600 B/P 149/82 12/08 0600 B/P Mean 107 12/08 0600 Pulse 65 12/08 0600 Resp 12 12/08 0600 Temp 98.5 12/08 0400 O2 Delivery Room air 12/08 0000 24 hour I O ending at 0700: 12/08 0700 12/07 1900 Intake Total 480 580.00 Output Total 1100 1850 Balance -620 -1270.00 Intake, IV 100.00 Intake, Oral 480 480 Output, 1000 Hemodialysis Output, Urine 1100 850 PATIENT WEIGHT: Weight (lb): 248 Weight (oz): 10.9 Weight (kg): 112.800 Medications: Active Meds + DC'd Last 24 Hrs Senna/Docusate Sodium (SENOKOT S) 1 TAB BID 9A 5 P PO Calcium Gluconate (Calcium Gluconate 1 GM/NS 50 mL (B2)) 50 ML ONCE ONE IV (DC) Midazolam HCl (VERSED) 0 .STK-MED ONE .ROUTE (DC ) Fentanyl Citrate (SUBLIMAZE) 0 .STK-MED ONE .ROU TE (DC) Midazolam HCl (VERSED) 0 .STK-MED ONE .ROUTE (DC ) Gentamicin Sulfate (GARAMYCIN) 0 .STK-MED ONE .R OUTE (DC) Lidocaine HCl (LIDOCAINE HCL/PF) 0 .STK-MED ONE .ROUTE (DC) Sodium Bicarbonate (SODIUM BICARBONATE) 0 .STK-M ED ONE IV (DC) Vancomycin HCl (VANCOMYCIN HCL) 0 .STK-MED ONE . ROUTE (DC) Hydrocodone Bitart/Acetaminophen (NORCO 5/325) 2 TAB Q4H PRN PRN PO Mupirocin (BACTROBAN 2% 22 GM OINTMENT) 1 APPLIC BID NASAL Isoproterenol HCl (isoproterenol HCL) 1 MG TITRA TE IV (DC) Sodium Chloride (SODIUM CHLORIDE 0.9%) 500 ML Allopurinol (ZYLOPRIM) 200 MG BEDTIME PO Atorvastatin Calcium (LIPITOR) 40 MG 2100 PO Albumin Human (ALBUMINAR-25%) 12.5 GM ASDIR PRN IV Heparin Sodium (Porcine) (HEPARIN SODIUM) 3,000 UNIT ASDIR PRN DIALYSIS Lidocaine HCl (LIDOCAINE HCL/PF) 0.5 ML ASDIR MT N I-DERMAL (CKD) Mannitol (Mannitol 20%) 12.5 GM ASDIR PRN IV Sodium Chloride (SODIUM CHLORIDE 0.9%) 2,000 ML ASDIR PRN IV Sodium Chloride (SODIUM CHLORIDE) 5 ML ASDIR PRN IV Sodium Chloride (SODIUM CHLORIDE) 10 ML ASDIR MT N IV Sodium Chloride (SODIUM CHLORIDE 0.9%) 250 ML DIR PRN IV Fludrocortisone Acetate (FLORINEF ACETATE) 0.1 M G DAILY PO Insulin Glargine (Semglee) 10 UNIT BID SUBQ Insulin Human Lispro (HUMALOG) 0 AC HS SUBQ Ceftriaxone Sodium (ROCEPHIN 1000MG VIAL) 1,000 MG Q24H IV (DC) Sodium Chloride (SODIUM CHLORIDE) 10 ML Acetaminophen (TYLENOL) 650 MG Q4H PRN PRN PO Dextrose/Water (DEXTROSE 10% IN WATER) 125 ML DIR PRN IV (CKD) Dextrose/Water (DEXTROSE 10% IN WATER) 250 ML DIR PRN IV (CKD) Docusate Sodium (COLACE) 100 MG BID PRN PRN PO Glucagon (GLUCAGON) 1 MG ASDIR PRN IM Loperamide HCl (IMODIUM CAPSULE) 2 MG Q4H PRN MT N PO Ondansetron HCl (ZOFRAN) 4 MG Q4H PRN PRN IV Dopamine HCl/Dextrose (DOPamine 400MG/D5W 250ML) 250 ML ASDIR IV (DC) Results Findings/data: Laboratory Tests 12/08 1945 1642 Chemistry Sodium (134 - 147 mEq/L) 131 L Potassium (3.4 - 5.0 mEq/L) 4.3 Chloride (100 - 108 mEq/L) 97 L Carbon Dioxide (21 - 33 mEq/l) 26 Anion Gap (0 - 20) 12 BUN (7 - 18 mg/dL) 27 H Creatinine (0.6 - 1.3 mg/dL) 2.2 H Glomerular Filtr Rate (70 - 80) 31.4 L Glucose (70 - 110 mg/dL) 172 H POC Glucose (70 - 110 MG/DL) 196 H 196 H Calcium (8.0 - 10.5 mg/dL) 8.2 Ionized Calcium Ly (1.09 - 1.30 MMOL/L) 1.07 L Phosphorus (2.5 - 4.9 MG/DL) 3.0 Magnesium (1.80 - 2.40 mg/dL) 1.71 L Laboratory Tests 12/09 347 Hematology WBC (4.5 - 11.0 x10 3/uL) 5.9 RBC (4.00 - 5.60 x10 6/uL) 4.17 Hgb (12.5 - 16.9 g/dL) 12.8 Hct (37.5 - 50.7 %) 38.3 MCV (81.0 - 99.0 fL) 91.8 MCH (27.0 - 33.0 pg) 30.7 MCHC (33.0 - 37.0 g/dL) 33.4 RDW (11.5 - 14.5 %) 14.4 Plt Count (150 - 400 x10 3/uL) 158 MPV (7.0 - 9.0 fL) 11.2 H Neut % (Auto) (56.0 - 77.0 %) 49.4 L Lymph % (Auto) (14.0 - 32.0 %) 19.3 [place]isle % (Auto) (4.8 - 9.0 %) 23.6 H Eos % (Auto) (0.3 - 3.7 %) 5.1 H Baso % (Auto) (0.0 - 2.0 %) 1.4 Neut # (Auto) (2.0 - 7.6 x10 3/uL) 2.92 Lymph # (Auto) (1.0 - 3.8 x10 3/uL) 1.14 [place] # (Auto) (0.1 - 0.8 x10 3/uL) 1.39 H Eos # (Auto) (0.0 - 0.2 x10 3/uL) 0.30 H Baso # (Auto) (0.0 - 0.2 x10 3/uL) 0.08 Abs Immat Gran (auto) (0.00 - 0.03 x10 3/uL) 0. 07 H Add Manual Diff NO Immature Gran % (0.0 - 2.0 %) 1.2 Nucleated RBC % (0 - 0 %) 0.0 Nucleated RBCs # (Man) (0.0 - 0.1 x10 3/uL) 0.0 0 Laboratory Tests 12/08/22 0348: [Embedded Image Not Available] Radiology data Recent Impressions: RADIOLOGY - XR CHEST 1 V 12/07 1722 Report Impression - Status: SIGNED Entered: 12/07/2022 1833 IMPRESSION: 1. Moderate enlarged cardiac silhouette. 2. Mild interstitial pulmonary edema versus infi ltrates. Impression By: [email or web address] - Bruno Tineo M.D. RADIOLOGY - XR CHEST 1 V 12/08 0553 Report Impression - Status: SIGNED Entered: 12/08/2022 0719 IMPRESSION: 1. Stable chest with findings suggestive of mild pulmonary edema or infection. 2. Stable moderate cardiomegaly. Impression By: [email or web address] - Yesenia Dewitt Results: vital signs reviewed, rhythm personally rev'd, x-ray personally reviewed, current med profile rev'd Free Text Obj Notes Free Text Obj Notes: Physical Exam: General appearance: alert, awake, oriented, room air Head/Eyes: atraumatic, EOMI, normal conjunctiva/sclera, normal eyelids/periorb., normocephalic ENT: moist mucosal membranes Neck: full range of motion, no bruit/NL carotids , no JVD Cardiovascular: Paced. Respiratory: aerating well, clear to auscultatio n, symmetric expansion, no distress Abdomen: non-tender, normal bowel sounds, soft, no distention, no guarding Extremities: moves all, no cyanosis, no edema, L eft arm sling in place, right groin swollen and tender to touch 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, oriented X 3, normal speech, n o motor deficits, no sensory deficits Skin: intact, normal color, no rash Treatment Prophylaxis Treatment Prophylaxis Urinary cath status: discontinue today Oxygen: room air Lines: peripheral Drain(s)/tube(s): Drain(s)/tube(s): urinary catheter Anti-infectives: ceftriaxone Diagnosis, Assessment Plan Problem list/A P: 1. DM type 2 (diabetes mellitus, type 2) 2. Dyslipidemia 3. JAMEY (obstructive sleep apnea) 4. Afib 5. Bradycardia 6. Acute renal failure (ARF) 7. Leukocytosis Free text A P: Problem list/A P: 1. DM type 2 (diabetes mellitus, type 2) 2. Dyslipidemia 3. JAMEY (obstructive sleep apnea) 4. Afib 5. Bradycardia 6. Acute renal failure (ARF) 7. Leukocytosis This is a 72 years old male with medical history significant for hypertension, hyperlipidemia, diabetes mellitus, atrial fibril lation, and JAMEY, who was admitted to [facility] 3 day s ago as he was found with severe hyperkalemia and acute renal failure that was done on an outpatient basis. Patient underwent umbilical herni a repair 9 days ago and was discharged home on Bactrim prophylactically and he was foun d to have significant hyperkalemia before discharg e. The patient was transferred to us for EP consult for possible pacemaker placement. The patient ochoa d hemodialysis earlier in the morning. The patient is asymptomatic from his br adycardia. He was admitted to CCU for further observation and management. 12/08/2022- Awake/alert, no distress. S/p PPM, LUE supported with arm sling, no edema/cyanosis. Reports pain at incision site. Neuro: AO x3, no distress Pain control Cardio: Junctional rhythm/bradycardia sick sinus syndrom e - PPM placement on 12/07 12/07 Echo w/normal EF, cardiology follows Hypertension History of longstanding persistent atrial fibril lation, pradaxa/ MTP on hold. On statin EP following Resp: On RA, saturating well Hx obstrutive sleep apnea Continue with home CPAP CXR noted. GI/Endo: JANES, bowel care Type 2 diabetes mellitus ISS + glargine 10u BID. Glucochecks ACHS Continue Allopurinol : Hyperkalemia. Corrected with HD. Acute renal failure on chron ic kidney disease, likely due to acute interstitial nephritis from exposure to Bactrim for 1 week - Hemodialysis to be continued per renal Patient came with RIJ hemodialysis catheter plac ed at [facility] 1.5 liter free water restriction On corticosteroids Avoid sulfa drugs, NSAIDs and IV contrast exposu re Monitor renal function, I O, weigh daily Monitor electrolytes and replete as needed Nephro following Heme/ID: Afebrile Mild leukocytosis MRSA negative Urine Cx negatve to date, will d/c abx Monitor CBC and transfuse as needed Musc: Check right groin puncture site - failed attempt for trialysis placement at [facility] Skin care Pressure injury prevention PT/OT, OOB to chair and ambulation. Activity as tolerated DVT prophylaxis: SCD Dispo: May transfer to [facility] from [facility] stand point . Patient is full code. I spent 35 minutes of critic al care reviewing labs, imaging and discussing plan of care with [facility] team, patient, family and nurse . Orders: Procedure Date/time Status PHYSICAL THERAPIST CONSULT 12/08 1021 Active Occupational Therapist Consult 12/08 1021 Activ e Consultants: cardiology, critical/malariologist, e lectrophysiology, nephrology Code status: full code Plan discussed with: patient, spouse/partner, emily bliss, consultants, nurse, interdisc care team, pharmacy/pharmacist Quality: Gen Med Crit Care VTE Prophylaxis VTE prophylaxis initiated: yes Current Medications Current medication review: I attest that the foregoing medication list in t he medical record is true, accurate, and complete to the best of my knowled ge. Advanced Care Plan 65 or Older Discussed with: patient Discussion included: living will (yes), power of ip technology transactions attorney (yes), code status ( full code) at 1224 RPT #:[id number] END OF REPORT 2022-12-08 [facility] 08:21:00-00:00 [facility] Cardiology Progress Note REPORT#:[id number] REPORT STATUS: Signed DATE:12/08/22 TIME: 820 PATIENT: JEAN CLAUDE WALLACE UNIT #: [id number] ROOM/BED: [place] [id number] : 52 AGE: 72 SEX: M ATTEND: Doc Meeks MD ADM AUTHOR: Sanjuanita Camarillo NP * ALL edits or amendments must be made on the el [employer]/computer document * Subjective Chief complaint: s/p PPM stable Objective General VS/I O: Laboratory Tests 12/08/22 0348: [Embedded Image Not Available] 12/07/22 0610: [Embedded Image Not Available] Current Medications Sig/Leidy Start time Last Medication Dose Route Stop Time Status Admin Senna/Docusate Sodium 1 TAB BID 9A 5P 12/08 170 0 AC PO 01/07 1659 Calcium Gluconate 50 ML ONCE ONE 12/08 814 DC 12/08 IV 12/08 08 0915 Hydrocodone Bitart/ 2 TAB Q4H PRN PRN 12/07 114 5 AC Acetaminophen PO 12/12 1144 Mupirocin 1 APPLIC BID 12/07 0930 AC 12/08 NASAL 12/11 2101 0758 Isoproterenol HCl 1 MG TITRATE 12/06 0045 DC Sodium Chloride 500 ML IV 01/05 0044 0033 Allopurinol 200 MG BEDTIME 12/05 2100 AC 12/07 PO 01/04 2059 195 Atorvastatin Calcium 40 MG 2100 12/05 2100 AC 0 12/07 PO 01/04 Albumin Human 12.5 GM ASDIR PRN 12/05 1700 AC IV 01/05 1658 Heparin Sodium 3,000 UNIT ASDIR PRN 12/05 1700 AC 12/07 (Porcine) DIALYSIS 01/04 165 0815 Lidocaine HCl 0.5 ML ASDIR PRN 12/05 1700 CKD I-DERMAL 01/05 1658 Mannitol 12.5 GM ASDIR PRN 12/05 1700 AC 12/05 IV 01/05 1658 2215 Sodium Chloride 2,000 ML ASDIR PRN 12/05 1700 A C 12/07 IV 01/05 1658 0814 Sodium Chloride 5 ML ASDIR PRN 12/05 1700 AC IV 01/04 1659 Sodium Chloride 10 ML ASDIR PRN 12/05 1700 AC 0 12/05 IV 01/04 165 2108 Sodium Chloride 250 ML ASDIR PRN 12/05 1700 AC IV 01/04 1659 Fludrocortisone 0.1 MG DAILY 12/05 09 AC 08 1 Acetate PO 01/04 0859 0757 Insulin Glargine 10 UNIT BID 12/05 09 AC 08/0 1 SUBQ 01/04 0859 0758 Insulin Human Lispro 0 AC HS 12/05 0730 AC 08 1 SUBQ 01/04 0729 1157 Ceftriaxone Sodium 1,000 MG Q24H 12/05 0500 DC 12/08 Sodium Chloride 10 ML IV 12/10 0459 0407 Acetaminophen 650 MG Q4H PRN PRN 12/05 0145 AC 12/08 PO 01/04 0144 0921 Dextrose/Water 125 ML ASDIR PRN 12/05 0145 CKD IV 01/04 0144 Dextrose/Water 250 ML ASDIR PRN 12/05 0145 CKD IV 01/04 0144 Docusate Sodium 100 MG BID PRN PRN 12/05 0145 A C PO 01/04 0144 Glucagon 1 MG ASDIR PRN 12/05 0145 AC IM 01/04 0144 Loperamide HCl 2 MG Q4H PRN PRN 12/05 0145 AC PO 01/04 0144 Ondansetron HCl 4 MG Q4H PRN PRN 12/05 0145 AC 12/05 IV 01/04 0144 0855 Dopamine HCl/Dextrose 250 ML ASDIR 12/05 0030 D C 12/05 IV 01/04 0029 0050 24 hour I O ending at 0700: 12/08 0700 12/07 1900 Intake Total 480 580.00 Output Total 1100 1850 Balance -620 -1270.00 Intake, IV 100.00 Intake, Oral 480 480 Output, 1000 Hemodialysis Output, Urine 1100 850 Vital Signs: Date Time Temp Pulse Resp B/P B/P Pulse O2 O2 F low FiO2 Mean Ox Delivery Rate 12/08 1200 36.8 12/08 1200 66 22 178/94 127 96 08/ 1100 61 17 155/81 111 96 08/ 1000 63 16 164/77 111 94 08/ 0900 69 19 172/84 121 94 08/ 0800 36.2 08/ 0800 71 17 151/87 106 95 / 0730 68 11 141/78 104 95 12/08 0700 62 14 150/74 104 95 12/08 0600 65 12 149/82 107 94 08/01 0530 65 13 141/69 99 93 08/01 0500 62 13 150/79 106 93 08/01 0431 65 13 149/70 101 95 08/01 0401 67 18 157/73 105 96 08/01 0400 36.9 08/01 0300 62 17 153/70 101 95 08/01 0201 73 15 147/68 98 96 08/01 0100 62 14 151/71 102 93 08/01 0035 62 14 146/76 104 93 08/01 0000 37.4 Room air 08/01 0000 67 15 154/72 104 95 07/ 2330 63 128/67 90 92 07/ 2300 68 14 144/68 98 92 07 2230 72 28 145/63 91 92 12/07 2200 80 24 139/63 90 94 12/07 2145 89 25 139/63 90 93 12/07 2030 88 26 151/70 100 94 12/07 2000 38.1 Room air 12/08 1999 84 24 157/74 106 95 12/07 1930 89 27 151/69 99 94 12/07 1924 85 25 150/66 95 95 12/07 1816 92 28 172/85 118 87 12/07 1800 91 19 164/78 112 97 12/07 1700 91 24 150/70 101 97 12/07 1645 90 23 162/75 108 95 12/07 1630 88 23 156/72 104 94 12/07 1615 89 22 162/75 108 96 12/07 1600 36.7 91 18 159/72 104 93 12/07 1558 91 24 162/72 103 93 12/07 1530 98 22 180/82 118 96 12/07 1516 101 26 167/87 121 92 12/07 1501 88 22 169/84 120 92 12/07 1430 94 19 162/77 110 90 PATIENT WEIGHT: Weight (lb): 248 Weight (oz): 10.9 Weight (kg): 112.800 Physical Exam General appearance: alert, awake, oriented, no a cute distress, pleasant Head/Eyes: atraumatic, PERRL Neck: full range of motion, non-tender, no JVD Cardiovascular: CV assessment: regular rate and rhythm, paced Respiratory: clear to auscultation, no distress Abdomen: distended Lower extremity: LE assessment: normal capillary refill, no jared a Musculoskeletal: normal inspection 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, oriented X 3, normal speech Skin: dry, intact, normal color Psychiatry: normal affect, normal judgment/insig ht, normal mood Results Radiology data: Recent Impressions: RADIOLOGY - XR CHEST 1 V 12/07 1722 Report Impression - Status: SIGNED Entered: 12/07/2022 1833 IMPRESSION: 1. Moderate enlarged cardiac silhouette. 2. Mild interstitial pulmonary edema versus infi ltrates. Impression By: [email or web address] - Bruno Tineo M.D. RADIOLOGY - XR CHEST 1 V 12/08 0553 Report Impression - Status: SIGNED Entered: 12/08/2022 0719 IMPRESSION: 1. Stable chest with findings suggestive of mild pulmonary edema or infection. 2. Stable moderate cardiomegaly. Impression By: [email or web address] Yesenia Finley Diagnosis, Assessment Plan Consultants: cardiology, critical/malariologist, e lectrophysiology, nephrology Free Text DxA P Notes Free Text DxA P Notes: 72 YO male with MHx of paroxysmal atrial fibrill ation (on Pradaxa, Coreg, and Digoxin), diastolic CHF (on Lasix and potassium) , DM, HLD, HTN, JAMEY (on CPAP) who is here due to symptomatic bradycardia, acut e kidney failure, and hyperkalemia. We are consulted for cardiac evalu ation. 1. Symptomatic bradycardia * Echo reviewed - normal EF * s/p PPM (Olar) 2. Atrial fibrillation with sick sinus syndrome - paced * s/p PPM * hold Pradaxa for 72 hours 3. Acute kidney injury * on Hemodialysis * per nephrology 4. Hyperkalemia - resolved 5. Diabetes mellitus * manage per primary team 6. Hypertension * BP elevated * resume coreg ok to transfer to [facility] from cardiac standpoint MDM by Dr. Calix. Electronically Signed by Sanjuanita Camarillo NP on 0 12/08/22 at 1413 Electronically Signed by Pedro Calix MD on at 2790 RPT #:[id number] END OF REPORT 2022-12-07 [facility] 23:32:00-00:00 [facility] Hospitalist Progress Note REPORT#:[id number] REPORT STATUS: Signed DATE:12/07/22 TIME: 2331 PATIENT: JEAN CLAUDE WALLACE UNIT #: [id number] ROOM/BED: [place] [address] : 52 AGE: 72 SEX: M ATTEND: Doc Meeks MD ADM AUTHOR: Nisha Meeks MD * ALL edits or amendments must be made on the [employer]/computer document * Subjective Chief complaint: getting pacemaker today. HPI: 72-year-old man with past medical history of ana betes, dyslipidemia, atrial fibrillation and obstructive sleep apnea that wa s admitted to [facility] 3 days ago when his find out to have severe hyperkalemia and acute renal failure on routine blood work done with ms s primary care this past Wednesday. Patient underwent umbilical hernia re pair 9 days ago without any complication. Patient was discharged home on Grecia trim prophylactically. Wants to sign out to have severe hyperkalemia and acut e renal failure this past Wednesday patient was admitted to the hospital. Patient was found to have severe bradycardia with hear t rate in the 20s and 30s the initial thought to be secondary to his hyperkalemia and acute renal fa ilure. Patient required hemodialysis to treat his hyperkalemia a nd after hyperkalemia was resolved his heart rate did not improve. Has been thought jeremias t the reason for the acute renal failure is due to Bactrim in addition to b owling depletion. Patient was transferred here to be evaluated for pacemaker p lacement. Patient currently does not have any complaints. Objective General VS/I O: Vital Signs: Date Time Temp Pulse Resp B/P B/P Pulse O2 O2 F low FiO2 Mean Ox Delivery Rate 12/08 1999 100.5 Room air 12/07 1816 92 28 172/85 118 87 12/07 1800 91 19 164/78 112 97 12/07 1700 91 24 150/70 101 97 12/07 1645 90 23 162/75 108 95 12/07 1630 88 23 156/72 104 94 12/07 1615 89 22 162/75 108 96 12/07 1600 98.0 91 18 159/72 104 93 12/07 1558 91 24 162/72 103 93 12/07 1530 98 22 180/82 118 96 12/07 1516 101 26 167/87 121 92 12/07 1501 88 22 169/84 120 92 12/07 1430 94 19 162/77 110 90 12/07 1200 97.8 95 32 95 12/07 1058 81 17 156/72 104 94 12/07 1054 75 17 137/68 96 95 12/07 1045 77 19 138/73 98 95 12/07 1030 74 17 164/72 103 97 12/07 1015 74 15 152/70 100 94 07 1000 78 17 150/74 106 96 12/07 0945 81 28 150/70 101 95 12/07 0930 76 21 141/67 97 95 12/07 0915 79 19 151/68 98 93 12/07 0900 76 14 134/70 96 94 12/07 0845 76 15 133/66 93 95 12/07 0830 72 16 135/68 95 95 12/07 0815 75 14 149/67 96 95 12/07 0800 97.6 75 16 130/70 94 95 12/07 0755 72 18 149/71 100 93 12/07 0745 81 16 134/71 97 93 12/07 0732 83 17 145/67 96 92 12/07 0730 87 17 140/65 93 92 12/07 0712 89 17 144/66 95 92 12/07 0600 99.7 95 Room air 12/07 0300 86 28 136/65 93 95 12/07 0230 97 20 132/61 88 93 12/07 0200 72 14 135/64 92 95 12/07 0130 73 15 126/65 89 93 12/07 0101 75 15 137/61 88 93 12/07 0031 73 31 162/72 103 95 12/07 0001 64 15 140/63 90 94 12/07 0000 98.0 18 Nasal CPAP 24 hour I O ending at 0700: 12/07 0700 12/06 1900 Intake Total 196.00 1091.00 Output Total 875 1075 Balance -679.00 16.00 Intake, IV 196.00 371.00 Intake, Oral 720 Number 1 0 Bowel Movements Output, Urine 875 1075 Patient 249 lb Weight Weight Bed scale Measurement Method PATIENT WEIGHT: Weight (lb): 248 Weight (oz): 10.9 Weight (kg): 112.800 Medications: Active Meds + DC'd Last 24 Hrs Midazolam HCl (VERSED) 0 .STK-MED ONE .ROUTE (DC ) Fentanyl Citrate (SUBLIMAZE) 0 .STK-MED ONE .ROU TE (DC) Midazolam HCl (VERSED) 0 .STK-MED ONE .ROUTE (DC ) Gentamicin Sulfate (GARAMYCIN) 0 .STK-MED ONE .R OUTE (DC) Lidocaine HCl (LIDOCAINE HCL/PF) 0 .STK-MED ONE .ROUTE (DC) Sodium Bicarbonate (SODIUM BICARBONATE) 0 .STK-M ED ONE IV (DC) Vancomycin HCl (VANCOMYCIN HCL) 0 .STK-MED ONE . ROUTE (DC) Hydrocodone Bitart/Acetaminophen (NORCO 5/325) 2 TAB Q4H PRN PRN PO Mupirocin (BACTROBAN 2% 22 GM OINTMENT) 1 APPLIC BID NASAL Magnesium Sulfate/Dextrose (MAGNESIUM SULFATE 1G M/D5W 100ML) 100 ML ONCE ONE IV (DC) Isoproterenol HCl (isoproterenol HCL) 1 MG TITRA TE IV (CKD) Sodium Chloride (SODIUM CHLORIDE 0.9%) 500 ML Allopurinol (ZYLOPRIM) 200 MG BEDTIME PO Atorvastatin Calcium (LIPITOR) 40 MG 2100 PO Albumin Human (ALBUMINAR-25%) 12.5 GM ASDIR PRN IV Heparin Sodium (Porcine) (HEPARIN SODIUM) 3,000 UNIT ASDIR PRN DIALYSIS Lidocaine HCl (LIDOCAINE HCL/PF) 0.5 ML ASDIR MT N I-DERMAL (CKD) Mannitol (Mannitol 20%) 12.5 GM ASDIR PRN IV Sodium Chloride (SODIUM CHLORIDE 0.9%) 2,000 ML ASDIR PRN IV Sodium Chloride (SODIUM CHLORIDE) 5 ML ASDIR PRN IV Sodium Chloride (SODIUM CHLORIDE) 10 ML ASDIR MT N IV Sodium Chloride (SODIUM CHLORIDE 0.9%) 250 ML DIR PRN IV Fludrocortisone Acetate (FLORINEF ACETATE) 0.1 M G DAILY PO Insulin Glargine (Semglee) 10 UNIT BID SUBQ Insulin Human Lispro (HUMALOG) 0 AC HS SUBQ Ceftriaxone Sodium (ROCEPHIN 1000MG VIAL) 1,000 MG Q24H IV Sodium Chloride (SODIUM CHLORIDE) 10 ML Acetaminophen (TYLENOL) 650 MG Q4H PRN PRN PO Dextrose/Water (DEXTROSE 10% IN WATER) 125 ML DIR PRN IV (CKD) Dextrose/Water (DEXTROSE 10% IN WATER) 250 ML A SDIR PRN IV (CKD) Docusate Sodium (COLACE) 100 MG BID PRN PRN PO Glucagon (GLUCAGON) 1 MG ASDIR PRN IM Loperamide HCl (IMODIUM CAPSULE) 2 MG Q4H PRN MT N PO Ondansetron HCl (ZOFRAN) 4 MG Q4H PRN PRN IV Dopamine HCl/Dextrose (DOPamine 400MG/D5W 250ML) 250 ML ASDIR IV Physical Exam General appearance: no acute distress Head/Eyes: atraumatic, EOMI, normal conjunctiva/sclera, normal eyelids/periorb., normocephalic ENT: moist mucosal membranes Neck: full range of motion, no bruit/NL carotids , no JVD Cardiovascular: bradycardic, normal heart sounds Respiratory: aerating well, clear to auscultatio n, symmetric expansion, no distress Abdomen: non-tender, normal bowel sounds, soft, no distention, no guarding Extremities: moves all, no cyanosis, no edema 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, oriented X 3, normal speech, n o motor deficits, no sensory deficits Skin: intact, normal color, no rash Results Findings/Data: Laboratory Tests 12/07 12/07 12/07 12/07 1642 1043 0746 0610 Chemistry Sodium (134 - 147 mEq/L) 133 L Potassium (3.4 - 5.0 mEq/L) 4.5 Chloride (100 - 108 mEq/L) 98 L Carbon Dioxide (21 - 33 mEq/l) 27 Anion Gap (0 - 20) 12 BUN (7 - 18 mg/dL) 38 H Creatinine (0.6 - 1.3 mg/dL) 3.0 H Glomerular Filtr Rate (70 - 80) 21.7 L Glucose (70 - 110 mg/dL) 139 H POC Glucose (70 - 110 MG/DL) 196 H 116 H 146 H Calcium (8.0 - 10.5 mg/dL) 9.2 Ionized Calcium Ly (1.09 - 1.30 MMOL/L) 1.20 Phosphorus (2.5 - 4.9 MG/DL) 3.5 Magnesium (1.80 - 2.40 mg/dL) 1.82 Laboratory Tests 12/07 0610 Hematology WBC (4.5 - 11.0 x10 3/uL) 9.2 RBC (4.00 - 5.60 x10 6/uL) 4.21 Hgb (12.5 - 16.9 g/dL) 12.9 Hct (37.5 - 50.7 %) 38.2 MCV (81.0 - 99.0 fL) 90.7 MCH (27.0 - 33.0 pg) 30.6 MCHC (33.0 - 37.0 g/dL) 33.8 RDW (11.5 - 14.5 %) 14.3 Plt Count (150 - 400 x10 3/uL) 190 MPV (7.0 - 9.0 fL) 11.1 H Neut % (Auto) (56.0 - 77.0 %) 76.1 Lymph % (Auto) (14.0 - 32.0 %) 5.9 L Carlisle % (Auto) (4.8 - 9.0 %) 14.4 H Eos % (Auto) (0.3 - 3.7 %) 2.0 Baso % (Auto) (0.0 - 2.0 %) 0.9 Neut # (Auto) (2.0 - 7.6 x10 3/uL) 7.01 Lymph # (Auto) (1.0 - 3.8 x10 3/uL) 0.54 L Carlisle # (Auto) (0.1 - 0.8 x10 3/uL) 1.32 H Eos # (Auto) (0.0 - 0.2 x10 3/uL) 0.18 Baso # (Auto) (0.0 - 0.2 x10 3/uL) 0.08 Abs Immat Gran (auto) (0.00 - 0.03 x10 3/uL) 0. 06 H Add Manual Diff NO Immature Gran % (0.0 - 2.0 %) 0.7 Nucleated RBC % (0 - 0 %) 0.0 Nucleated RBCs # (Man) (0.0 - 0.1 x10 3/uL) 0.0 0 Radiology data: Recent Impressions: RADIOLOGY - XR CHEST 1 V 12/07 0569 Report Impression - Status: SIGNED Entered: 12/07/2022718 IMPRESSION: Stable exam findings of cardiomegaly with probab le mild pulmonary edema, correlate clinically. Impression By: [email or web address] Gregoria Armstrong RADIOLOGY - XR CHEST 1 V 12/07 1722 Report Impression - Status: SIGNED Entered: 12/07/2022 1369 IMPRESSION: 1. Moderate enlarged cardiac silhouette. 2. Mild interstitial pulmonary edema versus infi ltrates. Impression By: [email or web address] - Bruno Tineo M.D. Diagnosis, Assessment Plan Problem List/A P: 1. Bradycardia - Initially thought to be secondary to hyperkal emia but this has been effectively treated and currently patient contin ues to be bradycardic with an idioventricular rhythm. -At home patient was taking beta-blockers and digoxin but this was discontinued when he was admitted to the hospital 3 days ago. -EP consult for possible pacemaker placement -Currently on dopamine to help increase his hea rt rate 2. Acute renal failure (ARF) Believed to be secondary to Bactrim invasion de bility depletion. Patient at home was taking Lasix and also oral potassium. -Nephrology consult for continuation of hemodia lysis. -Patient have a temporary dialysis catheter on the right IJ. 3. Leukocytosis Patient denies any fever or chills. No physical signs of infection. -UA done as a look [place] yesterday is cons istent with UTI. Chest x-ray was negative. -Chest x-ray and UA will be repeated here. We w ill send urine culture as needed. -Patient started on Rocephin 1 g IV gill ry 24 hours pending results of the UA. -Continue to monitor WBCs 4. JAMEY (obstructive sleep apnea) Continue with home CPAP 5. DM type 2 (diabetes mellitus, type 2) Resume insulin sliding scale and Lantus insulin . We will hold metformin. 6. Dyslipidemia Resume home medication. 7. Afib Currently has a idioventricular rhythm. -EP was consulted -Patient was on Pradaxa at home which has been held since prior to his surgery Consultants: cardiology, critical/malariologist, e lectrophysiology, nephrology Free Text DxA P Notes Free text DxA P notes: Bradycardia Cardiology and Ep seen ppm today [facility] renal on HD as needed UTI urine culture pending on IV Rocehin HTN monitor for now follow labs Quality: Gen Med Crit Care VTE Prophylaxis VTE prophylaxis initiated: yes Current Medications Current medication review: I attest that the foregoing medication list in [facility] medical record is true, accurate, and complete to the best of my knowled ge. Advanced Care Plan 65 or Older Discussed with: patient Discussion included: living will (yes), power of ip technology transactions attorney (yes), code status ( full code) Electronically Signed by Nisha Meeks MD on 0 12/13/22 at 2245 [facility] #:[id number] END OF REPORT 2022-12-07 [id number] [facility] 19:44:00-00:[address] [place] [id number] PATIENT NAME: JEAN CLAUDE WALLACE ADMIT DATE: ACCOUNT NO: [id number] ROOM NO: [facility] AGE: 72 REPORT TYPE: OPERATIVE REPORT SEX: M ADMITTING PHYSICIAN:Kishan Kulkarni MD ATTENDING PHYSICIAN:Nisha Meeks MD OPERATION DATE: 12/07/2022 PREOPERATIVE DIAGNOSES: 1. Complete heart block. 2. Sick sinus syndrome. 3. Dizziness. POSTOPERATIVE DIAGNOSES: 1. Complete heart block. 2. Sick sinus syndrome. 3. Dizziness. ATTENDING PHYSICIAN: Miguelangel Bucio MD ESTIMATED BLOOD LOSS: 10 mL. PROCEDURE PERFORMED: 1. Dual chamber pacemaker placement. 2. Moderate sedation. Moderate conscious sedation was provided under my direct supervision by sedation trained nurse. Sedation time 35 minutes. Versed and fentanyl. See report for details. DESCRIPTION OF PROCEDURE: After informed consent was obtained, the patient was brought to the electrophysiology laboratory in a fasting sedated state. Area over his chest was prepped and draped in the usu al sterile fashion. Moderate sedation and prophylactic antibiotic were given. Lidocaine was used for local anesthetic and a 3 cm skin incision was made in the left subclavicular area. Electrocautery sharp and dina nt dissection were used to reach the muscular fascia and a pocket was created for event impla ntation of the device. Vascular access was obtained x2 in the left axillary vein using modified Seldinger technique under fluoroscopic guidance. Two sheaths were placed, ventricular lead to the RV apex, R-wave 4.8, pacing 0.5 . Atrial lead to the right atrial appendage, atrial fibrillation waves at 2.0. Sheaths removed from the body. Leads secured to fascia using Ethibond. Pocket was irriga socorro with antibiotic solution using the pulse web producer. Hemostasis was meticulous. Lead s connected to the device and entire pacemaker system placed in the pocket. In cision was closed using absorbable sutures and Dermabond. The patient to lerated the procedure well. Procedure was complete.. SUMMARY OF HARDWARE IMPLANTED: 1. The new pacemaker is [employer] [id number] . 2. Atrial lead [id number]. PATIENT NAME: JEAN CLAUDE WALLACE ACCOUNT #: [id number] 3. Ventricular lead [id number]. IMPRESSION: Successful dual chamber pacemaker pl acement via left axillary vein. PLAN: 1. Routine postop monitoring on telemetry bed. 2. Chest x-ray. 3. Follow up in 1-2 weeks. Dictated By: Miguelangel Bucio MD Date Dictated: 12/07/2022 19:44:11 Date Transcribed: 12/08/2022 00:42:17 [facility] Receipt ID: [id number] Authenticated and Edited by Miguelangel Bucio MD On 12/08/22 4:50:07 PM at 0455 PATIENT NAME: JEAN CLAUDE WALLACE ACCOUNT #: [id number] 2022-12-07 [facility] 19:28:00-00:00 [facility] Nephrology Progress Note REPORT#:[id number] REPORT STATUS: Signed DATE:12/07/22 TIME: 1927 PATIENT: JEAN CLAUDE WALLACE UNIT #: [id number] ROOM/BED: [place] [address] : 52 AGE: 72 SEX: M ATTEND: Doc Meeks MD ADM AUTHOR: Jonah Velazco MD * ALL edits or amendments must be made on the el [employer]/computer document * Subjective Chief complaint: Patient seen and examind after HD. He is clinica lly unchanged. Objective General VS/I O: Vital Signs: Date Time Temp Pulse Resp B/P B/P Pulse O2 O2 F low FiO2 Mean Ox Delivery Rate 12/07 1816 92 28 172/85 118 87 12/07 1800 91 19 164/78 112 97 12/07 1700 91 24 150/70 101 97 07/31 1645 90 23 162/75 108 95 07/31 1630 88 23 156/72 104 94 07/31 1615 89 22 162/75 108 96 07/31 1600 36.7 91 18 159/72 104 93 07/31 1558 91 24 162/72 103 93 07/31 1530 98 22 180/82 118 96 07/31 1516 101 26 167/87 121 92 07/31 1501 88 22 169/84 120 92 07/31 1430 94 19 162/77 110 90 07/31 1200 36.6 95 32 95 07/31 1058 81 17 156/72 104 94 07/31 1054 75 17 137/68 96 95 07/31 1045 77 19 138/73 98 95 07/31 1030 74 17 164/72 103 97 07/31 1015 74 15 152/70 100 94 07/31 1000 78 17 150/74 106 96 07/31 0945 81 28 150/70 101 95 07/31 0930 76 21 141/67 97 95 07/31 0915 79 19 151/68 98 93 07/31 0900 76 14 134/70 96 94 07/31 0845 76 15 133/66 93 95 07/31 0830 72 16 135/68 95 95 07/31 0815 75 14 149/67 96 95 07/31 0800 36.4 75 16 130/70 94 95 07/31 0755 72 18 149/71 100 93 07/31 0745 81 16 134/71 97 93 07/31 0732 83 17 145/67 96 92 07/31 0730 87 17 140/65 93 92 07/31 0712 89 17 144/66 95 92 07/31 0600 37.6 95 Room air 07/31 0300 86 28 136/65 93 95 07/31 0230 97 20 132/61 88 93 07/31 0200 72 14 135/64 92 95 07/31 0130 73 15 126/65 89 93 07/31 0101 75 15 137/61 88 93 07/31 0031 73 31 162/72 103 95 07/31 0001 64 15 140/63 90 94 07/31 0000 36.7 18 Nasal CPAP 07/30 2301 72 40 131/66 92 94 07/30 2136 78 51 158/70 100 94 07/30 2100 63 15 156/70 101 93 07/30 2045 72 24 151/71 102 93 07/30 2030 87 21 159/73 105 93 12/07 1999 37.2 20 96 Room air 12/07 1999 81 25 158/72 104 96 12/06 1945 81 16 157/72 103 95 12/06 1930 81 34 159/70 107 96 24 hour I O ending at 0700: 12/07 0700 12/06 1900 Intake Total 196.00 1091.00 Output Total 875 1075 Balance -679.00 16.00 Intake, IV 196.00 371.00 Intake, Oral 720 Number 1 0 Bowel Movements Output, Urine 875 1075 Patient 112.8 kg Weight Weight Bed scale Measurement Method PATIENT WEIGHT: Weight (lb): 248 Weight (oz): 10.9 Weight (kg): 112.800 Medications Active Meds + DC'd Last 24 Hrs Midazolam HCl (VERSED) 0 .STK-MED ONE .ROUTE (DC ) Fentanyl Citrate (SUBLIMAZE) 0 .STK-MED ONE .ROU TE (DC) Midazolam HCl (VERSED) 0 .STK-MED ONE .ROUTE (DC ) Gentamicin Sulfate (GARAMYCIN) 0 .STK-MED ONE .R OUTE (DC) Lidocaine HCl (LIDOCAINE HCL/PF) 0 .STK-MED ONE .ROUTE (DC) Sodium Bicarbonate (SODIUM BICARBONATE) 0 .STK-M ED ONE IV (DC) Vancomycin HCl (VANCOMYCIN HCL) 0 .STK-MED ONE . ROUTE (DC) Hydrocodone Bitart/Acetaminophen (NORCO 5/325) 2 TAB Q4H PRN PRN PO Mupirocin (BACTROBAN 2% 22 GM OINTMENT) 1 APPLIC BID NASAL Magnesium Sulfate/Dextrose (MAGNESIUM SULFATE 1G M/D5W 100ML) 100 ML ONCE ONE IV (DC) Isoproterenol HCl (isoproterenol HCL) 1 MG TITRA TE IV (CKD) Sodium Chloride (SODIUM CHLORIDE 0.9%) 500 ML Allopurinol (ZYLOPRIM) 200 MG BEDTIME PO Atorvastatin Calcium (LIPITOR) 40 MG 2100 PO Albumin Human (ALBUMINAR-25%) 12.5 GM ASDIR PRN IV Heparin Sodium (Porcine) (HEPARIN SODIUM) 3,000 UNIT ASDIR PRN DIALYSIS Lidocaine HCl (LIDOCAINE HCL/PF) 0.5 ML ASDIR MT N I-DERMAL (CKD) Mannitol (Mannitol 20%) 12.5 GM ASDIR PRN IV Sodium Chloride (SODIUM CHLORIDE 0.9%) 2,000 ML ASDIR PRN IV Sodium Chloride (SODIUM CHLORIDE) 5 ML ASDIR PRN IV Sodium Chloride (SODIUM CHLORIDE) 10 ML ASDIR MT N IV Sodium Chloride (SODIUM CHLORIDE 0.9%) 250 ML DIR PRN IV Fludrocortisone Acetate (FLORINEF ACETATE) 0.1 M G DAILY PO Insulin Glargine (Semglee) 10 UNIT BID SUBQ Insulin Human Lispro (HUMALOG) 0 AC HS SUBQ Ceftriaxone Sodium (ROCEPHIN 1000MG VIAL) 1,000 MG Q24H IV Sodium Chloride (SODIUM CHLORIDE) 10 ML Acetaminophen (TYLENOL) 650 MG Q4H PRN PRN PO Dextrose/Water (DEXTROSE 10% IN WATER) 125 ML DIR PRN IV (CKD) Dextrose/Water (DEXTROSE 10% IN WATER) 250 ML DIR PRN IV (CKD) Docusate Sodium (COLACE) 100 MG BID PRN PRN PO Glucagon (GLUCAGON) 1 MG ASDIR PRN IM Loperamide HCl (IMODIUM CAPSULE) 2 MG Q4H PRN MT N PO Ondansetron HCl (ZOFRAN) 4 MG Q4H PRN PRN IV Dopamine HCl/Dextrose (DOPamine 400MG/D5W 250ML) 250 ML ASDIR IV Dietitian nutrition assessment The data set between the solid lines has been im ported from the dietitian's assessment. BMI Calculated: 35.7 Nutrition related diagnosis: Nutrition diagnosis details: Nutrition problem: Nutrition etiology: Nutrition signs and symptoms: Nutrition prescription: Dietitian name: Assessment completed: Physical Exam General appearance: alert, awake Head/eyes: atraumatic, EOMI, normocephalic ENT: dry mucous membranes, moist mucous membrane s, normal nose Neck: non-tender, supple/no meningismus, no brui t/NL carotids, no JVD, no lymphadenopathy Cardiovascular: normal heart sounds, regular rat e and rhythm, pedal pulses present, no murmur Respiratory: aerating well, clear to auscultatio n Abdomen: non-tender, soft, no distention Extremities: non-tender, normal inspection, no e linette Results Findings/Data: Laboratory Tests 12/07 12/07 12/07 12/07 12/06 1642 1043 0746 0610 2038 Chemistry Sodium (134 - 147 mEq/L) 133 L Potassium (3.4 - 5.0 mEq/L) 4.5 Chloride (100 - 108 mEq/L) 98 L Carbon Dioxide (21 - 33 mEq/l) 27 Anion Gap (0 - 20) 12 BUN (7 - 18 mg/dL) 38 H Creatinine (0.6 - 1.3 mg/dL) 3.0 H Glomerular Filtr Rate (70 - 80) 21.7 L Glucose (70 - 110 mg/dL) 139 H POC Glucose (70 - 110 MG/DL) 196 H 116 H 146 H 235 H Calcium (8.0 - 10.5 mg/dL) 9.2 Ionized Calcium Ly (1.09 - 1.30 MMOL/L) 1.20 Phosphorus (2.5 - 4.9 MG/DL) 3.5 Magnesium (1.80 - 2.40 mg/dL) 1.82 Laboratory Tests 12/07 0610 Hematology WBC (4.5 - 11.0 x10 3/uL) 9.2 RBC (4.00 - 5.60 x10 6/uL) 4.21 Hgb (12.5 - 16.9 g/dL) 12.9 Hct (37.5 - 50.7 %) 38.2 MCV (81.0 - 99.0 fL) 90.7 MCH (27.0 - 33.0 pg) 30.6 MCHC (33.0 - 37.0 g/dL) 33.8 RDW (11.5 - 14.5 %) 14.3 Plt Count (150 - 400 x10 3/uL) 190 MPV (7.0 - 9.0 fL) 11.1 H Neut % (Auto) (56.0 - 77.0 %) 76.1 Lymph % (Auto) (14.0 - 32.0 %) 5.9 L Carlisle % (Auto) (4.8 - 9.0 %) 14.4 H Eos % (Auto) (0.3 - 3.7 %) 2.0 Baso % (Auto) (0.0 - 2.0 %) 0.9 Neut # (Auto) (2.0 - 7.6 x10 3/uL) 7.01 Lymph # (Auto) (1.0 - 3.8 x10 3/uL) 0.54 L Carlisle # (Auto) (0.1 - 0.8 x10 3/uL) 1.32 H Eos # (Auto) (0.0 - 0.2 x10 3/uL) 0.18 Baso # (Auto) (0.0 - 0.2 x10 3/uL) 0.08 Abs Immat Gran (auto) (0.00 - 0.03 x10 3/uL) 0. 06 H Add Manual Diff NO Immature Gran % (0.0 - 2.0 %) 0.7 Nucleated RBC % (0 - 0 %) 0.0 Nucleated RBCs # (Man) (0.0 - 0.1 x10 3/uL) 0.0 0 Radiology data: Recent Impressions: RADIOLOGY - XR CHEST 1 V 12/07 0652 Report Impression - Status: SIGNED Entered: 12/07/2022 0719 IMPRESSION: Stable exam findings of cardiomegaly with probab le mild pulmonary edema, correlate clinically. Impression By: [email or web address] - Gregoria Vance. RADIOLOGY - XR CHEST 1 V 12/07 1722 Report Impression - Status: SIGNED Entered: 12/07/2022 1833 IMPRESSION: 1. Moderate enlarged cardiac silhouette. 2. Mild interstitial pulmonary edema versus infi ltrates. Impression By: [email or web address] - Bruno Tineo M.D. Results: labs reviewed Diagnosis, Assessment Plan Free Text A P: 1. Acute renal failure on chronic kidney disease , likely due to acute interstitial nephritis from exposure to Bactrim for 1 week. The patient is now off of Bactrim and status post acute hem odialysis x2 doses. Tolerated HD on 3K bath. Access without problems. Will monitor for renal recovery. 2. Hyperkalemia. Corrected with HD. 3. Metabolic acidosis, will correct on hemodialy sis. 4. Bradycardia. The patient is being considered for pacemaker placement. 5. Type 2 diabetes mellitus. 6. Obstructive sleep apnea. 7. Atrial fibrillation. 8. Hyponatremia. We will place the patient on 1. 5 liter free water restriction. 9. Diarrhea. This developed soon after taking Ba ctrim. Resolving with immmodium. Orders: Procedure Date/time Status HEMODIALYSIS ONE EVAL 12/07 1838 Active Initiate Dialysis Protocol 12/07 749 Active Hemodialysis Orders 12/07 749 Active Dialysis PRN Med Parameters 12/07 749 Active Consultants: cardiology, critical/malariologist, e lectrophysiology, nephrology Electronically Signed by Jonah Velazco MD on 3 at 1928 RPT #:[id number] END OF REPORT 2022-12-07 [id number] [facility] 12:27:00-00:[address] [place] [address] PATIENT NAME: JEAN CLAUDE WALLACE ADMIT DATE: ACCOUNT NO: [id number] ROOM NO: [facility] AGE: 72 REPORT TYPE: eECHOCARDIOGRAM REPORT SEX: M ADMITTING PHYSICIAN:Kishan Kulkarni MD ATTENDING PHYSICIAN:Kishan Kulkarni MD *[facility]* [address] [place] [address] Transthoracic Echocardiogram Patient: Jean Claude Wallace Study Date: 12/07/2022 BP: 149 / 67 Location: [facility] URN: [id number] : 1950 Age: 72 Height: 70 in / 177.8 cm Gender: M Weight: 247 .5 lb / 112.5 kg BMI/BSA: 35.6 kg/m 2 / 2.29 m 2 *Ordering Physician: * Penny Toribio metal template maker *Interpreting Physician: * Pedro Calix MD *Pig Handler: * Katie Duong Indications: Evaluate EF. Study data: Transthoracic echocardiogram. Proced ure: Transthoracic echocardiography was performed. Image quality wa s adequate. Complete 2D, complete spectral Doppler, and color Doppler . Location: Bedside. Patient status: Inpatient. Patient room number: 3307. Study status: Stat. Findings Left ventricle: The cavity size is normal. Wall thickness is increased. Systolic function is normal. The estimated eject ion fraction is 55-59%. Although no diagnostic regional wall motion abno rmality is identified, this possibility cannot be completely excluded o n the basis of this study. Left ventricular diastolic function dariusz eters are indeterminate. PATIENT NAME: JEAN CLAUDE WALLACE ACCOUNT #: [id number] Right ventricle: The cavity size is normal. Syst olic function is normal. Systolic pressure is mildly increased. T APSE measurement is estimated at 16-17 mm. RVSP is estimated at 38 m mHg. Left atrium: The atrium is moderately to severel y dilated. Right atrium: The atrium is moderately dilated. Aorta: The aorta is poorly visualized. Aortic ro ot: The aortic root is normal in size. Aortic valve: The valve is structurally normal. The valve is trileaflet. There is no evidence of stenosis. Th ere is no regurgitation. Mitral valve: The valve is structurally normal. There is no evidence of stenosis. There is mild regurgitatio n. Tricuspid valve: The valve is structurally clarissa l. There is mild regurgitation. Pulmonic valve: Not well visualized. The valve i s structurally normal. There is trivial regurgitation. Pericardium: There is no pericardial effusion. Pulmonary arteries: The main pulmonary artery is normal-sized. Systemic veins: Inferior vena cava: The vessel is dilated. The r espirophasic diameter changes are in the normal range (= 50%). Measurements Left ventricle Value Ref TYSHAWN, LAX 5.1 cm 4.2 - 5.8 ESD, LAX 3.5 cm 2.5 - 4.0 ESD/bsa, LAX 1.5 cm/m 2 1.3 - 2.1 FS, LAX 32 % 25 - 43 ESD/bsa major 2.8 cm/m 2 --------- ax, A4C TYSHAWN/bsa minor 2.8 cm/m 2 --------- ax, A4C TYSHAWN major ax, 6.9 cm --------- A2C ESD major ax, 6.4 cm --------- A2C TYSHAWN/bsa major 3.0 cm/m 2 --------- ax, A2C ESD/bsa major 2.8 cm/m 2 --------- ax, A2C PW, ED 1.3 cm 0.6 - 1.0 IVS/PW, ED 1.06 --------- EF 59 % 52 - 72 LVOT Value Ref Diam, S 2.21 cm --------- Area 3.8 cm 2 --------- Peak jose alfredo, S 1.25 m/sec --------- Mean jose alfredo, S 0.77 m/sec --------- VTI, S 20.1 cm --------- Peak grad, S 6 mm Hg --------- PATIENT NAME: JEAN CLAUDE WALLACE ACCOUNT #: [id number] Mean grad, S 3 mm Hg --------- SV 77 ml --------- Qs 5.66 L/min --------- Qs/bsa 2.5 L/(min-m 2) --------- SV/bsa 34 ml/m 2 --------- Ventricular septum Value Ref IVS, ED 1.4 cm 0.6 - 1.0 Right ventricle Value Ref TAPSE, MM 1.6 cm 1.7 - 3.1 Pressure, S 38 mm Hg --------- RVOT Value Ref Peak v, S 0.98 m/sec --------- Peak grad, S 4 mm Hg --------- Left atrium Value Ref AP dim, ES 6.29 cm 3.00 - 4.00 Vol/bsa, ES, 1-p 78 ml/m 2 12 - 37 A4C Vol, ES, 2-p 180 ml --------- Vol/bsa, ES, 2-p 79 ml/m 2 16 - 34 Vol/bsa, ES, A/L 81 ml/m 2 16 - 34 AP dim, ES MM 5.8 cm 3.0 - 4.0 LA/Ao root 1.87 --------- ratio, MM Right atrium Value Ref Area, ES 33 cm 2 10 - 18 SI dim, ES, A4C 8.3 cm 3.4 - 5.3 SI dim/bsa, ES, 3.6 cm/m 2 1.8 - 3.0 A4C Vol, ES, A/L 114 ml --------- Vol, ES, 1-p A4C 109 ml --------- Vol/bsa, ES, 1-p 48 ml/m 2 11 - 39 A4C Aortic valve Value Ref Leaflet sep 3.4 cm --------- Leaflet sep, MM 2.38 cm --------- Peak v, S 1.4 m/sec --------- Mean v, S 0.95 m/sec --------- VTI, S 22.9 cm --------- Mean grad, S 4.2 mm Hg --------- Peak grad, S 7.9 mm Hg --------- LVOT/AV, VTI 0.88 --------- ratio CINTIA, VTI 3.37 cm 2 --------- LVOT/AV, Vpeak 0.89 --------- ratio CINTIA, Vmax 3.44 cm 2 --------- PATIENT NAME: JEAN CLAUDE WALLACE ACCOUNT #: [id number] Mitral valve Value Ref Peak E 0.84 m/sec --------- Peak A 0.25 m/sec --------- Mean v, D 0.53 m/sec --------- VTI leaflet 26.1 cm --------- coapt Decel time 281 ms --------- PHT 50 ms --------- Mean grad, D 1.4 mm Hg --------- Peak grad, D 4.6 mm Hg --------- Peak E/A ratio 3.5 --------- MVA, PHT 4.1 cm 2 --------- Pulmonic valve Value Ref MT v, ED 0.73 m/sec --------- Tricuspid valve Value Ref TR peak v 2.96 m/sec <=2.8 Peak RV-RA grad, 35 mm Hg --------- S Aortic root Value Ref Root diam, ED MM 3.10 cm --------- Ascending aorta Value Ref AAo AP diam, S 2.6 cm --------- AAo AP diam/bsa, 1.1 cm/m 2 --------- S Pulmonary artery Value Ref Pressure, S 33.0 mm Hg --------- Systemic veins Value Ref Estimated CVP 3 mm Hg --------- Conclusions Summary: 1. Left ventricle: The cavity size is normal. Wa ll thickness is increased. Systolic function is normal. The est imated ejection fraction is 55-59%. Although no diagnostic hammad onal wall motion abnormality is identified, this possibility can not be completely excluded on the basis of this study. Left ventr icular diastolic function parameters are indeterminate. 2. Right ventricle: Systolic pressure is mildly increased. 3. Left atrium: The atrium is moderately to north rely dilated. 4. Right atrium: The atrium is moderately dilate d. Prepared and electronically signed by PATIENT NAME: JEAN CLAUDE WALLACE ACCOUNT #: [id number] Pedro Calix MD 12/07/2022 12:26 Electronically Signed by Pedro Calix MD on 0 12/07/22 at 1227 PATIENT NAME: JEAN CLAUDE WALLACE ACCOUNT #: [id number] 2022-12-07 [facility] 11:13:00-00:00 [facility] Critical Care Progress Note REPORT#:[id number] REPORT STATUS: Signed DATE:12/07/22 TIME: 1113 PATIENT: JEAN CLAUDE WALLACE UNIT #: [id number] ROOM/BED: [place] [address] : [birth year] AGE: 72 SEX: M ATTEND: Cisco Kulkarni MD ADM AUTHOR: Clara Mary CNP * ALL edits or amendments must be made on the [employer] document * See Addendum Subjective Chief complaint: Severe bradycardia HPI: This is a 72 years old male with medical history significant for hypertension, hyperlipidemia, diabetes mellitus, atrial fibril lation, and JAMEY, who was admitted to [facility] 3 day s ago as he was found with severe hyperkalemia and acute renal failure that was done on an outpatient basis. Patient underwent umbilical herni a repair 9 days ago and was discharged home on Bactrim prophylactically and he was foun d to have significant hyperkalemia before discharg e. The patient was transferred to us for EP consult for possible pacemaker placement. The patient ochoa d hemodialysis earlier in the morning. The patient is asymptomatic from his br adycardia. He was admitted to CCU for further observation and management. Objective General VS/I O Last Documented: Result Date Time Pulse Ox 95 12/07 0815 B/P 149/67 12/07 0815 B/P Mean 96 12/07 0815 Pulse 75 12/07 0815 Resp 14 12/07 0815 O2 Delivery Room air 12/07 06 Temp 99.7 12/07 0600 24 hour I O ending at 0700: 12/07 0700 12/06 1900 Intake Total 196.00 1091.00 Output Total 875 1075 Balance -679.00 16.00 Intake, IV 196.00 371.00 Intake, Oral 720 Number 1 0 Bowel Movements Output, Urine 875 1075 Patient 112.8 kg Weight Weight Bed scale Measurement Method PATIENT WEIGHT: Weight (lb): 248 Weight (oz): 10.9 Weight (kg): 112.800 Medications: Active Meds + DC'd Last 24 Hrs Mupirocin (BACTROBAN 2% 22 GM OINTMENT) 1 APPLIC BID NASAL Magnesium Sulfate/Dextrose (MAGNESIUM SULFATE 1G M/D5W 100ML) 100 ML ONCE ONE IV (DC) Isoproterenol HCl (isoproterenol HCL) 1 MG TITRA TE IV (CKD) Sodium Chloride (SODIUM CHLORIDE 0.9%) 500 ML Allopurinol (ZYLOPRIM) 200 MG BEDTIME PO Atorvastatin Calcium (LIPITOR) 40 MG 2100 PO Albumin Human (ALBUMINAR-25%) 12.5 GM ASDIR PRN IV Heparin Sodium (Porcine) (HEPARIN SODIUM) 3,000 UNIT ASDIR PRN DIALYSIS Lidocaine HCl (LIDOCAINE HCL/PF) 0.5 ML ASDIR MT N I-DERMAL (CKD) Mannitol (Mannitol 20%) 12.5 GM ASDIR PRN IV Sodium Chloride (SODIUM CHLORIDE 0.9%) 2,000 ML ASDIR PRN IV Sodium Chloride (SODIUM CHLORIDE) 5 ML ASDIR PRN IV Sodium Chloride (SODIUM CHLORIDE) 10 ML ASDIR MT N IV Sodium Chloride (SODIUM CHLORIDE 0.9%) 250 ML DIR PRN IV Fludrocortisone Acetate (FLORINEF ACETATE) 0.1 M G DAILY PO Insulin Glargine (Semglee) 10 UNIT BID SUBQ Insulin Human Lispro (HUMALOG) 0 AC HS SUBQ Ceftriaxone Sodium (ROCEPHIN 1000MG VIAL) 1,000 MG Q24H IV Sodium Chloride (SODIUM CHLORIDE) 10 ML Acetaminophen (TYLENOL) 650 MG Q4H PRN PRN PO Dextrose/Water (DEXTROSE 10% IN WATER) 125 ML DIR PRN IV (CKD) Dextrose/Water (DEXTROSE 10% IN WATER) 250 ML DIR PRN IV (CKD) Docusate Sodium (COLACE) 100 MG BID PRN PRN PO Glucagon (GLUCAGON) 1 MG ASDIR PRN IM Loperamide HCl (IMODIUM CAPSULE) 2 MG Q4H PRN MT N PO Ondansetron HCl (ZOFRAN) 4 MG Q4H PRN PRN IV Dopamine HCl/Dextrose (DOPamine 400MG/D5W 250ML) 250 ML ASDIR IV Results Findings/data: Laboratory Tests 12/07 12/07 12/06 12/06 12/06 0746 0610 2038 1622 1126 Chemistry Sodium (134 - 147 mEq/L) 133 L Potassium (3.4 - 5.0 mEq/L) 4.5 Chloride (100 - 108 mEq/L) 98 L Carbon Dioxide (21 - 33 mEq/l) 27 Anion Gap (0 - 20) 12 BUN (7 - 18 mg/dL) 38 H Creatinine (0.6 - 1.3 mg/dL) 3.0 H Glomerular Filtr Rate (70 - 80) 21.7 L Glucose (70 - 110 mg/dL) 139 H POC Glucose (70 - 110 MG/DL) 146 H 235 H 162 H 172 H Calcium (8.0 - 10.5 mg/dL) 9.2 Ionized Calcium Ly (1.09 - 1.30 MMOL/L) 1.20 Phosphorus (2.5 - 4.9 MG/DL) 3.5 Magnesium (1.80 - 2.40 mg/dL) 1.82 Laboratory Tests 12/07 0610 Hematology WBC (4.5 - 11.0 x10 3/uL) 9.2 RBC (4.00 - 5.60 x10 6/uL) 4.21 Hgb (12.5 - 16.9 g/dL) 12.9 Hct (37.5 - 50.7 %) 38.2 MCV (81.0 - 99.0 fL) 90.7 MCH (27.0 - 33.0 pg) 30.6 MCHC (33.0 - 37.0 g/dL) 33.8 RDW (11.5 - 14.5 %) 14.3 Plt Count (150 - 400 x10 3/uL) 190 MPV (7.0 - 9.0 fL) 11.1 H Neut % (Auto) (56.0 - 77.0 %) 76.1 Lymph % (Auto) (14.0 - 32.0 %) 5.9 L Carlisle % (Auto) (4.8 - 9.0 %) 14.4 H Eos % (Auto) (0.3 - 3.7 %) 2.0 Baso % (Auto) (0.0 - 2.0 %) 0.9 Neut # (Auto) (2.0 - 7.6 x10 3/uL) 7.01 Lymph # (Auto) (1.0 - 3.8 x10 3/uL) 0.54 L Carlisle # (Auto) (0.1 - 0.8 x10 3/uL) 1.32 H Eos # (Auto) (0.0 - 0.2 x10 3/uL) 0.18 Baso # (Auto) (0.0 - 0.2 x10 3/uL) 0.08 Abs Immat Gran (auto) (0.00 - 0.03 x10 3/uL) 0. 06 H Add Manual Diff NO Immature Gran % (0.0 - 2.0 %) 0.7 Nucleated RBC % (0 - 0 %) 0.0 Nucleated RBCs # (Man) (0.0 - 0.1 x10 3/uL) 0.0 0 Laboratory Tests 12/07/22 0610: [Embedded Image Not Available] Microbiology: 12/05 0449 URINE: Urine Culture - COMP 12/05 0030 NASAL: MRSA DNA Surveillance Screen - COMP Radiology data Recent Impressions: RADIOLOGY - XR CHEST 1 V 12/07 0652 Report Impression - Status: SIGNED Entered: 12/07/2022 0719 IMPRESSION: Stable exam findings of cardiomegaly with probab le mild pulmonary edema, correlate clinically. Impression By: [email or web address] - Jacxelyn R Gupta, M. D. 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 DM type 2 (diabetes mellitus, type 2) 2. Dyslipidemia 3. JAMEY (obstructive sleep apnea) 4. Afib 5. Bradycardia 6. Acute renal failure (ARF) 7. Leukocytosis This is a 72 years old male with medical history significant for hypertension, hyperlipidemia, diabetes mellitus, atrial fibril lation, and JAMEY, who was admitted to [facility] 3 day s ago as he was found with severe hyperkalemia and acute renal failure that was done on an outpatient basis. Patient underwent umbilical herni a repair 9 days ago and was discharged home on Bactrim prophylactically and he was foun d to have significant hyperkalemia before discharg e. The patient was transferred to us for EP consult for possible pacemaker placement. The patient ochoa d hemodialysis earlier in the morning. The patient is asymptomatic from his br adycardia. He was admitted to CCU for further observation and management. 12/07/2022 Neuro: AO x3, no distress Cardio: Junctional rhythm/bradycardia sick sinus syndrom e - PPM placement today Cardio consulted, pending recs 12/07 Echo ordered, pending result On Isoproterenol drip at 0.5 mcg/min, titrate to keep HR >60 DC Dopamine drip Hypertension History of longstanding persistent atrial fibril lation On statin EP following Resp: On RA, saturating well Hx obstrutive sleep apnea Continue with home CPAP GI/Endo: NPO for PPM placement today Type 2 diabetes mellitus Glycemic control ISS, glucochecks ACHS On Semglee 10 units BID Bowel care Continue Allopurinol : HD today remove 1L Acute renal failure on chronic kidney disease, l ikely due to acute interstitial nephritis from exposure to Bactrim for 1 week - HD per Nephro Patient came with RIJ hemodialysis catheter plac ed at [facility] 1.5 liter free water restriction On corticosteroids Avoid sulfa drugs, NSAIDs and IV contrast exposu re Monitor renal function, I O, weigh daily Monitor electrolytes and replete as needed Nephro following Heme/ID: Afebrile Mild leukocytosis MRSA negative On Rocephin 1 g IV every 24 hours pending result s of the UA Monitor CBC and transfuse as needed Musc: Check right groin puncture site - failed attempt for trialysis placement at [facility] Skin care Pressure injury prevention Activity as tolerated DVT prophylaxis: SCD Dispo: CCU. Patient is full code. I spent 38 minutes of critic al care reviewing labs, imaging and discussing plan of care with ICC team, patient, family and nurse . Consultants: cardiology, critical/malariologist, e lectrophysiology, nephrology Code status: full code Plan discussed with: patient, family, nurse, int erdisc care team, pharmacy/ pharmacist Critical care time: Minutes: 38 Quality: Gen Med Crit Care VTE Prophylaxis VTE prophylaxis initiated: yes Current Medications Current medication review: I attest that the foregoing medication list in t he medical record is true, accurate, and complete to the best of my knowled ge. Advanced Care Plan 65 or Older Discussed with: patient Discussion included: living will (yes), power of ip technology transactions attorney (yes), code status ( full code) at 1341 Addendum 1: 12/07/22 175 by Clara Mary CNP Patient's status post pacemaker placement. Postp rocedure chest x-ray done. Patient awake alert oriented denies pain. Procedure site with pressure dressing and left arm with arm sling in place. Postproced ure pacemaker interrogation done at bedside by a vendor. at 8446 RPT #:[id number] END OF REPORT 2022-12-07 [facility] 10:04:00-00:00 [facility] Cardiology Consultation REPORT#:[id number] REPORT STATUS: Signed DATE:12/07/22 TIME: 1004 PATIENT: JEAN CLAUDE WALLACE UNIT #: [id number] ROOM/BED: 3307-1 : 52 AGE: 72 SEX: M ATTEND: Cisco Kulkarni MD ADM AUTHOR: Penny Toribio DIPLOMA DENTAL ASSISTANT * ALL edits or amendments must be made on the [employer]/computer document * History of Present Illness HPI Requesting Clinician: Dr Kulkarni Reason for consult: Bradycardia Chief complaint: Dizziness PCP: PCP: No Primary or Family Physician HPI: 72 YO male with MHx of paroxysmal atrial fibrill ation (on Pradaxa, Coreg, and Digoxin), diastolic CHF (on Lasix and potassium) , DM, HLD, HTN, JAMEY (on CPAP) who is here due to symptomatic bradycardia, acut e kidney failure, and hyperkalemia. We are consulted for cardiac evalu ation. The patient had hernia repair more then 1 week ago. He was discharged home on Bactrim. The patient was not feeling well since then, he was dizzy, weak, and overall doing poorly. He presented to [facility] where he was found t o have acute kidney failure, severe hyperkalemia, and ext lavinia bradycardia. He is transferred to our facility for PPM consideration. His bradycardia was initi ally thought to be due to hyperkalemia, however he has been started on hem odialysis, potassium has been corrected and his bradycardia persisted to almost asystole. His kidney failure was being attributed to reaction to Bactrim. The patient denies chest pain. Denies history of CAD, CVA. Hx Obtained From Patient, Spouse History - Adult longitudinal Past medical history: Reports: Atrial fibrillation, Congestive heart failure, Anticoagulant therapy. Denies: Coronary artery disease, Depression/mood disorder, Ischemic stroke, Prior [place]. Past surgical history: Reports: Appendectomy, Hernia repair. Alcohol use: Alcohol use (1-7 drinks per week) Drug use: Denies recreational drugs Smoking status for patients 13 years old or olde r: Never Smoker Home medications: Home Medications: ACETAMINOPHEN (TYLENOL) 650 MG PO Q6H PRN PRN OCHOA AND FEVER ALBUTEROL (ALBUTEROL 2.5 MG/3 ML (75mL)) 2.5 MG NEB RTQ4H diphenhydrAMINE (BENADRYL) 25 MG PO BEDTIME PRN INSOMNIA FLUDROCORTISONE ACETATE (FLORINEF) 0.1 MG PO KEMAR LY DEXTROSE 10%-WATER (D10W) 125 ML IV ASDIR PRN HY POGLYCEMIA INSULIN GLARGINE (LANTUS) 10 UNITS SUBQ BID INSULIN REGULAR (NovoLIN R) 0 UNITS SUBQ AC HS ROSUVASTATIN (CRESTOR) 20 MG PO BEDTIME ONDANSETRON 4 MG IV Q6H PRN PRN NAUSEA AND VOMIT ING POTASSIUM CHLORIDE ER (KLOR-CON 10) 10 MEQ PO DA AUBREE FUROSEMIDE (LASIX) 40 MG PO DAILY GlipiZIDE/METFORMIN HCL (GLIPIZIDE-METFORMIN 2.5 -500 MG) 1 TAB PO BID MEALS CARVEDILOL (COREG) 25 MG PO BID MEALS DIGOXIN (LANOXIN) 0.25 MG PO DAILY DABIGATRAN (PRADAXA) 150 MG PO DAILY LISINOPRIL (ZESTRIL) 40 MG PO DAILY ALLOPURINOL (ZYLOPRIM) 300 MG PO BEDTIME LIRAGLUTIDE (VICTOZA (6mL)) 1.25 ML SUBQ DAILY FENOFIBRATE 67 MG PO DAILY Allergies: Coded Allergies: sulfamethoxazole (From BACTRIM) (Severe, KIDNEY FAILURE 12/05/22) trimethoprim (From BACTRIM) (Severe, KIDNEY FAIL URE 12/05/22) Review of Systems Additional notes: As stated in HPI Objective General VS/I O: Vital Signs: Date Time Temp Pulse Resp B/P B/P Pulse O2 O2 F low FiO2 Mean Ox Delivery Rate 12/07 0815 75 14 149/67 96 95 12/07 0800 75 16 130/70 94 95 12/07 0755 72 18 149/71 100 93 12/07 0745 81 16 134/71 97 93 12/07 0732 83 17 145/67 96 92 12/07 0730 87 17 140/65 93 92 12/07 0712 89 17 144/66 95 92 12/07 0600 37.6 95 Room air 12/07 0300 86 28 136/65 93 95 12/07 0230 97 20 132/61 88 93 07/31 0200 72 14 135/64 92 95 07/31 0130 73 15 126/65 89 93 07/31 0101 75 15 137/61 88 93 07/31 0031 73 31 162/72 103 95 07/31 0001 64 15 140/63 90 94 07/31 0000 36.7 18 Nasal CPAP 0730 2301 72 40 131/66 92 94 07/30 2136 78 51 158/70 100 94 07/30 2100 63 15 156/70 101 93 07/30 2045 72 24 151/71 102 93 07/30 2030 87 21 159/73 105 93 07/30 1999 37.2 20 96 Room air 0730 1999 81 25 158/72 104 96 07/30 1945 81 16 157/72 103 95 07/30 1930 81 34 159/70 107 96 07/30 1915 81 24 157/74 106 96 07/30 1900 81 30 167/78 112 97 07/30 1800 81 24 175/74 106 96 07/30 1745 66 34 168/76 109 95 07/30 1730 76 28 161/72 104 95 07/30 1715 69 22 167/77 110 96 07/30 1706 54 20 156/72 104 94 07/30 1701 59 27 170/78 112 96 07/30 1645 53 25 149/67 97 96 07/30 1630 80 31 167/75 108 97 07/30 1615 79 17 166/75 108 94 07/30 1600 36.3 07/30 1600 78 18 170/75 108 96 07/30 1545 72 26 177/74 107 96 07/30 1530 79 22 169/74 107 97 07/30 1515 80 26 169/75 108 97 07/30 1500 73 27 163/74 106 97 07/30 1445 80 30 165/80 114 97 07/30 1430 80 21 160/75 108 96 07/30 1415 80 25 159/76 109 97 07/30 1400 80 18 158/76 109 97 07/30 1345 80 21 160/75 108 98 07/30 1330 80 15 173/79 114 97 07/30 1321 80 27 166/74 107 97 07/30 1315 80 19 177/82 118 98 07/30 1300 80 22 166/71 110 98 07/30 1245 80 19 168/78 112 97 07/30 1230 80 17 167/75 108 97 07/30 1215 80 18 163/79 113 96 12/06 1200 36.3 12/06 1200 80 31 165/75 108 97 12/06 1145 83 24 163/74 106 95 12/06 1133 80 26 168/79 113 95 12/06 1130 80 17 170/77 111 96 12/06 1125 80 18 165/80 115 95 12/06 1115 80 20 174/81 116 95 12/06 1110 80 39 160/77 110 96 12/06 1105 65 26 168/80 115 95 12/06 1100 54 18 168/79 113 96 12/06 1055 64 22 159/76 109 96 12/06 1052 77 31 175/79 114 96 12/06 1050 70 17 174/83 119 96 12/06 1045 76 15 174/81 117 96 12/06 1030 82 19 161/76 109 96 12/06 1028 80 11 162/77 111 97 12/06 1026 81 18 174/78 112 95 12/06 1015 80 16 173/80 115 96 24 hour I O ending at 0700: 12/07 0700 12/06 1900 Intake Total 196.00 1091.00 Output Total 875 1075 Balance -679.00 16.00 Intake, IV 196.00 371.00 Intake, Oral 720 Number 1 0 Bowel Movements Output, Urine 875 1075 Patient 112.8 kg Weight Weight Bed scale Measurement Method PATIENT WEIGHT: Weight (lb): 248 Weight (oz): 10.9 Weight (kg): 112.800 Medications: Active Meds + DC'd Last 24 Hrs Mupirocin (BACTROBAN 2% 22 GM OINTMENT) 1 APPLI C BID NASAL Magnesium Sulfate/Dextrose (MAGNESIUM SULFATE 1G M/D5W 100ML) 100 ML ONCE ONE IV (DC) Isoproterenol HCl (isoproterenol HCL) 1 MG TITRA TE IV (CKD) Sodium Chloride (SODIUM CHLORIDE 0.9%) 500 ML Allopurinol (ZYLOPRIM) 200 MG BEDTIME PO Atorvastatin Calcium (LIPITOR) 40 MG 2100 PO Albumin Human (ALBUMINAR-25%) 12.5 GM ASDIR PRN IV Heparin Sodium (Porcine) (HEPARIN SODIUM) 3,000 UNIT ASDIR PRN DIALYSIS Lidocaine HCl (LIDOCAINE HCL/PF) 0.5 ML ASDIR MT N I-DERMAL (CKD) Mannitol (Mannitol 20%) 12.5 GM ASDIR PRN IV Sodium Chloride (SODIUM CHLORIDE 0.9%) 2,000 ML ASDIR PRN IV Sodium Chloride (SODIUM CHLORIDE) 5 ML ASDIR PRN IV Sodium Chloride (SODIUM CHLORIDE) 10 ML ASDIR MT N IV Sodium Chloride (SODIUM CHLORIDE 0.9%) 250 ML DIR PRN IV Fludrocortisone Acetate (FLORINEF ACETATE) 0.1 M G DAILY PO Insulin Glargine (Semglee) 10 UNIT BID SUBQ Insulin Human Lispro (HUMALOG) 0 AC HS SUBQ Ceftriaxone Sodium (ROCEPHIN 1000MG VIAL) 1,000 MG Q24H IV Sodium Chloride (SODIUM CHLORIDE) 10 ML Acetaminophen (TYLENOL) 650 MG Q4H PRN PRN PO Dextrose/Water (DEXTROSE 10% IN WATER) 125 ML DIR PRN IV (CKD) Dextrose/Water (DEXTROSE 10% IN WATER) 250 ML DIR PRN IV (CKD) Docusate Sodium (COLACE) 100 MG BID PRN PRN PO Glucagon (GLUCAGON) 1 MG ASDIR PRN IM Loperamide HCl (IMODIUM CAPSULE) 2 MG Q4H PRN MT N PO Ondansetron HCl (ZOFRAN) 4 MG Q4H PRN PRN IV Dopamine HCl/Dextrose (DOPamine 400MG/D5W 250ML) 250 ML ASDIR IV Physical Exam General appearance: no acute distress Neck: full range of motion, non-tender, no JVD Cardiovascular: CV assessment: irregularly irregular Respiratory: clear to auscultation, no distress Abdomen: distended Lower extremity: LE assessment: normal capillary refill, no jared a Musculoskeletal: normal inspection 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, oriented X 3, normal speech Skin: dry, intact, normal color Psychiatry: normal affect, normal judgment/insig ht, normal mood Results Findings/Data: Laboratory Tests 12/07 12/07 12/06 12/06 12/06 0746 0610 2038 1622 1126 Chemistry Sodium (134 - 147 mEq/L) 133 L Potassium (3.4 - 5.0 mEq/L) 4.5 Chloride (100 - 108 mEq/L) 98 L Carbon Dioxide (21 - 33 mEq/l) 27 Anion Gap (0 - 20) 12 BUN (7 - 18 mg/dL) 38 H Creatinine (0.6 - 1.3 mg/dL) 3.0 H Glomerular Filtr Rate (70 - 80) 21.7 L Glucose (70 - 110 mg/dL) 139 H POC Glucose (70 - 110 MG/DL) 146 H 235 H 162 H 172 H Calcium (8.0 - 10.5 mg/dL) 9.2 Ionized Calcium Ly (1.09 - 1.30 MMOL/L) 1.20 Phosphorus (2.5 - 4.9 MG/DL) 3.5 Magnesium (1.80 - 2.40 mg/dL) 1.82 Laboratory Tests 12/07 0610 Hematology WBC (4.5 - 11.0 x10 3/uL) 9.2 RBC (4.00 - 5.60 x10 6/uL) 4.21 Hgb (12.5 - 16.9 g/dL) 12.9 Hct (37.5 - 50.7 %) 38.2 MCV (81.0 - 99.0 fL) 90.7 MCH (27.0 - 33.0 pg) 30.6 MCHC (33.0 - 37.0 g/dL) 33.8 RDW (11.5 - 14.5 %) 14.3 Plt Count (150 - 400 x10 3/uL) 190 MPV (7.0 - 9.0 fL) 11.1 H Neut % (Auto) (56.0 - 77.0 %) 76.1 Lymph % (Auto) (14.0 - 32.0 %) 5.9 L Carlisle % (Auto) (4.8 - 9.0 %) 14.4 H Eos % (Auto) (0.3 - 3.7 %) 2.0 Baso % (Auto) (0.0 - 2.0 %) 0.9 Neut # (Auto) (2.0 - 7.6 x10 3/uL) 7.01 Lymph # (Auto) (1.0 - 3.8 x10 3/uL) 0.54 L Carlisle # (Auto) (0.1 - 0.8 x10 3/uL) 1.32 H Eos # (Auto) (0.0 - 0.2 x10 3/uL) 0.18 Baso # (Auto) (0.0 - 0.2 x10 3/uL) 0.08 Abs Immat Gran (auto) (0.00 - 0.03 x10 3/uL) 0. 06 H Add Manual Diff NO Immature Gran % (0.0 - 2.0 %) 0.7 Nucleated RBC % (0 - 0 %) 0.0 Nucleated RBCs # (Man) (0.0 - 0.1 x10 3/uL) 0.0 0 Laboratory Tests 12/07 0610 Chemistry Magnesium (1.80 - 2.40 mg/dL) 1.82 Radiology Data: Recent Impressions: RADIOLOGY - XR CHEST 1 V 12/07 0652 Report Impression - Status: SIGNED Entered: 12/07/2022718 IMPRESSION: Stable exam findings of cardiomegaly with probab le mild pulmonary edema, correlate clinically. Impression By: [email or web address] Gregoria Armstrong Results: labs reviewed, vital signs reviewed, [facility] personally rev'd Telemetry Interpretation: afib with controlled rate. Diagnosis, Assessment Plan Plan discussed with: patient , spouse/partner, collaborating MD, consultants (EP) , nurse Free Text DxA P Notes Free Text DxA P Notes: 72 YO male with MHx of paroxysmal atrial fibrill ation (on Pradaxa, Coreg, and Digoxin), diastolic CHF (on Lasix and potassium) , DM, HLD, HTN, JAMEY (on CPAP) who is here due to symptomatic bradycardia, acut e kidney failure, and hyperkalemia. We are consulted for cardiac evalu ation. The patient had hernia repair more then 1 week ago. He was discharged home on Bactrim. The patient was not feeling well since then, he was dizzy, weak, and overall doing poorly. He presented to [facility] where he was found t o have acute kidney failure, severe hyperkalemia, and ext lavinia bradycardia. He is transferred to our facility for PPM consideration. His bradycardia was initi ally thought to be due to hyperkalemia, however he has been started on hem odialysis, potassium has been corrected and his bradycardia persisted to almost asystole. His kidney failure was being attributed to reaction to Bactrim. The patient denies chest pain. Denies history of CAD, CVA. 1. Symptomatic bradycardia * Echo reviewed - normal EF * EP planning for PPM today 2. Atrial fibrillation with sick sinus syndrome * PPM placement today * hold Pradaxa 3. Acute kidney injury - probable reaction to Ba ctrim * on Hemodialysis * per nephrology 4. Hyperkalemia - Potassium corrected 5. Diabetes mellitus * manage per primary team 6. Hypertension * BP stable * hold BB, will resume post PPM placement Appreciate the referral. MDM by Dr. Calix. at 1436 RPT #:[id number] END OF REPORT 2022-12-06 [facility] 22:55:00-00:00 [facility] Hospitalist Progress Note REPORT#:[id number] REPORT STATUS: Signed DATE:12/06/22 TIME: 2254 PATIENT: JEAN CLAUDE WALLACE UNIT #: [id number] ROOM/BED: [place] [id number] : [birth year] AGE: 72 SEX: M ATTEND: Cisco Kulkarni MD ADM AUTHOR: Nisha Meeks MD * ALL edits or amendments must be made on the [employer]/computer document * Subjective Chief complaint: Transferred from [facility] for possi ble pacemaker insertion due to severe bradycardia/idioventricular rhythm HPI: 72-year-old man with past medical history of ana betes, dyslipidemia, atrial fibrillation and obstructive sleep apnea that wa s admitted to [facility] 3 days ago when his find out to have severe hyperkalemia and acute renal failure on routine blood work done with [facility] primary care this past Wednesday. Patient underwent umbilical hernia re pair 9 days ago without any complication. Patient was discharged home on Grecia trim prophylactically. Wants to sign out to have severe hyperkalemia and acut e renal failure this past Wednesday patient was admitted to the hospital. Patient was found to have severe bradycardia with hear t rate in the 20s and 30s the initial thought to be secondary to his hyperkalemia and acute renal fa ilure. Patient required hemodialysis to treat his hyperkalemia a nd after hyperkalemia was resolved his heart rate did not improve. Has been thought jeremias t the reason for the acute renal failure is due to Bactrim in addition to b owling depletion. Patient was transferred here to be evaluated for pacemaker p lacement. Patient currently does not have any complaints. Objective General VS/I O: Vital Signs: Date Time Temp Pulse Resp B/P B/P Pulse O2 O2 F low FiO2 Mean Ox Delivery Rate 07/30 1800 81 24 175/74 106 96 07/30 1745 66 34 168/76 109 95 07/30 1730 76 28 161/72 104 95 07/30 1715 69 22 167/77 110 96 07/30 1706 54 20 156/72 104 94 07/30 1701 59 27 170/78 112 96 07/30 1645 53 25 149/67 97 96 07/30 1630 80 31 167/75 108 97 07/30 1615 79 17 166/75 108 94 07/30 1600 97.4 07/30 1600 78 18 170/75 108 96 07/30 1545 72 26 177/74 107 96 07/30 1530 79 22 169/74 107 97 07/30 1515 80 26 169/75 108 97 07/30 1500 73 27 163/74 106 97 07/30 1445 80 30 165/80 114 97 07/30 1430 80 21 160/75 108 96 07/30 1415 80 25 159/76 109 97 07/30 1400 80 18 158/76 109 97 07/30 1345 80 21 160/75 108 98 07/30 1330 80 15 173/79 114 97 07/30 1321 80 27 166/74 107 97 07/30 1315 80 19 177/82 118 98 07/30 1300 80 22 166/71 110 98 07/30 1245 80 19 168/78 112 97 07/30 1230 80 17 167/75 108 97 07/30 1215 80 18 163/79 113 96 07/30 1200 97.4 07/30 1200 80 31 165/75 108 97 07/30 1145 83 24 163/74 106 95 07/30 1133 80 26 168/79 113 95 07/30 1130 80 17 170/77 111 96 07/30 1125 80 18 165/80 115 95 07/30 1115 80 20 174/81 116 95 07/30 1110 80 39 160/77 110 96 07/30 1105 65 26 168/80 115 95 07/30 1100 54 18 168/79 113 96 07/30 1055 64 22 159/76 109 96 07/30 1052 77 31 175/79 114 96 07/30 1050 70 17 174/83 119 96 07/30 1045 76 15 174/81 117 96 07/30 1030 82 19 161/76 109 96 07/30 1028 80 11 162/77 111 97 07/30 1026 81 18 174/78 112 95 07/30 1015 80 16 173/80 115 96 07/30 1000 65 22 152/77 108 96 07/30 0945 79 34 158/71 102 96 07/30 0930 81 26 170/80 115 96 07/30 0915 78 19 162/76 109 97 07/30 0900 79 22 163/76 109 96 07/30 0849 83 35 161/78 112 96 07/30 0847 81 33 173/78 112 96 07/30 0845 91 33 173/82 118 95 07/30 0830 79 21 156/79 111 95 07/30 0815 77 12 137/66 95 93 07/30 0800 96.8 07/30 0800 75 10 145/67 96 93 07/30 0745 77 18 158/70 101 93 07/30 0730 75 14 153/70 101 92 07/30 0715 76 16 158/74 107 95 07/30 0712 75 23 147/73 103 94 07/30 0545 56 15 134/59 85 95 07/30 0530 101 32 139/68 98 95 07/30 0515 70 13 140/65 93 93 07/30 0500 73 9 132/63 91 93 07/30 0445 72 5 130/62 89 93 07/30 0430 70 13 138/65 94 94 07/30 0415 72 10 119/58 84 94 07/30 0400 98.2 07/30 0400 73 9 119/59 84 93 07/30 0345 73 10 124/60 87 93 07/30 0330 70 15 155/70 101 93 07/30 0315 71 12 165/77 110 93 07/30 0300 84 9 124/58 83 92 07/30 0245 88 11 132/60 87 92 07/30 0230 89 12 137/63 91 91 07/30 0215 94 12 152/71 102 92 07/30 0200 85 16 151/72 104 91 07/30 0155 97 10 149/69 99 91 07/30 0150 84 14 146/71 102 92 07/30 0145 113 4 161/71 106 91 07/30 0140 114 9 159/75 108 93 07/30 0135 114 18 159/86 114 96 12/06 0130 118 15 160/74 106 95 12/06 0125 119 11 164/74 106 96 12/06 0120 119 15 171/74 107 96 12/06 0115 113 13 169/83 118 97 12/06 0100 41 19 161/81 114 97 12/06 0045 107 11 162/87 117 97 12/06 0040 43 17 149/74 105 98 12/06 0030 107 13 166/86 119 97 12/06 0024 107 14 164/87 117 97 12/06 0015 107 17 163/92 118 98 12/06 0000 98.0 12/06 0000 39 29 158/76 109 97 12/05 2346 92 23 139/68 96 95 12/05 2330 106 19 157/81 110 96 12/05 2315 106 17 160/81 113 95 12/05 2300 109 18 150/79 108 94 24 hour I O ending at 0700: 12/06 0700 12/05 1900 Intake Total 694.00 Output Total 1999 250 Balance -1999 444.00 Intake, IV 94.00 Intake, Oral 600 Number Voids 2 Output, 1999 Hemodialysis Output, Urine 250 PATIENT WEIGHT: Weight (lb): 235 Weight (oz): 14.31 Weight (kg): 107.000 Medications: Active Meds + DC'd Last 24 Hrs Isoproterenol HCl (isoproterenol HCL) 1 MG TITRA TE IV (CKD) Sodium Chloride (SODIUM CHLORIDE 0.9%) 500 ML Allopurinol (ZYLOPRIM) 200 MG BEDTIME PO Atorvastatin Calcium (LIPITOR) 40 MG 2100 PO Albumin Human (ALBUMINAR-25%) 12.5 GM ASDIR PRN IV Heparin Sodium (Porcine) (HEPARIN SODIUM) 3,000 UNIT ASDIR PRN DIALYSIS Lidocaine HCl (LIDOCAINE HCL/PF) 0.5 ML ASDIR MT N I-DERMAL (CKD) Mannitol (Mannitol 20%) 12.5 GM ASDIR PRN IV Sodium Chloride (SODIUM CHLORIDE 0.9%) 2,000 ML ASDIR PRN IV Sodium Chloride (SODIUM CHLORIDE) 5 ML ASDIR PRN IV Sodium Chloride (SODIUM CHLORIDE) 10 ML ASDIR MT N IV Sodium Chloride (SODIUM CHLORIDE 0.9%) 250 ML DIR PRN IV Fludrocortisone Acetate (FLORINEF ACETATE) 0.1 M G DAILY PO Insulin Glargine (Semglee) 10 UNIT BID SUBQ Insulin Human Lispro (HUMALOG) 0 AC HS SUBQ Ceftriaxone Sodium (ROCEPHIN 1000MG VIAL) 1,000 MG Q24H IV Sodium Chloride (SODIUM CHLORIDE) 10 ML Acetaminophen (TYLENOL) 650 MG Q4H PRN PRN PO Dextrose/Water (DEXTROSE 10% IN WATER) 125 ML DIR PRN IV (CKD) Dextrose/Water (DEXTROSE 10% IN WATER) 250 ML DIR PRN IV (CKD) Docusate Sodium (COLACE) 100 MG BID PRN PRN PO Glucagon (GLUCAGON) 1 MG ASDIR PRN IM Loperamide HCl (IMODIUM CAPSULE) 2 MG Q4H PRN MT N PO Ondansetron HCl (ZOFRAN) 4 MG Q4H PRN PRN IV Dopamine HCl/Dextrose (DOPamine 400MG/D5W 250ML) 250 ML ASDIR IV Physical Exam General appearance: no acute distress Head/Eyes: atraumatic, EOMI, normal conjunctiva/sclera, normal eyelids/periorb., normocephalic ENT: moist mucosal membranes Neck: full range of motion, no bruit/NL carotids , no JVD Cardiovascular: bradycardic, normal heart sounds Respiratory: aerating well, clear to auscultatio n, symmetric expansion, no distress Abdomen: non-tender, normal bowel sounds, soft, no distention, no guarding Extremities: moves all, no cyanosis, no edema 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, oriented X 3, normal speech, n o motor deficits, no sensory deficits Skin: intact, normal color, no rash Results Findings/Data: Laboratory Tests 12/06 12/06 12/06 12/06 12/06 2038 1622 1126 0741 0622 Chemistry Sodium (134 - 147 mEq/L) 133 L Potassium (3.4 - 5.0 mEq/L) 4.4 Chloride (100 - 108 mEq/L) 100 Carbon Dioxide (21 - 33 mEq/l) 27 Anion Gap (0 - 20) 10 BUN (7 - 18 mg/dL) 29 H Creatinine (0.6 - 1.3 mg/dL) 3.9 H Glomerular Filtr Rate (70 - 80) 15.8 L Glucose (70 - 110 mg/dL) 143 H POC Glucose (70 - 110 MG/DL) 235 H 162 H 172 H 121 H Calcium (8.0 - 10.5 mg/dL) 8.4 Ionized Calcium Ly (1.09 - 1.30 MMOL/L) 1.08 L Phosphorus (2.5 - 4.9 MG/DL) 4.6 Magnesium (1.80 - 2.40 mg/dL) 1.99 12/06 12/06 12/05 0100 0028 2351 Chemistry Sodium (134 - 147 mEq/L) 133 L Potassium (3.4 - 5.0 mEq/L) 4.4 Chloride (100 - 108 mEq/L) 99 L Carbon Dioxide (21 - 33 mEq/l) 26 Anion Gap (0 - 20) 12 BUN (7 - 18 mg/dL) 22 H Creatinine (0.6 - 1.3 mg/dL) 3.6 H Glomerular Filtr Rate (70 - 80) 17.4 L Glucose (70 - 110 mg/dL) 127 H POC Glucose (70 - 110 MG/DL) 123 H Calcium (8.0 - 10.5 mg/dL) 8.6 Ionized Calcium Ly (1.09 - 1.30 MMOL/L) 1.10 Phosphorus (2.5 - 4.9 MG/DL) 4.2 Magnesium (1.80 - 2.40 mg/dL) 2.02 Laboratory Tests 12/06 0622 Hematology WBC (4.5 - 11.0 x10 3/uL) 13.6 H RBC (4.00 - 5.60 x10 6/uL) 4.07 Hgb (12.5 - 16.9 g/dL) 12.6 Hct (37.5 - 50.7 %) 37.6 MCV (81.0 - 99.0 fL) 92.4 MCH (27.0 - 33.0 pg) 31.0 MCHC (33.0 - 37.0 g/dL) 33.5 RDW (11.5 - 14.5 %) 14.5 Plt Count (150 - 400 x10 3/uL) 174 MPV (7.0 - 9.0 fL) 11.3 H Neut % (Auto) (56.0 - 77.0 %) 71.8 Lymph % (Auto) (14.0 - 32.0 %) 11.6 L Carlisle % (Auto) (4.8 - 9.0 %) 13.7 H Eos % (Auto) (0.3 - 3.7 %) 1.8 Baso % (Auto) (0.0 - 2.0 %) 0.5 Neut # (Auto) (2.0 - 7.6 x10 3/uL) 9.79 H Lymph # (Auto) (1.0 - 3.8 x10 3/uL) 1.58 Carlisle # (Auto) (0.1 - 0.8 x10 3/uL) 1.87 H Eos # (Auto) (0.0 - 0.2 x10 3/uL) 0.24 H Baso # (Auto) (0.0 - 0.2 x10 3/uL) 0.07 Abs Immat Gran (auto) (0.00 - 0.03 x10 3/uL) 0. 08 H Add Manual Diff NO Immature Gran % (0.0 - 2.0 %) 0.6 Nucleated RBC % (0 - 0 %) 0.0 Nucleated RBCs # (Man) (0.0 - 0.1 x10 3/uL) 0.0 0 Diagnosis, Assessment Plan Problem List/A P: 1. Bradycardia - Initially thought to be secondary to hyperkal emia but this has been effectively treated and currently patient contin ues to be bradycardic with an idioventricular rhythm. -At home patient was taking beta-blockers and digoxin but this was discontinued when he was admitted to the hospital 3 days ago. -EP consult for possible pacemaker placement -Currently on dopamine to help increase his hea rt rate 2. Acute renal failure (ARF) Believed to be secondary to Bactrim invasion de bility depletion. Patient at home was taking Lasix and also oral potassium. -Nephrology consult for continuation of hemodia lysis. -Patient have a temporary dialysis catheter on the right IJ. 3. Leukocytosis Patient denies any fever or chills. No physical signs of infection. -UA done as a look [place] yesterday is cons istent with UTI. Chest x-ray was negative. -Chest x-ray and UA will be repeated here. We w ill send urine culture as needed. -Patient started on Rocephin 1 g IV gill ry 24 hours pending results of the UA. -Continue to monitor WBCs 4. JAMEY (obstructive sleep apnea) Continue with home CPAP 5. DM type 2 (diabetes mellitus, type 2) Resume insulin sliding scale and Lantus insulin . We will hold metformin. 6. Dyslipidemia Resume home medication. 7. Afib Currently has a idioventricular rhythm. -EP was consulted -Patient was on Pradaxa at home which has been held since prior to his surgery Consultants: cardiology, critical/malariologist, e lectrophysiology, nephrology Free Text DxA P Notes Free text DxA P notes: Bradycardia Cardiology and Ep seen ppm on wednesday [facility] renal on HD UTI urine culture pending on IV Rocehin HTN monitor for now check labs in am Quality: Gen Med Crit Care VTE Prophylaxis VTE prophylaxis initiated: yes Current Medications Current medication review: I attest that the foregoing medication list in t he medical record is true, accurate, and complete to the best of my knowled ge. Advanced Care Plan 65 or Older Discussed with: patient Discussion included: living will (yes), power of ip technology transactions attorney (yes), code status ( full code) Electronically Signed by Nisha Meeks MD on 0 12/06/22 at 2258 RPT #:[id number] END OF REPORT 2022-12-06 [facility] 22:06:00-00:00 [facility] ([facility] Nephrology Progress Note REPORT#:[id number] REPORT STATUS: Signed DATE:12/06/22 TIME: 2205 PATIENT: JEAN CLAUDE WALLACE UNIT #: [id number] ROOM/BED: [place] [address] : 52 AGE: 72 SEX: M ATTEND: Doc Meeks MD ADM AUTHOR: Jonah Velazco MD * ALL edits or amendments must be made on the [employer]/computer document * Subjective Chief complaint: Patient seen and examind. He Objective General VS/I O: Vital Signs: Date Time Temp Pulse Resp B/P B/P Pulse O2 O2 F low FiO2 Mean Ox Delivery Rate 12/06 1800 81 24 175/74 106 96 12/06 1745 66 34 168/76 109 95 12/06 1730 76 28 161/72 104 95 12/06 1715 69 22 167/77 110 96 12/06 1706 54 20 156/72 104 94 12/06 1701 59 27 170/78 112 96 12/06 1645 53 25 149/67 97 96 07/30 1630 80 31 167/75 108 97 07/30 1615 79 17 166/75 108 94 07/30 1600 36.3 07/30 1600 78 18 170/75 108 96 07/30 1545 72 26 177/74 107 96 07/30 1530 79 22 169/74 107 97 07/30 1515 80 26 169/75 108 97 07/30 1500 73 27 163/74 106 97 07/30 1445 80 30 165/80 114 97 07/30 1430 80 21 160/75 108 96 07/30 1415 80 25 159/76 109 97 07/30 1400 80 18 158/76 109 97 07/30 1345 80 21 160/75 108 98 07/30 1330 80 15 173/79 114 97 07/30 1321 80 27 166/74 107 97 07/30 1315 80 19 177/82 118 98 07/30 1300 80 22 166/71 110 98 07/30 1245 80 19 168/78 112 97 07/30 1230 80 17 167/75 108 97 07/30 1215 80 18 163/79 113 96 07/30 1200 36.3 07/30 1200 80 31 165/75 108 97 07/30 1145 83 24 163/74 106 95 07/30 1133 80 26 168/79 113 95 07/30 1130 80 17 170/77 111 96 07/30 1125 80 18 165/80 115 95 07/30 1115 80 20 174/81 116 95 07/30 1110 80 39 160/77 110 96 07/30 1105 65 26 168/80 115 95 07/30 1100 54 18 168/79 113 96 07/30 1055 64 22 159/76 109 96 07/30 1052 77 31 175/79 114 96 07/30 1050 70 17 174/83 119 96 07/30 1045 76 15 174/81 117 96 07/30 1030 82 19 161/76 109 96 07/30 1028 80 11 162/77 111 97 07/30 1026 81 18 174/78 112 95 07/30 1015 80 16 173/80 115 96 07/30 1000 65 22 152/77 108 96 07/30 0945 79 34 158/71 102 96 07/30 0930 81 26 170/80 115 96 07/30 0915 78 19 162/76 109 97 07/30 0900 79 22 163/76 109 96 07/30 0849 83 35 161/78 112 96 07/30 0847 81 33 173/78 112 96 07/30 0845 91 33 173/82 118 95 07/30 0830 79 21 156/79 111 95 07/30 0815 77 12 137/66 95 93 07/30 0800 36.0 07/30 0800 75 10 145/67 96 93 07/30 0745 77 18 158/70 101 93 07/30 0730 75 14 153/70 101 92 07/30 0715 76 16 158/74 107 95 07/30 0712 75 23 147/73 103 94 07/30 0545 56 15 134/59 85 95 07/30 0530 101 32 139/68 98 95 07/30 0515 70 13 140/65 93 93 07/30 0500 73 9 132/63 91 93 07/30 0445 72 5 130/62 89 93 07/30 0430 70 13 138/65 94 94 07/30 0415 72 10 119/58 84 94 07/30 0400 36.8 07/30 0400 73 9 119/59 84 93 07/30 0345 73 10 124/60 87 93 07/30 0330 70 15 155/70 101 93 07/30 0315 71 12 165/77 110 93 07/30 0300 84 9 124/58 83 92 07/30 0245 88 11 132/60 87 92 07/30 0230 89 12 137/63 91 91 07/30 0215 94 12 152/71 102 92 07/30 0200 85 16 151/72 104 91 07/30 0155 97 10 149/69 99 91 07/30 0150 84 14 146/71 102 92 07/30 0145 113 4 161/71 106 91 07/30 0140 114 9 159/75 108 93 07/30 0135 114 18 159/86 114 96 07/30 0130 118 15 160/74 106 95 07/30 0125 119 11 164/74 106 96 07/30 0120 119 15 171/74 107 96 07/30 0115 113 13 169/83 118 97 07/30 0100 41 19 161/81 114 97 07/30 0045 107 11 162/87 117 97 07/30 0040 43 17 149/74 105 98 07/30 0030 107 13 166/86 119 97 07/30 0024 107 14 164/87 117 97 07/30 0015 107 17 163/92 118 98 12/06 0000 36.7 12/06 0000 39 29 158/76 109 97 12/05 2346 92 23 139/68 96 95 12/05 2330 106 19 157/81 110 96 12/05 2315 106 17 160/81 113 95 12/05 2300 109 18 150/79 108 94 12/05 2245 108 19 150/75 106 93 12/05 2241 108 27 153/72 104 96 12/05 2230 53 18 145/62 95 93 12/05 2216 34 22 142/67 96 95 24 hour I O ending at 0700: 12/06 0700 12/05 1900 Intake Total 694.00 Output Total 1999 250 Balance -1999 444.00 Intake, IV 94.00 Intake, Oral 600 Number Voids 2 Output, 1999 Hemodialysis Output, Urine 250 PATIENT WEIGHT: Weight (lb): 235 Weight (oz): 14.31 Weight (kg): 107.000 Medications Active Meds + DC'd Last 24 Hrs Isoproterenol HCl (isoproterenol HCL) 1 MG TITRA TE IV (CKD) Sodium Chloride (SODIUM CHLORIDE 0.9%) 500 ML Allopurinol (ZYLOPRIM) 200 MG BEDTIME PO Atorvastatin Calcium (LIPITOR) 40 MG 2100 PO Albumin Human (ALBUMINAR-25%) 12.5 GM ASDIR PRN IV Heparin Sodium (Porcine) (HEPARIN SODIUM) 3,000 UNIT ASDIR PRN DIALYSIS Lidocaine HCl (LIDOCAINE HCL/PF) 0.5 ML ASDIR MT N I-DERMAL (CKD) Mannitol (Mannitol 20%) 12.5 GM ASDIR PRN IV Sodium Chloride (SODIUM CHLORIDE 0.9%) 2,000 ML ASDIR PRN IV Sodium Chloride (SODIUM CHLORIDE) 5 ML ASDIR PRN IV Sodium Chloride (SODIUM CHLORIDE) 10 ML ASDIR MT N IV Sodium Chloride (SODIUM CHLORIDE 0.9%) 250 ML DIR PRN IV Fludrocortisone Acetate (FLORINEF ACETATE) 0.1 M G DAILY PO Insulin Glargine (Semglee) 10 UNIT BID SUBQ Insulin Human Lispro (HUMALOG) 0 AC HS SUBQ Ceftriaxone Sodium (ROCEPHIN 1000MG VIAL) 1,000 MG Q24H IV Sodium Chloride (SODIUM CHLORIDE) 10 ML Acetaminophen (TYLENOL) 650 MG Q4H PRN PRN PO Dextrose/Water (DEXTROSE 10% IN WATER) 125 ML DIR PRN IV (CKD) Dextrose/Water (DEXTROSE 10% IN WATER) 250 ML DIR PRN IV (CKD) Docusate Sodium (COLACE) 100 MG BID PRN PRN PO Glucagon (GLUCAGON) 1 MG ASDIR PRN IM Loperamide HCl (IMODIUM CAPSULE) 2 MG Q4H PRN MT N PO Ondansetron HCl (ZOFRAN) 4 MG Q4H PRN PRN IV Dopamine HCl/Dextrose (DOPamine 400MG/D5W 250ML) 250 ML ASDIR IV Dietitian nutrition assessment The data set between the solid lines has been im ported from the dietitian's assessment. BMI Calculated: 33.8 Nutrition related diagnosis: Nutrition diagnosis details: Nutrition problem: Nutrition etiology: Nutrition signs and symptoms: Nutrition prescription: Dietitian name: Assessment completed: Physical Exam General appearance: alert, awake Head/eyes: atraumatic, EOMI, normocephalic ENT: dry mucous membranes, moist mucous membrane s, normal nose Neck: non-tender, supple/no meningismus, no brui t/NL carotids, no JVD, no lymphadenopathy Cardiovascular: normal heart sounds, regular rat e and rhythm, pedal pulses present, no murmur Respiratory: aerating well, clear to auscultatio n Abdomen: non-tender, soft, no distention Extremities: non-tender, normal inspection, no e linette Results Findings/Data: Laboratory Tests 12/06 12/06 12/06 12/06 12/06 2038 1622 1126 0741 0622 Chemistry Sodium (134 - 147 mEq/L) 133 L Potassium (3.4 - 5.0 mEq/L) 4.4 Chloride (100 - 108 mEq/L) 100 Carbon Dioxide (21 - 33 mEq/l) 27 Anion Gap (0 - 20) 10 BUN (7 - 18 mg/dL) 29 H Creatinine (0.6 - 1.3 mg/dL) 3.9 H Glomerular Filtr Rate (70 - 80) 15.8 L Glucose (70 - 110 mg/dL) 143 H POC Glucose (70 - 110 MG/DL) 235 H 162 H 172 H 121 H Calcium (8.0 - 10.5 mg/dL) 8.4 Ionized Calcium Ly (1.09 - 1.30 MMOL/L) 1.08 L Phosphorus (2.5 - 4.9 MG/DL) 4.6 Magnesium (1.80 - 2.40 mg/dL) 1.99 12/06 12/06 12/05 0100 0028 2351 Chemistry Sodium (134 - 147 mEq/L) 133 L Potassium (3.4 - 5.0 mEq/L) 4.4 Chloride (100 - 108 mEq/L) 99 L Carbon Dioxide (21 - 33 mEq/l) 26 Anion Gap (0 - 20) 12 BUN (7 - 18 mg/dL) 22 H Creatinine (0.6 - 1.3 mg/dL) 3.6 H Glomerular Filtr Rate (70 - 80) 17.4 L Glucose (70 - 110 mg/dL) 127 H POC Glucose (70 - 110 MG/DL) 123 H Calcium (8.0 - 10.5 mg/dL) 8.6 Ionized Calcium Ly (1.09 - 1.30 MMOL/L) 1.10 Phosphorus (2.5 - 4.9 MG/DL) 4.2 Magnesium (1.80 - 2.40 mg/dL) 2.02 Laboratory Tests 12/06 0622 Hematology WBC (4.5 - 11.0 x10 3/uL) 13.6 H RBC (4.00 - 5.60 x10 6/uL) 4.07 Hgb (12.5 - 16.9 g/dL) 12.6 Hct (37.5 - 50.7 %) 37.6 MCV (81.0 - 99.0 fL) 92.4 MCH (27.0 - 33.0 pg) 31.0 MCHC (33.0 - 37.0 g/dL) 33.5 RDW (11.5 - 14.5 %) 14.5 Plt Count (150 - 400 x10 3/uL) 174 MPV (7.0 - 9.0 fL) 11.3 H Neut % (Auto) (56.0 - 77.0 %) 71.8 Lymph % (Auto) (14.0 - 32.0 %) 11.6 L Carlisle % (Auto) (4.8 - 9.0 %) 13.7 H Eos % (Auto) (0.3 - 3.7 %) 1.8 Baso % (Auto) (0.0 - 2.0 %) 0.5 Neut # (Auto) (2.0 - 7.6 x10 3/uL) 9.79 H Lymph # (Auto) (1.0 - 3.8 x10 3/uL) 1.58 Carlisle # (Auto) (0.1 - 0.8 x10 3/uL) 1.87 H Eos # (Auto) (0.0 - 0.2 x10 3/uL) 0.24 H Baso # (Auto) (0.0 - 0.2 x10 3/uL) 0.07 Abs Immat Gran (auto) (0.00 - 0.03 x10 3/uL) 0. 08 H Add Manual Diff NO Immature Gran % (0.0 - 2.0 %) 0.6 Nucleated RBC % (0 - 0 %) 0.0 Nucleated RBCs # (Man) (0.0 - 0.1 x10 3/uL) 0. 00 Results: labs reviewed Diagnosis, Assessment Plan Free Text A P: 1. Acute renal failure on chronic kidney disease , likely due to acute interstitial nephritis from exposure to Bactrim for 1 week. The patient is now off of Bactrim and status post acute hemodialysi s x2 doses. Improved Creatinine5.2 o 3.6 mg/dL is expected with IVF. 2. Hyperkalemia. Elevated potassium of 5.4 mEq p er liter in the setting of sedto-fu-dyprwuy renal failure. We will plan for hemodialysis today. 3. Metabolic acidosis, will correct on hemodialy sis. 4. Bradycardia. The patient is being considered for pacemaker placement. 5. Type 2 diabetes mellitus. 6. Obstructive sleep apnea. 7. Atrial fibrillation. 8. Hyponatremia. We will place the patient on 1. 5 liter free water restriction. 9. Diarrhea. This developed soon after taking Ba ctrim. 10. We will check Clostridium difficile toxin. Consultants: cardiology, critical/malariologist, e lectrophysiology, nephrology Electronically Signed by Jonah Velazco MD on 3 at 1928 RPT #:[id number] END OF REPORT 2022-12-06 [facility] 11:35:00-00:00 [facility] Critical Care Progress Note REPORT#:[id number] REPORT STATUS: Signed DATE:12/06/22 TIME: 1135 PATIENT: JEAN CLAUDE WALLACE UNIT #: [id number] ROOM/BED: [place] [id number] : 52 AGE: 72 SEX: M ATTEND: Cisco Kulkarni MD ADM AUTHOR: Clara Mary CNP * ALL edits or amendments must be made on the el [employer]/computer document * Subjective Chief complaint: Severe bradycardia HPI: This is a 72 years old male with medical history significant for hypertension, hyperlipidemia, diabetes mellitus, atrial fibril lation, and JAMEY, who was admitted to [facility] 3 day s ago as he was found with severe hyperkalemia and acute renal failure that was done on an outpatient basis. Patient underwent umbilical herni a repair 9 days ago and was discharged home on Bactrim prophylactically and he was foun d to have significant hyperkalemia before discharg e. The patient was transferred to us for EP consult for possible pacemaker placement. The patient ochoa d hemodialysis earlier in the morning. The patient is asymptomatic from his br adycardia. He was admitted to CCU for further observation and management. Objective General VS/I O Last Documented: Result Date Time Pulse Ox 96 12/06 929 B/P 170/80 12/06 929 B/P Mean 115 12/06 929 Pulse 81 12/06 929 Resp 26 12/06 929 Temp 96.8 12/06 0800 O2 Delivery Room air 12/05 2030 24 hour I O ending at 0700: 12/06 0700 12/05 1900 Intake Total 694.00 Output Total 1999 250 Balance -1999 444.00 Intake, IV 94.00 Intake, Oral 600 Number Voids 2 Output, 2000 Hemodialysis Output, Urine 250 PATIENT WEIGHT: Weight (lb): 235 Weight (oz): 14.31 Weight (kg): 107.000 Medications: Active Meds + DC'd Last 24 Hrs Isoproterenol HCl (isoproterenol HCL) 1 MG TITRA TE IV (CKD) Sodium Chloride (SODIUM CHLORIDE 0.9%) 500 ML Allopurinol (ZYLOPRIM) 200 MG BEDTIME PO Atorvastatin Calcium (LIPITOR) 40 MG 2100 PO Albumin Human (ALBUMINAR-25%) 12.5 GM ASDIR PRN IV Heparin Sodium (Porcine) (HEPARIN SODIUM) 3,000 UNIT ASDIR PRN DIALYSIS Lidocaine HCl (LIDOCAINE HCL/PF) 0.5 ML ASDIR MT N I-DERMAL (CKD) Mannitol (Mannitol 20%) 12.5 GM ASDIR PRN IV Sodium Chloride (SODIUM CHLORIDE 0.9%) 2,000 ML ASDIR PRN IV Sodium Chloride (SODIUM CHLORIDE) 5 ML ASDIR MT N IV Sodium Chloride (SODIUM CHLORIDE) 10 ML ASDIR MT N IV Sodium Chloride (SODIUM CHLORIDE 0.9%) 250 ML DIR PRN IV Fludrocortisone Acetate (FLORINEF ACETATE) 0.1 M G DAILY PO Insulin Glargine (Semglee) 10 UNIT BID SUBQ Insulin Human Lispro (HUMALOG) 0 AC HS SUBQ Ceftriaxone Sodium (ROCEPHIN 1000MG VIAL) 1,000 MG Q24H IV Sodium Chloride (SODIUM CHLORIDE) 10 ML Acetaminophen (TYLENOL) 650 MG Q4H PRN PRN PO Dextrose/Water (DEXTROSE 10% IN WATER) 125 ML DIR PRN IV (CKD) Dextrose/Water (DEXTROSE 10% IN WATER) 250 ML DIR PRN IV (CKD) Docusate Sodium (COLACE) 100 MG BID PRN PRN PO Glucagon (GLUCAGON) 1 MG ASDIR PRN IM Loperamide HCl (IMODIUM CAPSULE) 2 MG Q4H PRN MT N PO Ondansetron HCl (ZOFRAN) 4 MG Q4H PRN PRN IV Dopamine HCl/Dextrose (DOPamine 400MG/D5W 250ML) 250 ML ASDIR IV Results Findings/data: Laboratory Tests 12/06 12/06 12/06 12/06 12/05 0741 0622 0100 0028 2351 Chemistry Sodium (134 - 147 mEq/L) 133 L 133 L Potassium (3.4 - 5.0 mEq/L) 4.4 4.4 Chloride (100 - 108 mEq/L) 100 99 L Carbon Dioxide (21 - 33 mEq/l) 27 26 Anion Gap (0 - 20) 10 12 BUN (7 - 18 mg/dL) 29 H 22 H Creatinine (0.6 - 1.3 mg/dL) 3.9 H 3.6 H Glomerular Filtr Rate (70 - 80) 15.8 L 17.4 L Glucose (70 - 110 mg/dL) 143 H 127 H POC Glucose (70 - 110 MG/DL) 121 H 123 H Calcium (8.0 - 10.5 mg/dL) 8.4 8.6 Ionized Calcium Ly (1.09 - 1.30 MMOL/L) 1.08 L 1.10 Phosphorus (2.5 - 4.9 MG/DL) 4.6 4.2 Magnesium (1.80 - 2.40 mg/dL) 1.99 2.02 12/05 1612 Chemistry POC Glucose (70 - 110 MG/DL) 153 H Laboratory Tests 12/06 0622 Hematology WBC (4.5 - 11.0 x10 3/uL) 13.6 H RBC (4.00 - 5.60 x10 6/uL) 4.07 Hgb (12.5 - 16.9 g/dL) 12.6 Hct (37.5 - 50.7 %) 37.6 MCV (81.0 - 99.0 fL) 92.4 MCH (27.0 - 33.0 pg) 31.0 MCHC (33.0 - 37.0 g/dL) 33.5 RDW (11.5 - 14.5 %) 14.5 Plt Count (150 - 400 x10 3/uL) 174 MPV (7.0 - 9.0 fL) 11.3 H Neut % (Auto) (56.0 - 77.0 %) 71.8 Lymph % (Auto) (14.0 - 32.0 %) 11.6 L Carlisle % (Auto) (4.8 - 9.0 %) 13.7 H Eos % (Auto) (0.3 - 3.7 %) 1.8 Baso % (Auto) (0.0 - 2.0 %) 0.5 Neut # (Auto) (2.0 - 7.6 x10 3/uL) 9.79 H Lymph # (Auto) (1.0 - 3.8 x10 3/uL) 1.58 Carlisle # (Auto) (0.1 - 0.8 x10 3/uL) 1.87 H Eos # (Auto) (0.0 - 0.2 x10 3/uL) 0.24 H Baso # (Auto) (0.0 - 0.2 x10 3/uL) 0.07 Abs Immat Gran (auto) (0.00 - 0.03 x10 3/uL) 0. 08 H Add Manual Diff NO Immature Gran % (0.0 - 2.0 %) 0.6 Nucleated RBC % (0 - 0 %) 0.0 Nucleated RBCs # (Man) (0.0 - 0.1 x10 3/uL) 0.0 0 Laboratory Tests 12/05 1706 Serology Hepatitis A IgM Ab (NON REACT. INDEX) NON REACT KEVIN Hep Bs Antigen (NonReactive INDEX) NON REACTIVE Hep B Core IgM Ab (NON REACT. INDEX) NON REACTI VE Hepatitis C Antibody (NON REACT. INDEX) NON ANISHA CTIVE Laboratory Tests 12/06/22 0622: [Embedded Image Not Available] 12/06/22 0028: [Embedded Image Not Available] Microbiology: 12/05 0449 URINE: Urine Culture - RES 12/05 0030 NASAL: MRSA DNA Surveillance Screen - COMP Radiology data Recent Impressions: ULTRASOUND - DUP VEIN UNI/LTD 12/05 1148 Report Impression - Status: SIGNED Entered: 12/05/2022 1237 IMPRESSION: 1. Limited right groin assessment by overlying b andages. Unable to assess for pseudoaneurysm or fistula at this moment. 2. Negative for soft tissue hematoma. 3. Patent right lower extremity venous system wi th normal compressibility. Impression By: [email or web address] - Clinton escobedo M.D. Free Text Obj Notes Free Text Obj Notes: General appearance: alert, awake, oriented, ambu lating Head/Eyes: atraumatic, EOMI, normal conjunctiva/sclera, normal eyelids/periorb., normocephalic ENT: moist mucosal membranes Neck: full range of motion, no bruit/NL carotids , no JVD Cardiovascular: bradycardic, normal heart sounds Respiratory: aerating well, clear to auscultatio n, symmetric expansion, no distress Abdomen: non-tender, normal bowel sounds, soft, no distention, no guarding Extremities: moves all, no c yanosis, no edema, right groin swollen and tender to touch 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 DM type 2 (diabetes mellitus, type 2) 2. Dyslipidemia 3. JAMEY (obstructive sleep apnea) 4. Afib 5. Bradycardia 6. Acute renal failure (ARF) 7. Leukocytosis This is a 72 years old male with medical history significant for hypertension, hyperlipidemia, diabetes mellitus, atrial fibril lation, and JAMEY, who was admitted to [facility] 3 day s ago as he was found with severe hyperkalemia and acute renal failure that was done on an outpatient basis. Patient underwent umbilical herni a repair 9 days ago and was discharged home on Bactrim prophylactically and he was foun d to have significant hyperkalemia before discharg e. The patient was transferred to us for EP consult for possible pacemaker placement. The patient ochoa d hemodialysis earlier in the morning. The patient is asymptomatic from his br adycardia. He was admitted to CCU for further observation and management. 12/06/2022 Neuro: AO x3, no distress Cardio: Junctional rhythm/bradycardia sick sinus syndrom e - PPM placement on Wednesday On Isoproterenol drip at 1 mcg/min, titrate to k eep HR >60 DC Dopamine drip Hypertension History of longstanding persistent atrial fibril lation On statin EP following Resp: On RA, saturating well Hx obstrutive sleep apnea Continue with home CPAP GI/Endo: JANES Type 2 diabetes mellitus Glycemic control ISS, glucochecks ACHS On Semglee 10 units BID Bowel care Continue Allopurinol : Acute renal failure on chronic kidney disease, l ikely due to acute interstitial nephritis from exposure to Bactrim for 1 week - HD per Nephro Patient came with RIJ hemodialysis catheter plac ed at [facility] 1.5 liter free water restriction On corticosteroids Avoid sulfa drugs, NSAIDs and IV contrast exposu re Monitor renal function, I O, weigh daily Monitor electrolytes and replete as needed Nephro following Heme/ID: Afebrile Mild leukocytosis MRSA negative On Rocephin 1 g IV every 24 hours pending result s of the UA Monitor CBC and transfuse as needed Musc: Check right groin puncture site - failed attempt for trialysis placement at [facility] Skin [facility] Pressure injury prevention Activity as tolerated DVT prophylaxis: SCD Dispo: CCU. Patient is full code. I spent 35 minutes of critic al care reviewing labs, imaging and discussing plan of care with ICC team, patient, family and nurse . Consultants: cardiology, critical/malariologist, e lectrophysiology, nephrology Code status: full code Plan discussed with: patient, family, nurse, int erdisc care team Critical care time: Minutes: 35 Quality: Gen Med Crit Care VTE Prophylaxis VTE prophylaxis initiated: yes Current Medications Current medication review: I attest that the foregoing medication list in t he medical record is true, accurate, and complete to the best of my knowled ge. Advanced Care Plan 65 or Older Discussed with: patient Discussion included: living will (yes), power of ip technology transactions attorney (yes), code status ( full code) at 1516 RPT #:[id number] END OF REPORT 2022-12-05 [facility] 22:13:00-00:00 [facility] ([facility] Clinical Note REPORT#:[id number] REPORT STATUS: Signed DATE:12/05/22 TIME: 2212 PATIENT: JEAN CLAUDE WALLACE UNIT #: [id number] ROOM/BED: [place] [address] : 52 AGE: 72 SEX: M ATTEND: Cisco Kulkarni MD ADM AUTHOR: Nisha Meeks MD * ALL edits or amendments must be made on the el ectronic/computer document * Clinical Note Note: seen by Dr. Kulkarni early in the am. agree with his plan of care. Off the dopamine drip. pacemaker on wednesday. Electronically Signed by Nisha Meeks MD on 0 12/05/22 at 2214 RPT #:[id number] END OF REPORT 2022-12-05 [id number] [facility] 16:25:00-00:[address] [place], [place] [address] PATIENT NAME: JEAN CLAUDE WALLACE ADMIT DATE: ACCOUNT NO: [id number] ROOM NO: [facility] AGE: 72 REPORT TYPE: CONSULTATION REPORT SEX: M ADMITTING PHYSICIAN:Kishan Kulkarni MD ATTENDING PHYSICIAN:Nisha Meeks MD CONSULTATION DATE: 12/05/2022 ATTENDING PHYSICIAN: Kishan Kulkarni MD CONSULTING PHYSICIAN: Jonah Velazco MD REASON FOR CONSULTATION: Acute on chroni c renal failure due to Bactrim-induced allergic interstitial nephritis, with as sociated hyperkalemia and bradycardia. HISTORY OF PRESENT ILLNESS: Mr. Wallace is a 72-ye ar-old pleasant gentleman with a past medica l history significant for type 2 diabetes mellitus, dyslipidemia, atrial fibrill ation, obstructive sleep apnea, who had been treated with Bactrim DS b.i.d. for approximately 1 week status post umbilical hernia repair. The patient had labs drawn by his PCP, [facility] revealed elevated potassium of 8.0 and he was instructed to go to the ER where he was found to have severe bradycardia with heart rate in the 20 to 30s days, felt to be due to hyperkalemia and acute renal failure and require d acute hemodialysis x2. The patient also had poor p.o. intake along with diarrhea 2 to 3 times per day for the past several days. The p atient is now transferred to [facility] CCU and is being considered for pace maker placement as his heart rate remains low in the 30s. I am asked to evaluate the patient for char l abnormalities and provide maintenance acute hemodialysis while inpatient. The patient does not recall what his baseline kidney function is though he w as told he had chronic kidney disease. He is noted to have hyperkalemia with p otassium of 5.4 mEq per liter still with hyponatremia with serum sodium of 126 mEq per liter and metabolic acidosis with bicarbonate of 20. His creatinine is currently 5.4 mg/dL. There is leukocytosis of 17,400 white blood cells. PAST MEDICAL HISTORY: As above including history of umbilical hernia repair, appendectomy, shoulder surgery. ALLERGIES: BACTRIM CAUSING ACUTE KIDNEY FAILURE. SOCIAL HISTORY: Significant for drinking 1 to 7 drinks per week. The patient is . There is a history of smoking. He li ves in [place], [place]. REVIEW OF SYSTEMS: A 14-poin t review of systems obtained and is negative except as above. PHYSICAL EXAMINATION: VITAL SIGNS: Temperature 36. 3 degrees Celsius, pulse 34, respirations 22, blood pressure 147/68. GENERAL: Well-developed, well-nourished, elderly gentleman, awake, alert and PATIENT NAME: JEAN CLAUDE WALLACE ACCOUNT #: [id number] oriented x3, pleasant, in no acute respiratory d istress. HEENT: Sclerae are anicteric. Extraocular moveme nts intact. Oropharynx clear with moist mucous membranes. NECK: Supple, no lymphadenopathy, no jugular jensen ous distention. No carotid bruits bilaterally. CHEST: Clear to auscultation bilaterally without wheezes, rales or rhonchi. CARDIOVASCULAR: Bradycardic. Regular rhythm. ABDOMEN: Soft, nontender, nondistended, positive bowel sounds. EXTREMITIES: No cyanosis, clubbing or edema. LABORATORY DATA: Chemistry shows sodium 126, pot assium 5.4, chloride 96, bicarbonate 20, glucose 186, BUN 26, creatinine 5.4, total protein 7.2, albumin 4.2, calcium 8.5, phosphorus 6.4, total bilirubi n 0.5, magnesium 2.24. CBC shows 17,400 WBC, hemoglobin 13.3 g/dL, and 215, 000 platelets, with 76% neutrophils. Urinalysis reveals 3+ gluco se, 5+ blood, 3+ protein, 3+ leukocyte esterase, 10 to 20 wbc's, greater than 5 0 rbc's and 2+ bacteria. Urine culture is pending. IMPRESSION: 1. Acute renal failure on chronic kidney disease , likely due to acute interstitial nephritis from exposure to Bactrim for 1 week. The patient is now off of Bactrim and status post acute hemodialysi s x2 doses. His potassium is still rising to 5.4 mEq per liter with n o renal recovery yet. We will plan for acute hemodialysis again today. 2. Hyperkalemia. Elevated potassium of 5.4 mEq p er liter in the setting of veleu-br-ecwigne renal failure. We will plan for hemodialysis today. 3. Metabolic acidosis, will correct on hemodialy sis. 4. Bradycardia. The patient is being considered for pacemaker placement. 5. Type 2 diabetes mellitus. 6. Obstructive sleep apnea. 7. Atrial fibrillation. 8. Hyponatremia. We will place the patient on 1. 5 liter free water restriction. 9. Diarrhea. This developed soon after taking Ba ctrim. 10. We will check Clostridium difficile toxin. RECOMMENDATIONS: 1. Continue acute hemodialysis as needed. 2. Low potassium diet. 3. A 1.5 liter free water restriction. 4. Avoid sulfa drugs, NSAIDs and IV contrast exp osure. We will follow with you. Thank you for allowing me to participate with you in the care of this pleasant gentleman. Dictated By: Jonah Velazco MD Date Dictated: 12/05/2022 16:25:34 Date Transcribed: 12/05/2022 22:06:34 /[facility] PATIENT NAME: JEAN CLAUDE WALLACE ACCOUNT #: [id number] Receipt ID: [id number] Authenticated by Jonah Velazco MD On 12/11/2022 0 5:17:32 PM Electronically Signed by Jonah Velazco MD on at 0517 PATIENT NAME: JEAN CLAUDE WALLACE ACCOUNT #: [id number] 2022-12-05 [id number] [facility] 16:21:00-00:[address] [place] [address] PATIENT NAME: JEAN CLAUDE WALLACE ADMIT DATE: ACCOUNT NO: [id number] ROOM NO: [facility] AGE: 72 REPORT TYPE: CONSULTATION REPORT SEX: M ADMITTING PHYSICIAN:Kishan Kulkarni MD ATTENDING PHYSICIAN:Kishan Kulkarni MD CONSULTATION DATE: 12/05/2022 REASON FOR CONSULTATION: Bradycardia. HISTORY OF PRESENT ILLNESS: This is a 72-year-ol d gentleman with history of hypertension, who underwent a hernia rep air surgery about a week ago; however, he started feeling poorly, dizzy, near syncope, found to have severe bradycardia, heart rate in t he 20s, and also acute kidney injury, initially had significant hyperkalemia, still the pota ssium is around 5.2-5.4 and he remains very bradycardia with heart rate in the 40s. He feels weak, we were consulted for consideration of a pacemaker. REVIEW OF SYSTEMS: CONSTITUTIONAL: Negative. CARDIOVASCULAR: Negative. RESPIRATORY: Negative. GASTROINTESTINAL: Negative. GENITOURINARY: Negative. MUSCULOSKELETAL: Negative. EYES: Negative. ENT: Negative. ALLERGY AND IMMUNOLOGY: Negative. PSYCHIATRY: Negative. PAST MEDICAL HISTORY: Hypertension. PAST SURGICAL HISTORY: Hernia repair. SOCIAL HISTORY: Denies smoking or illicit drugs. PHYSICAL EXAMINATION: VITAL SIGNS: Blood pressure 150/60, pulse 38, re spirations 20, O2 sats 98%. GENERAL: No acute distress. HEENT: Moist mucous membranes. CARDIOVASCULAR: Regular. RESPIRATORY: Clear. ABDOMEN: Soft. EXTREMITIES: 2+ distal pulses. NEUROLOGIC: No focal deficits. SKIN: No lesions. PSYCHIATRIC: Normal thought process. EKG: Ventricular junctional rhythm at 38 beats p er minute. PATIENT NAME: JEAN CLAUDE WALLACE ACCOUNT #: [id number] IMPRESSION: 1. Junctional rhythm/bradycardia sick sinus synd luis. 2. Acute kidney injury. 3. Hypertension. 4. History of longstanding persistent atrial fib rillation. RECOMMENDATIONS: Discussed with the mary ent and his family present in the room that initially was considered having reversible causes. However, he is still having these bradycardia, and significantly, he does have an indication for a pacemaker. We discussed the procedure, benefits, and risks. He voiced understanding and wishes to proceed. We will plan for a dual-chamber pacemaker placement, tentatively for Wednesday. Thank you for allowing us to participate in Mr. Wallace's healthcare. Dictated By: Miguelangel Bucio MD Date Dictated: 12/05/2022 16:21:10 Date Transcribed: 12/05/2022 20:21:49 JESSICA/JAAMR/CORINA Receipt ID: [id number] Authenticated by Miguelangel wells 12/07/2022 03:05:26 PM at 0305 PATIENT NAME: JEAN CLAUDE WALLACE ACCOUNT #: [id number] 2022-12-05 [facility] 01:33:00-00:00 [facility] ([facility] Hospitalist History Physical REPORT#:[id number] REPORT STATUS: Signed DATE:12/05/22 TIME: 0133 PATIENT: JEAN CLAUDE WALLACE UNIT #: [id number] ROOM/BED: [facility] [place]-1 : 52 AGE: 72 SEX: M ATTEND: Cisco Kulkarni MD ADM AUTHOR: Kishan Kulkarni MD * ALL edits or amendments must be made on the el [employer]/computer document * History of Present Illness HPI Chief complaint: Transferred from [facility] f or possible pacemaker insertion due to severe bradycardia/idioventricular rhythm PCP: PCP: No Primary or Family Physician HPI: 72-year-old man with past medical history of ana betes, dyslipidemia, atrial fibrillation and obstructive sleep apnea that wa s admitted to [facility] 3 days ago when his find out to have severe hyperkalemia and acute renal failure on routine blood work done with [facility] primary care this past Wednesday. Patient underwent umbilical hernia re pair 9 days ago without any complication. Patient was discharged home on Grecia trim prophylactically. Wants to sign out to have severe hyperkalemia and acut e renal failure this past Wednesday patient was admitted to the hospital. Patient was found to have severe bradycardia with hear t rate in the 20s and 30s the initial thought to be secondary to his hyperkalemia and acute renal fa ilure. Patient required hemodialysis to treat his hyperkalemia a nd after hyperkalemia was resolved his heart rate did not improve. Has been thought jeremias t the reason for the acute renal failure is due to Bactrim in addition to b owling depletion. Patient was transferred here to be evaluated for pacemaker p lacement. Patient currently does not have any complaints. Informant/historian: patient, prior records, ref erring physician History Past Medical Surgical Hx Patient History: 1. DM type 2 (diabetes mellitus, type 2) 2. Dyslipidemia 3. JAMEY (obstructive sleep apnea) 4. Afib 5. H/O umbilical hernia repair 6. Hx of appendectomy 7. H/O shoulder surgery Social History Alcohol use: Alcohol use (1-7 drinks per week) Drug use: Denies recreational drugs Smoking status for patients 13 years old or olde r: Never Smoker Medication/Allergy-Vaccine Hx Medications: Home Medications: FLUDROCORTISONE ACETATE (FLORINEF) 0.1 MG PO KEMAR LY POTASSIUM CHLORIDE ER (KLOR-CON 10) 10 MEQ PO DA AUBREE FUROSEMIDE (LASIX) 40 MG PO DAILY GlipiZIDE/METFORMIN HCL (GLIPIZIDE-METFORMIN 2.5 -500 MG) 1 TAB PO BID MEALS CARVEDILOL (COREG) 25 MG PO BID MEALS DIGOXIN (LANOXIN) 0.25 MG PO DAILY DABIGATRAN (PRADAXA) 150 MG PO DAILY LISINOPRIL (ZESTRIL) 40 MG PO DAILY ALLOPURINOL (ZYLOPRIM) 300 MG PO BEDTIME LIRAGLUTIDE (VICTOZA (6mL)) 1.25 ML SUBQ DAILY FENOFIBRATE 67 MG PO DAILY Allergies: Coded Allergies: sulfamethoxazole (From BACTRIM) (Severe, KIDNEY FAILURE 12/05/22) trimethoprim (From BACTRIM) (Severe, KIDNEY FAIL URE 12/05/22) Pt reports no significant: family history Review of Systems Constitutional: Denies: chills, fatigue, fev er, generalized weakness, lethargy, malaise, recent wt loss, other. All systems rev neg: except as noted OBJECTIVE VS/I O: Blood pressure was 160/84, p ulse of 42, temperature 98.6, respiratory rate of 12 General appearance: alert, awake, oriented Head/Eyes: atraumatic, EOMI, normal conjunctiva/sclera, normal eyelids/periorb., normocephalic ENT: moist mucosal membranes Neck: full range of motion, no bruit/NL carotids , no JVD Cardiovascular: bradycardic, normal heart sounds Respiratory: aerating well, clear to auscultatio n, symmetric expansion, no distress Abdomen: non-tender, normal bowel sounds, soft, no distention, no guarding Extremities: moves all, no cyanosis, no edema 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, oriented X 3, normal speech, n o motor deficits, no sensory deficits Skin: intact, normal color, no rash Results Findings/Data: Laboratory Tests: 12/05 29 Chemistry Sodium (134 - 147 mEq/L) 128 L Potassium (3.4 - 5.0 mEq/L) 5.1 H Chloride (100 - 108 mEq/L) 97 L Carbon Dioxide (21 - 33 mEq/l) 22 Anion Gap (0 - 20) 14 BUN (7 - 18 mg/dL) 29 H Creatinine (0.6 - 1.3 mg/dL) 5.2 H Glomerular Filtr Rate (70 - 80) 11.2 L Glucose (70 - 110 mg/dL) 174 H Calcium (8.0 - 10.5 mg/dL) 8.5 Ionized Calcium Ly (1.09 - 1.30 MMOL/L) 1.07 L Phosphorus (2.5 - 4.9 MG/DL) 6.4 H Magnesium (1.80 - 2.40 mg/dL) 2.24 Total Bilirubin (0.0 - 1.0 mg/dL) 0.50 Direct Bilirubin (0.0 - 0.30 MG/DL) 0.20 Indirect Bilirubin (MG/DL) 0.30 AST (15 - 37 IUnit/L) 19 ALT (30 - 65 IUnit/L) 12 L Total Alk Phosphatase (20 - 125 IUnit/L) 42 Total Protein (6.4 - 8.2 g/dL) 7.2 Albumin (3.4 - 5.0 g/dL) 4.20 Hematology WBC (4.5 - 11.0 x10 3/uL) 17.8 H RBC (4.00 - 5.60 x10 6/uL) 4.46 Hgb (12.5 - 16.9 g/dL) 13.9 Hct (37.5 - 50.7 %) 42.1 MCV (81.0 - 99.0 fL) 94.4 MCH (27.0 - 33.0 pg) 31.2 MCHC (33.0 - 37.0 g/dL) 33.0 RDW (11.5 - 14.5 %) 14.8 H Plt Count (150 - 400 x10 3/uL) 211 MPV (7.0 - 9.0 fL) 11.1 H Neut % (Auto) (56.0 - 77.0 %) 79.6 H Lymph % (Auto) (14.0 - 32.0 %) 7.3 L Carlisle % (Auto) (4.8 - 9.0 %) 11.5 H Eos % (Auto) (0.3 - 3.7 %) 0.6 Baso % (Auto) (0.0 - 2.0 %) 0.4 Neut # (Auto) (2.0 - 7.6 x10 3/uL) 14.13 H Lymph # (Auto) (1.0 - 3.8 x10 3/uL) 1.30 Carlisle # (Auto) (0.1 - 0.8 x10 3/uL) 2.05 H Eos # (Auto) (0.0 - 0.2 x10 3/uL) 0.10 Baso # (Auto) (0.0 - 0.2 x10 3/uL) 0.07 Abs Immat Gran (auto) (0.00 - 0.03 x10 3/uL) 0. 11 H Add Manual Diff NO Immature Gran % (0.0 - 2.0 %) 0.6 Nucleated RBC % (0 - 0 %) 0.0 Nucleated RBCs # (Man) (0.0 - 0.1 x10 3/uL) 0.0 0 Results: labs reviewed, vital signs reviewed, EK G personally reviewed, rhythm personally rev'd, current med profile rev'd Diagnosis, Assessment Plan Problem List/A P: 1. Bradycardia - Initially thought to be secondary to hyperkal emia but this has been effectively treated and currently patient contin ues to be bradycardic with an idioventricular rhythm. -At home patient was taking beta-blockers and digoxin but this was discontinued when he was admitted to the hospital 3 days ago. -EP consult for possible pacemaker placement -Currently on dopamine to help increase his hea rt rate 2. Acute renal failure (ARF) Believed to be secondary to Bactrim invasion de bility depletion. Patient at home was taking Lasix and also oral potassium. -Nephrology consult for continuation of hemodia lysis. -Patient have a temporary dialysis catheter on the right IJ. 3. Leukocytosis Patient denies any fever or chills. No physical signs of infection. -UA done as a look [place] yesterday is cons istent with UTI. Chest x-ray was negative. -Chest x-ray and UA will be repeated here. We w ill send urine culture as needed. -Patient started on Rocephin 1 g IV gill ry 24 hours pending results of the UA. -Continue to monitor WBCs 4. JAMEY (obstructive sleep apnea) Continue with home CPAP 5. DM type 2 (diabetes mellitus, type 2) Resume insulin sliding scale and Lantus insulin . We will hold metformin. 6. Dyslipidemia Resume home medication. 7. Afib Currently has a idioventricular rhythm. -EP was consulted -Patient was on Pradaxa at home which has been held since prior to his surgery Plan discussed with: patient Resuscitation discussion: Discussed with: patient Code status: full code Quality: Gen Med Crit Care VTE Prophylaxis VTE prophylaxis initiated: yes Current Medications Current medication review: I attest that the foregoing medication list in t he medical record is true, accurate, and complete to the best of my knowled ge. Advanced Care Plan 65 or Older Discussed with: patient Discussion included: living will (yes), power of ip technology transactions attorney (yes), code status ( full code) at 0242 RPT #:[id number] END OF REPORT 2022-12-05 [facility] 00:12:00-00:00 [facility] Critical Care Consult Note REPORT#:[id number] REPORT STATUS: Signed DATE:12/05/22 TIME: 0012 PATIENT: JEAN CLAUDE WALLACE UNIT #: [id number] ROOM/BED: [place] [address] : 52 AGE: 72 SEX: M ATTEND: Cisco Kulkarni MD ADM AUTHOR: Aliza Pritchard MD * ALL edits or amendments must be made on the [employer]/computer document * History of Present Illness HPI Chief complaint: Severe bradycardia HPI: This is a 72 years old male with medical history significant for hypertension, hyperlipidemia, diabetes mellitus, atrial fibril lation, and JAMEY, who was admitted to [facility] day s ago as he was found with severe hyperkalemia and acute renal failure that was done on an outpatient basis. Patient underwent umbilical herni a repair 9 days ago and was discharged home on Bactrim prophylactically and he was foun d to have significant hyperkalemia before discharg e. The patient was transferred to us for EP consult for possible pacemaker placement. The patient ochoa d hemodialysis earlier in the morning. The patient is asymptomatic from his br adycardia. He was admitted to CCU for further observation and management. History - Adult longitudinal Allergies: Coded Allergies: sulfamethoxazole (From BACTRIM) (Severe, KIDNEY FAILURE 12/05/22) trimethoprim (From BACTRIM) (Severe, KIDNEY FAIL URE 12/05/22) Review of Systems ROS Additional notes: 12 point Review of Systems was performed to the extent possible including discussion with the nursing staff and review of vital signs and all data. All systems negative other than pertinent negative/p ositive findings mentioned in the interval history section. Objective Physical Exam VS/I O: Last Documented: Result Date Time Pulse Ox 96 12/05 1301 B/P 133/63 12/05 1301 B/P Mean 90 12/05 1301 Pulse 35 12/05 1301 Resp 16 12/05 1301 Temp 36.3 12/05 1200 24 hour I O ending at 0700: 12/05 0700 12/04 1900 Intake Total 660.00 Output Total 300 Balance 360.00 Intake, IV 60.00 Intake, Oral 600 Number 1 Bowel Movements Output, Urine 300 Patient 107 kg Weight Weight Bed scale Measurement Method Patient Weight and BMI Weight (kg): 107.000 BMI: 33.8 Medications: Active Meds + DC'd Last 24 Hrs Allopurinol (ZYLOPRIM) 300 MG BEDTIME PO (DC) Allopurinol (ZYLOPRIM) 200 MG BEDTIME PO Atorvastatin Calcium (LIPITOR) 40 MG 2100 PO Fenofibrate (Fenofibrate) 48 MG DAILY PO (DC) Fludrocortisone Acetate (FLORINEF ACETATE) 0.1 M G DAILY PO Insulin Glargine (Semglee) 10 UNIT BID SUBQ Insulin Human Lispro (HUMALOG) 0 AC HS SUBQ Ceftriaxone Sodium (ROCEPHIN 1000MG VIAL) 1,000 MG Q24H IV Sodium Chloride (SODIUM CHLORIDE) 10 ML Acetaminophen (TYLENOL) 650 MG Q4H PRN PRN PO Dextrose/Water (DEXTROSE 10% IN WATER) 125 ML DIR PRN IV (CKD) Dextrose/Water (DEXTROSE 10% IN WATER) 250 ML DIR PRN IV (CKD) Docusate Sodium (COLACE) 100 MG BID PRN PRN PO Glucagon (GLUCAGON) 1 MG ASDIR PRN IM Loperamide HCl (IMODIUM CAPSULE) 2 MG Q4H PRN MT N PO Ondansetron HCl (ZOFRAN) 4 MG Q4H PRN PRN IV Dopamine HCl/Dextrose (DOPamine 400MG/D5W 250ML) 250 ML ASDIR IV Dopamine HCl/Dextrose (DOPamine 400MG/D5W 250ML) 250 ML .STK-MED ONE IV (DC) Dopamine HCl/Dextrose (DOPamine 400MG/D5W 250ML) 250 ML ASDIR IV (CAN) Results Findings/Data: Laboratory Tests 12/05/22 1100: [Embedded Image Not Available] 12/05/22 0449: [Embedded Image Not Available] 12/05/22 0030: [Embedded Image Not Available] Laboratory Tests 12/05 12/05 12/05 12/05 1059 0731 0449 0030 Chemistry Sodium (134 - 147 mEq/L) 126 L 128 L Potassium (3.4 - 5.0 mEq/L) 5.4 H 5.1 H Chloride (100 - 108 mEq/L) 96 L 97 L Carbon Dioxide (21 - 33 mEq/l) 20 L 22 Anion Gap (0 - 20) 15 14 BUN (7 - 18 mg/dL) 26 H 29 H Creatinine (0.6 - 1.3 mg/dL) 5.4 H 5.2 H Glomerular Filtr Rate (70 - 80) 10.7 L 11.2 L Glucose (70 - 110 mg/dL) 186 H 174 H POC Glucose (70 - 110 MG/DL) 172 H 185 H Calcium (8.0 - 10.5 mg/dL) 8.5 8.5 Ionized Calcium Ly (1.09 - 1.30 MMOL/L) 1.07 L Phosphorus (2.5 - 4.9 MG/DL) 6.4 H Magnesium (1.80 - 2.40 mg/dL) 2.24 Total Bilirubin (0.0 - 1.0 mg/dL) 0.50 Direct Bilirubin (0.0 - 0.30 MG/DL) 0.20 Indirect Bilirubin (MG/DL) 0.30 AST (15 - 37 IUnit/L) 19 ALT (30 - 65 IUnit/L) 12 L Total Alk Phosphatase (20 - 125 IUnit/L) 42 Total Protein (6.4 - 8.2 g/dL) 7.2 Albumin (3.4 - 5.0 g/dL) 4.20 Laboratory Tests 12/059 003 Hematology WBC (4.5 - 11.0 x10 3/uL) 17.4 H 17.3 H 17.8 H RBC (4.00 - 5.60 x10 6/uL) 4.26 4.47 4.46 Hgb (12.5 - 16.9 g/dL) 13.3 13.5 13.9 Hct (37.5 - 50.7 %) 39.5 41.8 42.1 MCV (81.0 - 99.0 fL) 92.7 93.5 94.4 MCH (27.0 - 33.0 pg) 31.2 30.2 31.2 MCHC (33.0 - 37.0 g/dL) 33.7 32.3 L 33.0 RDW (11.5 - 14.5 %) 14.8 H 15.1 H 14.8 H Plt Count (150 - 400 x10 3/uL) 215 218 211 MPV (7.0 - 9.0 fL) 11.1 H 10.8 H 11.1 H Neut % (Auto) (56.0 - 77.0 %) 76.5 79.3 H 79.6 H Lymph % (Auto) (14.0 - 32.0 %) 8.1 L 7.7 L 7.3 L Carlisle % (Auto) (4.8 - 9.0 %) 13.7 H 11.4 H 11.5 H Eos % (Auto) (0.3 - 3.7 %) 0.7 0.5 0.6 Baso % (Auto) (0.0 - 2.0 %) 0.3 0.3 0.4 Neut # (Auto) (2.0 - 7.6 x10 3/uL) 13.33 H 13.7 1 H 14.13 H Lymph # (Auto) (1.0 - 3.8 x10 3/uL) 1.41 1.34 1 .30 Carlisle # (Auto) (0.1 - 0.8 x10 3/uL) 2.39 H 1.98 H 2.05 H Eos # (Auto) (0.0 - 0.2 x10 3/uL) 0.13 0.08 0. 10 Baso # (Auto) (0.0 - 0.2 x10 3/uL) 0.05 0.06 0. 07 Abs Immat Gran (auto) (0.00 - 0.03 x10 3/uL) 0. 13 H 0.14 H 0.11 H Add Manual Diff NO NO NO Immature Gran % (0.0 - 2.0 %) 0.7 0.8 0.6 Nucleated RBC % (0 - 0 %) 0.0 0.0 0.0 Nucleated RBCs # (Man) (0.0 - 0.1 x10 3/uL) 0.0 0 0.00 0.00 Laboratory Tests 12/05 448 Urines Urine Color (YEL/STRAW) RED H Urine Appearance (CLEAR) SL CLOUDY H Urine pH (5.0 - 7.0) 5.0 Ur Specific [place] (1.005 - 1.030) 1.020 Urine Protein (NEGATIVE) 3+ H Urine Glucose (UA) (NEGATIVE) 3+ H Urine Ketones (NEGATIVE) 1+ H Urine Blood (NEGATIVE) 5+ Urine Nitrite (NEGATIVE) NEGATIVE Urine Bilirubin (NEGATIVE) NEGATIVE Urine Urobilinogen (0.2 - 1.0 mg/dL) 0.2 Ur Leukocyte Esterase (NEGATIVE) 3+ H Urine RBC (0 - 3 RBC/HPF) >50 H Urine WBC (0 - 3 WBC/HPF) 10-20 H Ur Squamous Epith Cells (NONE SEEN /HPF) 0-5 Urine Bacteria (NONE SEEN /HPF) 2+ H Hyaline Casts (NONE SEEN /LPF) 6-10 Urine Mucus (NONE SEEN /LPF) TRACE Microbiology: 12/05 448 URINE: Urine Culture - WKST 12/05 0030 NASAL: MRSA DNA Surveillance Screen - RECD Radiology data: Recent Impressions: RADIOLOGY - XR CHEST 1 V 12/05 0744 Report Impression - Status: SIGNED Entered: 12/05/2022 0843 IMPRESSION: 1. Mild enlarged cardiac silhouette. 2. Mild interstitial pulmonary edema versus infi ltrates. Impression By: [email or web address] - Bruno Tineo M.D. ULTRASOUND - [facility]/L[facility] 12/05 1148 Report Impression - Status: SIGNED Entered: 12/05/2022 1237 IMPRESSION: 1. Limited right groin assessment by overlying b andages. Unable to assess for pseudoaneurysm or fistula at this moment. 2. Negative for soft tissue hematoma. 3. Patent right lower extremity venous system wi th normal compressibility. Impression By: [email or web address] - Clinton escobedo M.D. Free Text Obj Notes Free Text Obj Notes: GEN: Patient is calm and in no distress. NECK: Supple, no JVD or thrush. No adenopathy. LUNGS: Clear lungs, no wheezes, no rales or crac kles. CV: Severe bradycardia, no murmurs are heard. No S3 or rubs. GI: Abdomen is soft, not tender. Bowel sounds ar e present. EXT/Musc: No edema. No clubbing or cyanosis note d. Skin is warm. NEURO: Awake and oriented x 3. No focal findings . Diagnosis, Assessment Plan Diagnosis, Assessment Plan Problem list/A P: 1. DM type 2 (diabetes mellitus, type 2) 2. Dyslipidemia 3. JAMEY (obstructive sleep apnea) 4. Afib 5. Bradycardia 6. Acute renal failure (ARF) 7. Leukocytosis Free text DxA P: Continue supplemental oxygen and titrate FiO2 to keep saturation more than 90%. EP consult for possible pacemaker placement Echocardiogram Dopamine drip No beta-blockers or calcium channel blockers Hydralazine as needed for blood pressure control Hemodialysis per nephrology Monitor kidney function and trend creatinine Monitor and replete electrolytes Strict I O's Diet with bowel regimen Blood glucose control, sliding scale insulin VTE prophylaxis, SCDs Discussed with ICU team and hospitalist Critical care time 43 minutes at 1543 RPT #:[id number] END OF REPORT 2017-03-05 EXAM: VIR US-guided right shoulder mass biopsy/a spiration [facility] 11:02:00-00:00 DATE: 03/05/2017 11:02 AM CDT Ce nter PROCEDURE(S) PERFORMED: Limited right shoulder u ltrasound. INDICATION: 66 years old Male with right shoulde r mass/cyst. FACULTY: Elizabeth Barreto MD RESIDENT/FELLOW/EQUIPMENT OILER: Duran Lowe MD ANESTHESIA/SEDATION: None PHYSICIAN SUPERVISED ANESTHESIA TIME: Not applic able. SPECIMEN: None DRAINS: None ESTIMATED BLOOD LOSS: None. COMPLICATIONS: None immediate PROCEDURE: After the risks, benefits, a nd alternatives of the procedure were explained to the patient, verbal and written consent was obtained and a copy was placed on the chart. Patient was brought to the US suit e and a time-out was perform ed. Preliminary ultrasound examination of the palpable right shoulder lesion demonstrated no identifiable mass/cyst. As a result no biopsy or aspiration was performed. FINDINGS: Images demonstrate normal bernal bcutaneous soft tissue overlying the right shoulder without identifiable solid or cystic mass lesion. No abnormal color Doppler flow is identified. IMPRESSION: 1. Unremarkable right should er soft tissues without identifiable mass lesion. No biopsy or aspiration was performed. Dr. Elizabeth Barreto MD was present for the pr ousmane. 2017-01-29 TAYLOR Xiong 17:47:39-00:00 EXAM: Right shoulder wo contrast MRI INDICATION: M24.819 Other sp ecific joint derangements of unspecified shoulder, not elsewhere classified - M24.819 Other specific joint derangements of unspecified shoulder, not elsewhere classified COMPARISON: None. TECHNIQUE: Multiplanar, mult isequence magnetic resonance imaging of the right shoulder was performed without the administration of intravenous gadolinium contrast. FINDINGS: Glenohumeral joint: Negative for acute bony fracture or joint dislocation. Multifocal subcortical cystic changes along the anterior and posterolateral humeral head are seen. High-grade cartilage fissuri ng with mild underlying cyst ic change along the inferior glenoid rim is seen. Tear throughout the inferior glenoid labrum is seen with overlying 4 mm paralabral cyst. Additional scattered low to moderat e grade partial-thickness ca rtilage fissures long the inferior glenoid fossa are noted. Mild synovitis of the glenohumeral joint is seen. No capsular abnormality is present. Osseous acromion complex: Th e acromion is type I in morphology and shows horizontal orientation without significant narrowing of the supraspinatus outlet. No os acromiale is seen. There is mild AC joint osteoarthrosis with mild ch ondral thinning, synovitis, and periarticular cystic change. Rotator cuff tendons: Mild r otator cuff tendinosis is seen. Negative for rotator cuff tear. Biceps tendon: Intact and without subluxation or dislocation. Soft tissues: No extracapsul ar mass is seen. No muscular atrophy or denervation edema is noted. Small amount of fluid distends the subcoracoid bursa. IMPRESSION: 1. Tear throughout the infer ior glenoid labrum with overlying 4 mm paralabral cyst. 2. High-grade chondrosis vj ng the inferior glenoid rim with mild underlying cystic change. 3. Mild rotator cuff tendinosis. Negative for ro tator cuff tear. 4. Mild synovitis of the glenohumeral joint. 5. Mild AC joint osteoarthrosis. SL: DESMOND
[2022-12-14 10:02] LABS: Absolute Lymphocytes (CBC) 1.6 K/uL (0.7-4.9); Hematocrit 31.6 % (39.6-49.0); Lymphocytes % 10.7 % (15.3-44.8); MCV 91.6 fL (80-100); MPV 8.3 fL (7.6-11.3); Platelets 349 thou/uL (152-406); RBC Red Blood Cell Count 3.45 M/uL (4.33-5.43)
[2022-12-14 10:11] LABS: Protime INR 1.91
[2022-12-14 10:19] LABS: Potassium 4.1 mEq/L (3.5-5.1)
[2022-12-14] MEDS ORDERED: NA CHLORIDE 0.9% 1,000 ML ONE (10:50)
--- NOTE | 2022-12-14 10:50 | RAD REPORT ---
EXAM DESCRIPTION: US - Extremity Venous Uni Ltd - 12/14/2022 10:25 am CLINICAL HISTORY: Swelling COMPARISON: None. TECHNIQUE: Real-time sonographic evaluation of the right lower extremity deep venous system was perf ormed. FINDINGS: Poor penetration at the level of the groin due to a known nonlocalized hematoma limits ene luation. Normal compressibility, flow augmentation, phasic flow and spontaneous flow is identified in the left right lower extremity deep venous system. No intraluminal filling defects seen. IMPRESSION: No evidence DVT in the right lower extremity that allowing for the limitation mentioned above.
--- NOTE | 2022-12-14 11:23 | RAD REPORT ---
EXAM DESCRIPTION: CT - Lower Ext Angio - 12/14/2022 10:46 am CLINICAL HISTORY: s/p picc line COMPARISON: Lower Extremity Artery Uni Ltd dated 12/14/2022; Extremity Venous Uni Ltd dated 12/14/2022 TECHNIQUE: Thin cut axial angiographic CT imaging of the right lower extremity was performed followi ng intravenous administration of 100 mL Isovue 370. Multiplanar reformats were generated and reviewed , including maximum intensity projection reformats. All CT scans are performed using dose optimization technique as appropriate and may include automated exposure control or mA/KV adjustment according to patient size. FINDINGS: The right internal and external iliac arteries, right common femoral and the femoral arter ies, popliteal artery, anterior, and posterior tibial, and peroneal arteries are patent. The superfic ial femoral artery is patent, with a focal luminal irregularity along its proximal aspect, and adjace nt lobulated opacified structure anterior laterally, measuring 2.2 x 1.1 centimeter, suggestive of a pseudoaneurysm. A heterogeneous, partially hyperdense hematoma, dissects along the body of the vastus medialis muscle, without localized margins. Venous structures are not well evaluated given contrast timing. Adjacent subcutaneous edema and skin thickening throughout the right upper thigh. No suspicio us osseous abnormality. IMPRESSION: Enhancing lobulated 2.2 x 1.1 cm probable pseudoaneurysm, at the level of the proximal r ight superficial femoral artery. Adjacent non localized heterogeneous hematoma dissecting along the body of the vastus medialis.
--- NOTE | 2022-12-14 11:29 | RAD REPORT ---
EXAM DESCRIPTION: US - Lower Extremity Artery Uni Ltd - 12/14/2022 10:25 am CLINICAL HISTORY: Swelling;Pain COMPARISON: Lower Ext Angio dated 12/14/2022 TECHNIQUE: Right lower extremity arterial Doppler examination was performed with waveform tracing. FINDINGS: Pseudoaneurysm in the upper thigh, adjacent to the course of the superficial femoral arter y. This is measured at 6.0 x 4.1 cm in greatest dimensions on ultrasound, although the arterially opa cified region is much smaller as measured on the CT angiogram of the same day. The remainder of the a diogenes containing flow on the color duplex images may relate to nonthrombosed portion of the known upper thigh hematoma, versus a portion of the pseudoaneurysm demonstrating slow flow. The right lower extremity arterial structures demonstrate triphasic flow. IMPRESSION: Upper thigh pseudoaneurysm, with some discrepancy in size between pseudoaneurysm measure ments on CT versus ultrasound, for reasons described above. No evidence of arterial obstruction or peripheral vascular disease.
[2022-12-14] MEDS ORDERED: MORPHINE 4 MG/ML SYR ONE (11:40)
--- NOTE | 2022-12-14 12:05 | ER ---
Nurse's Notes [facility] Name: Sony Luciano Age: 72 yrs Sex: Male : 1950 Arrival Date: 12/14/2022 Time: 09:17 Bed 17 Private MD: Rom Hamilton V Diagnosis: Femoral pseudoaneurysm;Postprocedural hematoma of a musculoskeletal structure following other procedure Presentation: 12/14 09:33 Chief complaint: Spouse and/or significant other states: pt had umbilical hernia eh3 surgery about 2 weeks ago and had allergic reaction to Bactrim which caused kidney failure, went to [place] and had pacemaker and PICC line put in. Currently having severe pain at right groin PICC line site. Coronavirus screen: Vaccine status: Patient reports receiving the 2nd dose of the covid vaccine. Ebola Screen: No symptoms or risks identified at this time. Initial Sepsis Screen: Does the patient meet any 2 criteria? No. Patient's initial sepsis screen is negative. Does the patient have a suspected source of infection? Yes:. Risk Assessment: Do you want to hurt yourself or someone else? Patient reports no desire to harm self or others. Onset of symptoms was December 14, 2022. 09:33 Method Of Arrival: Wheelchair 3 09:33 Acuity: CHRIS 3 eh3 Triage Assessment: 09:35 General: Appears in no apparent distress. uncomfortable, Behavior is calm, cooperative, eh3 appropriate for age. Pain: Complains of pain in right femoral area. Historical: - Allergies: 09:35 Bactrim; eh3 - PMHx: 09:35 Irregular heart rate; eh3 - PSHx: 09:35 Umbilical hernia; eh3 - Immunization history:: Adult Immunizations up to date. - Social history:: Smoking status: unknown. - Family history:: not pertinent. - Hospitalizations: : No recent hospitalization is reported. Screenin:21 [facility] ED Fall Risk Assessment (Adult) Score/Fall Risk Level 0 - 2 = Low Risk. Abuse me1 screen: Denies threats or abuse. Nutritional screening: No deficits noted. Tuberculosis screening: No symptoms or risk factors identified. Assessment: 10:21 General: Appears uncomfortable, obese, Behavior is calm, cooperative, appropriate for me1 age. Pain: Complains of pain in right groin Pain does not radiate. Pain currently is 9 out of 10 on a pain scale. Quality of pain is described as burning, Pain began 1 day ago. Neuro: Level of Consciousness is awake, alert, obeys commands, Oriented to person, place, time, situation, Appropriate for age. Cardiovascular: Capillary refill < 3 seconds Patient's skin is warm and dry. Respiratory: Respiratory effort is even, unlabored, Respiratory pattern is regular, symmetrical. GI: Patient currently denies constipation, diarrhea, nausea, vomiting. :. Musculoskeletal: Swelling present in right leg. 11:50 Reassessment: Initiated transfer to [facility]. DX psudoaneurysm with hematoma. ss Spoke with Xiao who states she will send the information over to the transfer center and will have them call back momentarily. 12:20 Reassessment: Patient appears in no apparent distress at this time. No changes from me1 previously documented assessment. 13:06 General: Called report to [facility]. Report given to Thor Benson RN. . me1 Vital Signs: 09:33 BP 156 / 79; Pulse 72; Resp 18; Temp 98.4(O); Pulse Ox 97% ; eh3 11:01 BP 160 / 89; Pulse 71; Resp 18; Pulse Ox 98% on R/A; ph 11:57 BP 164 / 85; Pulse 71; Resp 17; Pulse Ox 98% on R/A; me1 12:46 BP 166 / 83; Pulse 71; Resp 18; Pulse Ox 96% on R/A; ph 13:41 BP 161 / 93; Pulse 72; Resp 17; Pulse Ox 95% on R/A; Pain 0/10; me1 13:41 Pain Scale: Adult me1 ED Course: 09:19 Patient arrived in ED. rg4 09:20 Rom Hamilton MD is Private Physician. rg4 09:20 Papo Acosta MD is Attending Physician. rn 09:35 Triage completed. eh3 09:35 Arm band placed on. eh3 09:53 Protime (+inr) Sent. ph 09:53 Ptt, Activated Sent. ph 09:53 Basic Metabolic Panel Sent. ph 09:53 CBC with Diff Sent. ph 09:53 Inserted saline lock: 20 gauge in right antecubital area, using aseptic technique. ph 10:21 Patient has correct armband on for positive identification. Placed in gown. Bed in low me1 position. Call light in reach. Side rails up X 1. Provided Education on: POC, verbalized understanding. . 10:21 No provider procedures requiring assistance completed. me1 10:27 Extremity Venous Uni Ltd US In Process Unspecified. EDMS 10:27 Lower Extremity Artery Uni Ltd US In Process Unspecified. EDMS 10:36 Roselyn Kay, RN is Primary Nurse. me1 10:48 Lower Ext Angio In Process Unspecified. EDMS Administered Medications: 11:01 Drug: NS 0.9% IV 500 ml Route: IV; Rate: bolus; Site: right antecubital; ph 11:35 Follow up: IV Status: Completed infusion; IV Intake: 500ml me1 11:35 Drug: morphine IVP or IV 4 mg Route: IVP; Infused Over: 4 mins; Site: right antecubital;me1 13:04 Follow up: Response: No adverse reaction; Pain is decreased me1 Medication: 10:21 VIS not applicable for this client. me1 Intake: 11:35 IV: 500ml; Total: 500ml. me1 Outcome: 12:04 ER care complete, transfer ordered by . rn 13:48 Transferred by ground EMS to other acute care facility: [facility]. Transfer form me1 completed. 13:48 Condition: stable 13:48 Instructed on the need for transfer. 13:50 Patient left the ED. me1 Signatures: Dispatcher [employer] EDPapo Blanco MD MD rn Blanchard, Shelby, RN RN Fanny Whitlock RN RN Dian Naranjo 4 Rebeca Whitlock RN RN [facility] Roselyn Kay, RN RN me1
--- NOTE | 2022-12-14 12:05 | EDPHYS ---
Physician Documentation [facility] Name: Sony Luciano Age: 72 yrs Sex: Male : 1950 Arrival Date: 12/14/2022 Time: 09:17 Bed 17 Private MD: Rom Hamilton V ED Physician Papo Acosta HPI: 12/14 10:39 This 72 yrs old Male presents to ER via Wheelchair with complaints of Sent By sara Hamilton leg problem. 10:39 The patient presents with pain, swelling. The complaints affect the right inner thigh rn and medial aspect of right thigh. Onset: The symptoms/episode began/occurred 1 week(s) ago. Modifying factors: The symptoms are alleviated by nothing. the symptoms are aggravated by nothing. Associated signs and symptoms: Pertinent positives: swelling, Pertinent negatives fever, weakness. Severity of symptoms: At their worst the symptoms were moderate, in the emergency department the symptoms are unchanged. The patient has not experienced similar symptoms in the past. Pt sent in by Dr. Hamilton for swelling and pain to right leg, recently has accidental arterial puncture during placement of catheter for dialysis in [facility], had temp dialysis, and improvement of renal function. Started on anticoagulation last week, feels like leg is getting more swollen. No injury, but has been walking and mobile. . Historical: - Allergies: 09:35 Bactrim; eh3 - PMHx: 09:35 Irregular heart rate; eh3 - PSHx: 09:35 Umbilical hernia; eh3 - Immunization history:: Adult Immunizations up to date. - Social history:: Smoking status: unknown. - Family history:: not pertinent. - Hospitalizations: : No recent hospitalization is reported. ROS: 10:39 Constitutional: Negative for fever, chills, and weight loss, Cardiovascular: Negative rn for chest pain, palpitations, and edema, Respiratory: Negative for shortness of breath, cough, wheezing, and pleuritic chest pain, Abdomen/GI: Negative for abdominal pain, nausea, vomiting, diarrhea, and constipation, Back: Negative for injury and pain, MS/Extremity: + swelling and pain to right leg Skin: Negative for injury Neuro: Negative for headache, weakness, numbness, tingling, and seizure. Exam: 10:39 Constitutional: This is a well developed, well nourished patient who is awake, alert, rn and in no acute distress. Head/Face: Normocephalic, atraumatic. Cardiovascular: Regular rate and rhythm. No pulse deficits. Respiratory: No increased work of breathing, no retractions or nasal flaring. Abdomen/GI: Soft, non-tender MS/ Extremity: Pulses equal, no cyanosis. Neurovascular intact. + swelling of entire right thigh, with bruising and ecchymosis along anterior and mid right thigh, with focal nodular swelling over right femoral vessels proximally. Neuro: Awake and alert, GCS 15 Vital Signs: 09:33 BP 156 / 79; Pulse 72; Resp 18; Temp 98.4(O); Pulse Ox 97% ; eh3 11:01 BP 160 / 89; Pulse 71; Resp 18; Pulse Ox 98% on R/A; ph 11:57 BP 164 / 85; Pulse 71; Resp 17; Pulse Ox 98% on R/A; me1 12:46 BP 166 / 83; Pulse 71; Resp 18; Pulse Ox 96% on R/A; ph 13:41 BP 161 / 93; Pulse 72; Resp 17; Pulse Ox 95% on R/A; Pain 0/10; me1 13:41 Pain Scale: Adult me1 MDM: 09:20 Patient medically screened. rn 12:03 Differential diagnosis: pseudoaneurysm, DVT, hematoma, bleeding. Data reviewed: vital rn signs, nurses notes, lab test result(s), radiologic studies, CT scan, ultrasound, and as a result, I will admit patient. Counseling: I had a detailed discussion with the patient and/or guardian regarding: the historical points, exam findings, and any diagnostic results supporting the discharge/admit diagnosis, lab results, radiology results, the need for further work-up and treatment in the hospital, the need to transfer to another facility, for higher level of care, [facility] does not immediately have the required specialist. Response to treatment: the patient's symptoms have mildly improved after treatment, and as a result, I will admit patient. 12/14 09:39 Order name: CBC with Diff; Complete Time: 10:23 rn 12/14 09:39 Order name: Basic Metabolic Panel; Complete Time: 10:23 rn 12/14 09:39 Order name: Protime (+inr); Complete Time: 10:23 rn 12/14 09:39 Order name: Ptt, Activated; Complete Time: 10:23 rn 12/14 09:39 Order name: Extremity Venous Uni Ltd US; Complete Time: 10:55 rn 12/14 09:39 Order name: Lower Extremity Artery Uni Ltd US; Complete Time: 11:29 rn 12/14 09:45 Order name: Lower Ext Angio; Complete Time: 11:25 EDMS 12/14 09:39 Order name: IV Start; Complete Time: 09:53 rn Administered Medications: 11:01 Drug: NS 0.9% IV 500 ml Route: IV; Rate: bolus; Site: right antecubital; ph 11:35 Follow up: IV Status: Completed infusion; IV Intake: 500ml me1 11:35 Drug: morphine IVP or IV 4 mg Route: IVP; Infused Over: 4 mins; Site: right antecubital;me1 13:04 Follow up: Response: No adverse reaction; Pain is decreased me1 Disposition Summary: 12/14/22 12:04 Transfer Ordered Transfer Location: Other Acute Care Facility rn Reason: Higher level of care rn Condition: Stable rn Problem: new rn Symptoms: have improved rn Accepting Physician: (12/14/22 13:50) me1 Diagnosis - Femoral pseudoaneurysm rn - Postprocedural hematoma of a musculoskeletal structure following other return checker Forms: - Medication Reconciliation Form rn - SBAR form rn Signatures: Dispatcher [employer] Papo Reynolds MD MD rn Hall, Patricia, RN RN Rebeca Whitlock RN RN [facility] Roselyn Kay RN RN me1 Corrections: (The following items were deleted from the chart) 13:50 12:04 rn me1
[2022-12-14 14:01] VITALS: TEMP 98.4
[2022-12-14 14:06] VITALS: BP 161/93; O2SAT 95
== END 2022-12-14 13:50 ==
LOC: ER 09:17
DX: I72.4 Aneurysm of artery of lower extremity (principal); M96.841 Postprocedural hematoma of a musculoskeletal structure following other procedure; Z79.01 Long term (current) use of anticoagulants; Z88.1 Allergy status to other antibiotic agents
CPT/HCPCS: 96361; 85025; 80048; 36415; 85610; 85730; 73706; 93926; 93971; 96374; 99285; Q9967; J7030